=== PATIENT | male | born 1945 | race Caucasian/White ===

== ENCOUNTER 2019-04-10 08:11 | Inpatient (IN) | payer MEDICARE, SELFPAY ==
[2019-04-10] VITALS (32 sets, daily range): BP systolic 80–150; BP diastolic 33–97; PULSE 61–82; RESP 11–27; TEMP 36.5–37.5; O2SAT 90–100; BMI 32.7
--- NOTE | 2019-04-10 08:16 | EKG12_ITS ---
Test Reason : AFIB Blood Pressure : / mmHG Vent. Rate : 083 BPM Atrial Rate : 115 BPM P-R Int : 000 ms QRS Dur : 110 ms QT Int : 380 ms P-R-T Axes : 000 -46 -79 degrees QTc Int : 446 ms Atrial fibrillation with premature ventricular or aberrantly conducted complexes Low voltage QRS Left anterior fascicular block Inferior infarct , age undetermined Abnormal ECG When compared with ECG of 11-APR-2019 04:46, MANUAL COMPARISON REQUIRED, DATA IS UNCONFIRMED Confirmed by EYAD ABEL, FELICITA ([id number]), editor farm journal NICK MAYER ([id number]) on 04/18/2019 7:06:34 AM Referred By: Johnny Pantoja Confirmed By:SARAH CASTANO MD
[2019-04-10] MEDS: TICAGRELOR 90 MG TABLET 180 MG PO (08:20)
[2019-04-10] MEDS: Heparin Injection (Vial) 5,000 UNIT/ML VIAL 4000 UNIT IV (08:20)
[2019-04-10] MEDS: Aspirin 81 MG TAB.CHEW 324 MG PO (08:20)
--- NOTE | 2019-04-10 08:28 | ED.DCSUM_ITS ---
- ER Visit Summary Date of Service: 04/10/19 Chief Complaint: Chest pain History of Present Illness: The patient is a 73 M presents to the emergency department chest pain. Patient has a history of atrial fibrillation and hypertension. He denies any history of coronary vascular disease. He states over the past 2 weeks, he had shortness of breath when he exerts himself. He is also had some intermittent chest tightness. He states it started yesterday he felt like he was taking his breath away. He also made him diaphoretic and nauseated. States the pain relieved overnight but then returned this morning. He describes a tightness in his throat and upper chest. He also feels more short of breath. He denies any fevers or chills. He states he is never had pain like this before. Physical Examination: Vital signs reviewed General: Well-nourished, well-developed Head: Normocephalic, atraumatic Eyes: Pupils equal and reactive, extraocular muscles intact Neck, supple, no lymphadenopathy Heart: Regular rate and rhythm Respiratory: No distress, clear bilaterally Abdomen: Soft, nontender, nondistended, no peritoneal signs Back: Nontender Extremities: Nontender, no edema, no cords Skin: Normal color no rash Neuro: Alert and oriented, no focal or lateralizing deficits the patient's initial EKG Test Results: Insert Emergency Department Course and Treatment: Shows evidence of posterior infarction. I do not have an old EKG to compare to. Based on the patient's symptoms and physical exam, I do suspect that this is an acute ST elevation myocardial infarction. Patient was discussed immediately with Dr. Pantoja and the Science Manager was activated. He was given aspirin, Brilinta, heparin. He was consented for catheterization. He will be taken immediately to the Science Manager.] Treatment Plan: [] Disposition: Admission Impression: 1. ST elevation myocardial infarction This note was generated with [employer] dictation software. It may contain incorrect words, spelling, and punctuation that were not noted in review of the chart prior to signing ED Disposition - Plan for ED Patient: [facility] [Primary Care Provider] -
[2019-04-10 08:35] LABS: Absolute Lymphocyte Count 2.14 X10^3/ul (0.83-4.51); Absolute Neutrophil Count 8.9 X10^3/uL (2.0-7.7); Basophil# 0.02 X10^3/uL; Basophil% 0.2 % (0-1); Eosinophil# 0.03 X10^3/uL; Eosinophils% 0.3 % (0-5); Hematocrit 47.2 % (40-54); Hemoglobin 16.8 g/dl (13.0-16.5); Lymphocyte # 2.14 X10^3/ul (4.0); Mean Corp Hgb Conc 35.6 g/gl (32-36); Mean Corpuscular Hgb 30.8 pg (27.0-32.0); Mean Corpuscular Volume 86.4 fL (80-94); Mean Platelet Vol. 11.7 fl (6.2-12.0); Monocyte% 6.7 % (0-10); Neutrophil # 8.85 X10^3/uL (2.7-7.7); Neutrophil % 74.5 % (47-70); POSITIVE COUNT NO; POSITIVE DIFFERENTIAL NO; POSITIVE MORPHOLOGY NO; Platelet Count 117 K/mm3 (150-450); RBC Distribution Width CV 13.3 % (11.6-14.6); RBC Distribution Width SD 41.6 fl (35.1-43.9); Red Blood Count 5.46 M/mm3 (4.6-6.2); White Blood Count 11.9 K/mm3 (4.4-11.0)
[2019-04-10 08:54] LABS: Anion Gap 11 (5-15); BUN 15 mg/dL (7-18); Calcium,Total 9.5 mg/dL (8.5-10.1); Chloride 109 mmol/L (98-107); Creatinine, Serum 0.94 mg/dL (0.70-1.30); EST Glomerular Filtration Rate 84 mL/min (>60); Est Glom Filt Rate - Afr Amer 102 mL/min (>60); Estimated Creatinine Clearance 82.59 ml/min; Glucose 126 mg/dL (74-106); Potassium 4.9 mmol/L (3.5-5.1); Sodium Level 142 mmol/L (136-145)
--- NOTE | 2019-04-10 09:47 | EKG12_ITS ---
Test Reason : AM EKG Blood Pressure : / mmHG Vent. Rate : 069 BPM Atrial Rate : 069 BPM P-R Int : 158 ms QRS Dur : 112 ms QT Int : 432 ms P-R-T Axes : 069 -44 006 degrees QTc Int : 462 ms Sinus rhythm Left axis deviation Low voltage QRS Inferior infarct , age undetermined Abnormal ECG When compared with ECG of 10-APR-2019 10:16, MANUAL COMPARISON REQUIRED, DATA IS UNCONFIRMED Confirmed by EYAD ABEL, FELICITA ([id number]), international editorial producer NICK MAYER ([id number]) on 04/18/2019 7:08:55 AM Referred By: Johnny Pantoja Confirmed By:SARAH CASTANO MD
--- NOTE | 2019-04-10 09:47 | ECHOCS_ITS ---
Reason For Study: CAD/ASHED Procedure This was a 2D Doppler, Color Flow transthoracic echocardiogram. The study was technically difficult. Due to body habitus and PT scanned supine due to ballon pump. Contrast injection was performed. Left Ventricle Mildly dilated left ventricle. The estimated ejection fraction is 50 %. Normal diastology for age. Infero-Basal: Mildly hypokinetic. Right Ventricle Mildly dilated right ventricle. Normal systolic function. Atria The left atrium is severely enlarged. Normal right atrium. Normal atrial septum. Mitral Valve The mitral valve is structurally normal. No prolapse or stenosis seen. Trivial mitral valve insufficiency. Tricuspid Valve Normal tricuspid valve. Trivial tricuspid valve insufficiency. Right ventricular systolic pressure estimated to be 32 mmHg. Aortic Valve Trisinus/trileaflet aortic valve. Pulmonic Valve The pulmonic valve is not well visualized. Great Vessels Normal aortic root. Normal arch. Normal inferior vena cava. Pericardium/Pleural No pericardial effusion. Medication Diluted definity 4.0ml given slow IV push to enhance endocardial definition. MMode/2D Measurements & Calculations LVIDd: 5.4 cm IVSd: 1.2 cm Ao root diam: 3.4 cm LVIDs: 4.2 cm LVPWd: 1.2 cm RVDd: 3.7 cm FS: 22.1 % LAV(MOD-bp): 115.4 ml LA A4 area: 30.7 cm2 LA dimension(2D): 5.6 cm LAV(MOD-bp) Indexed: 48.0 ml/m2 LAV(MOD-sp2): 110.7 ml LAV(MOD-sp4): 116.3 ml RA A4 area: 18.5 cm2 Time Measurements MV dec time: 0.21 sec Doppler Measurements & Calculations MV E max patrick: 45.0 cm/sec Lat Peak E' Patrick: 10.3 cm/sec Med Peak E' Patrick: 6.6 cm/sec MV A max patrick: 49.9 cm/sec E/E' lat: 4.4 E/E' med: 6.8 MV E/A: 0.90 Ao V2 max: 103.1 cm/sec LV V1 max: 83.5 cm/sec TR max patrick: 260.6 cm/sec Ao max P.3 mmHg LV V1 max P.8 mmHg TR max P.2 mmHg Interpretation Summary Mildly dilated left ventricle. The estimated ejection fraction is 50 %. Normal diastology for age. Infero-Basal: Mildly hypokinetic Mildly dilated right ventricle. The left atrium is severely enlarged. Trivial mitral valve insufficiency. Trivial tricuspid valve insufficiency. Right ventricular systolic pressure estimated to be 32 mmHg. The study was technically difficult. There is no comparison study available. Contrast injection was performed. Ordering Physician: Johnny Pantoja Referring Physician: [facility] Performed By: Shelbie Ambrose RDCS, RVT
[2019-04-10] MEDS: HEPARIN/D5w 25,000 UNITS 25,000 UNITS/250 ML IV.SOLN. 10 UNITS IV (10:00)
--- NOTE | 2019-04-10 10:00 | NURSING ---
in ICU 7 per bed from mill labor supervisor, mill labor supervisor staff in attendance
--- NOTE | 2019-04-10 10:00 | EKG12_ITS ---
Test Reason : Blood Pressure : / mmHG Vent. Rate : 076 BPM Atrial Rate : 076 BPM P-R Int : 148 ms QRS Dur : 112 ms QT Int : 436 ms P-R-T Axes : 070 -27 057 degrees QTc Int : 490 ms Normal sinus rhythm Inferior infarct , age undetermined Abnormal ECG When compared with ECG of 10-APR-2019 10:14, MANUAL COMPARISON REQUIRED, DATA IS UNCONFIRMED Confirmed by EYAD ABEL, FELICITA ([id number]), market editor NICK MAYER ([id number]) on 04/18/2019 7:11:41 AM Referred By: Johnny Pantoja Confirmed By:SARAH CASTANO MD
[2019-04-10] MEDS: 0.9% Normal Saline 1,000 ML 150 ML IV ×2 (10:30→21:05)
[2019-04-10 10:36] LABS: ACT Activated Clotting Time 224 sec (74-137)
[2019-04-10 10:36] LABS: ACT Activated Clotting Time 213 sec (74-137)
--- NOTE | 2019-04-10 10:55 | CL.I_ITS ---
Patient Name: MONISHA VALERIO Study Date: 04/10/2019 Performing: Johnny Pantoja MD Ht: 74 inches 188 cm : 1945 Wt: 256.1 lbs 116 kg Age: 73 Gender: male BSA: 2.41 PROCEDURE(S) PERFORMED LI92-EMM/COR/LV [id number], PRADEEP AND/OR PTCA, ARTERY OR GRAFT, SINGLE VESSEL [id number] INSERTION CLINICAL PROFILE AND CO-MORBIDITIES Patient presents with STEMI for emergent cardiac cath. Indications: ACS <= 24 hrs, New Onset Angina <= 2 months, Suspected CAD, Other/STEMI Heart Failure: NYHA Class: 1, Newly Diagnosed: Yes, Heart Failure Type: Systolic Stress/Imaging Stress/Image Study Performed: No Angina Classification Anginal Classification w/in 2 Weeks: CCS IV CAD Presentations: STEMI. Symptom onset Date/Time: 04/09/2019 Time Not Available Comorbidities/Risk Factors: Hypertension Dyslipidemia Family History of Premature CAD CONCLUSIONS Segmented LV systolic dysfunction- Moderate LVEF: by LV gram 45 % Elevated Left Ventricular End Diastolic Pressure Triple vessel CAD of the LM, LAD, LCX, RCA and PDA. Successful PTCA/PRADEEP distal RCA with a 3.0 x 16 Promus Synergy, post dilated with a 3.0 x 8 NC Balloon ; 90%-->0%, no dissection or plaque shift into ostial PDA> Unable to cannulate PDA with multiple wires so no PCI of PDA performed. Will leave for CABG vs elect milind PCI in the future. RECOMMENDATIONS Referred for immediate PCI Surgery consult for coronary revascularization Highly recommend quitting all tobacco products Follow up with primary security strategist Risk factor modification ASA Indefinitley Plavix for at least 12 months Routine post interventional care Refer for Outpatient Cardiac Rehab Manual sheath removal per protocol Emergent IABP placed given hypotension, bradycardia, LV dysfunction and severe multi vessel CAD of LM and LAD. Follow up with Dr. Pantoja Will refer to CV surgeon for either high risk PCI to LM, LAD and/or LCX vs CABG. DESCRIPTION OF PROCEDURE The patient arrived to the procedure lab. The risks and benefits of the procedure as well as a full d escription of our services here and lack of surgical backup were fully explained to the patient and/o r their significant other prior to the catheterization. The Timeout was completed, verifying the inocente ect patient and procedure. The patient's procedural site was prepped and draped in the usual fashion. Local anesthetic was given subcutaneously to right groin region with Lidocaine 2%. Using a modified Seldinger technique, arterial access was obtained via the right femoral artery, a 6Fr sheath was inse rted.. Left Coronary Artery selective angiography was performed in multiple views using a 4 Fr. JL5 catheter. Right Coronary Artery selective angiography was then performed in multiple views using a 6 Fr. HS II guide. Left Ventriculography was performed in VIVAS projection using a 4 Fr. Pigtail catheter . LV to AO pullback pressures were then recordedArrow 40cc 7.5F UltraFlex IABP - Qty: 1 Each Part #: [id number], A 40cc IABP catheter was inserted into the right femoral artery, The IABP catheter and sheath were secured in placeThe images were reviewed and options discussed. A decision was then made to proceed with an Intervention, IVUS or other adjunct procedure. HS II Guide catheter was inserted and engaged into the RCA. Runthrough Guide wire was advanced to the RCA. 2 x 12 Emerge Balloon catheter was advanced across lesion in the right coronary, distal. PT CA balloon inflated at 6 atms for 10 secs. PTCA balloon inflated at 6 atms for 10 secs. 2 x 12 Emerge Balloon catheter was inserted on runthrough 2. 3.0 x 16 Synergy Drug Eluting stent was advanced acro ss the lesion in the right coronary, distal. Angiogram performed post stent deployment. 3.0 x 8 NC Em erge Balloon catheter was inserted post stent. Angiogram performed post balloon dilatation. The art erial sheath was sutured in place with heparinized normal saline under pressure CORONARY ANGIOGRAPHY DOMINANCE: Right Dominant LEFT HEART ASSESSMENT Left Ventricular Ejection Fraction: by LV Gram 45 % Depressed Left Ventricular systolic function LVEDP: 18 mmHg Elevated Left Ventricular End Diastolic Pressure Inferior Mid Hypokinesis - Moderate LEFT MAIN: 80 distal % Stenosis LEFT ANTERIOR DESCENDING ARTERY: MID LAD: 75 % Stenosis CIRCUMFLEX ARTERY: PROX CIRC: 65-70 % Stenosis RIGHT CORONARY ARTERY: PROX RCA: Mild luminal irregularities less than 30% DISTAL RCA: 90 % Stenosis RT PLV: No significant disease noted RT PDA: Mid - 85 % Stenosis INTERVENTION INFORMATION LESION SITE: RCA (Distal) Lesion Complexity: High/C, thrombus present: Yes, lesion at bifurcation: No, lesion length: 16 mm, cu lprit lesion: Yes Pre Stenosis: 90 % Pre intervention LEENA flow: 2 PROCEDURE: Drug Eluting Stent with pre and post dilatation Post Stenosis: 0 % Post intervention LEENA flow: 3 Lesion Devices: Medtronic 6 Fr HSII 100cm Guide Catheter Terumo .014 Runthrough Extra Floppy 180cm straight Iraj Sci EMERGE MR 2.00x12 BALLOON Terumo .014 Runthrough Extra Floppy 180cm straight Iraj Sci Synergy MR PRADEEP 3.00x16 Iraj Sci NC EMERGE MR 3.00x08 BALLOON COMPLICATIONS No Complications PROCEDURE MEDICATIONS Oxygen: 2 L/min via nasal cannula Atropine 1mg/10ml 0.5 amp @ 04/10/2019 08:50:53 Heparin 6000 unit(s) IV 04/10/2019 08:40:33 Heparin 25,000u / 250ml D5W @ 800 u/hr IV started 04/10/2019 09:31:05 Nitro 200 mcg IC 04/10/2019 08:43:25 Nitro 200 mcg IC 04/10/2019 08:43:25 Nitro 200 mcg IC 04/10/2019 09:12:58 IV Bolus: .9 NaCl 1100 ml total 04/10/2019 09:30:48 SUMMARY OF HEMODYNAMIC DATA Time AIR REST AO 125/89 (107) SA 08:35:41 AO 149/86 (113) 08:40:26 AO 79/48 (61) 08:50:17 LV 109/-4, 18 09:21:20 LVp 107/-7, 17 09:21:23 AOp 100/44 (66) 09:21:28 Signed By Johnny Pantoja MD On 04/10/2019 10:55:18 Johnny Pantoja MD
--- NOTE | 2019-04-10 11:49 | HP.PCM_ITS ---
Problem List (1) Hypertension Status: Chronic (2) Dyslipidemia Status: Chronic (3) Obstructive sleep apnea Status: Chronic Comment: On CPAP (4) Paroxysmal atrial fibrillation Status: Chronic (5) Right bundle branch block Status: Chronic (6) Obesity Status: Chronic (7) Chronic anticoagulation Status: Chronic (8) Nephrolithiasis Status: Chronic Comment: X 1 in the past (9) STEMI (ST elevation myocardial infarction) Status: Acute (10) Atherosclerotic heart disease of [place] coronary artery with other forms of angina pectoris Status: Chronic (11) Stented coronary artery Status: Acute Comment: Segmented LV systolic dysfunction- Moderate; LVEF: by LV gram 45 %; Elevated Left Ventricular End Diastolic Pressure; Triple vessel CAD of the LM, LAD, LCX, RCA and PDA. Successful PTCA/PRADEEP distal RCA with a 3.0 x 16 Promus Synergy, post dilated with a 3.0 x 8 NC Balloon; 90%-->0%, no dissection or plaque shift into ostial PDA> Unable to cannulate PDA with multiple wires so no PCI of PDA performed. Will leave for CABG vs elective PCI in the future. History of Present Illness Date of Admission: 04/10/19 Chief Complaint: Chest pain with shortness of breath, diaphoresis, nausea, radiation to the neck and left arm The patient is a 73 year old M with a past medical history of hypertension, dyslipidemia, paroxysmal atrial fibrillation, chronic anticoagulation with Eliquis, nephrolithiasis, obstructive sleep apnea, family history of premature CAD and obesity who presented to the ED at [facility] on 04/10/2019 complaining of crushing substernal and left chest pain that radiated to the neck and down the left arm and was associated with diaphoresis, nausea and shortness of breath. He had been having stuttering chest pain for the pr eceding 7 to 10 days that came on with exertion but then went away. The chest pain became constant on 04/09/2019. EKG in the emergency room showed ST elevation and a STEMI alert was called. He was taken to the [facility] by Dr. Pantoja and the cath showed a 45% ejection fraction on the left ventriculogram. There was elevated left ventricular end-diastolic pressure and triple disease involving the LM, LAD, LCx, RCA and PDA. He underwent successful PTCA/PRADEEP of the distal right coronary artery. Dr. Pantoja was unable to cannulate the PDA so no PCI was performed. Postprocedure he was transferred to the intensive care unit on a balloon pump at 1:1. Lab and imaging in the emergency department were reviewed. White blood cell count was 11.9 and the hemoglobin 16.8. Platelets are low at 117,000. BMP is unremarkable. Creatinine is 0.94. Random glucose is 126. Troponin was increased at 8.28. No CXR done in the ED. Past Medical History Past Medical History (Chronic Problems): Chronic Problems (Last Reviewed 04/10/19 @ 11:54 by Seema Jay DO) Hypertension (Chronic) Dyslipidemia (Chronic) Obstructive sleep apnea (Chronic) On CPAP Paroxysmal atrial fibrillation (Chronic) Right bundle branch block (Chronic) Obesity (Chronic) Chronic anticoagulation (Chronic) Nephrolithiasis (Chronic) X 1 in the past Atherosclerotic heart disease of [place] coronary artery with other forms of angina pectoris (Chronic) Medical History: Medical History (Last Reviewed 04/10/19 @ 11:54 by Seema Jay DO) STEMI (ST elevation myocardial infarction) (Acute) I21.3 Atherosclerotic heart disease of [place] coronary artery with other forms of angina pectoris (Chronic) I25.118 Allergies No Known Allergies Allergy (Verified 04/10/19 08:17) Home Medications: Ambulatory Orders Medication Instructions Recorded Acetaminophen [Tylenol Extra 500 mg PO Q6H PRN PRN 04/10/19 Strength] Albuterol IH (ProAir) [Proair Hfa 1 - 2 puff INHALATION Q6H PRN PRN 04/10/19 (SP)Vent Pts] Apixaban [Eliquis] 5 mg PO BID 04/10/19 Loratadine [Claritin] 10 mg PO DAILY PRN PRN 04/10/19 Metoprolol Tartrate [Lopressor 25 mg PO BID 04/10/19 (Beta Kaitlin)] Triamcinolone 0.1% Cream [Kenalog] 1 applic TOPICAL BID PRN 04/10/19 Surgical History: Surgical History (Last Reviewed 04/10/19 @ 11:54 by Seema Jay DO) Stented coronary artery (Acute) Onset Date: 04/10/19 Z95.5 Segmented LV systolic dysfunction- Moderate; LVEF: by LV gram 45 %; Elevated Left Ventricular End Diastolic Pressure; Triple vessel CAD of the LM, LAD, LCX, RCA and PDA. Successful PTCA/PRADEEP distal RCA with a 3.0 x 16 Promus Synergy, post dilated with a 3.0 x 8 NC Balloon; 90%-->0%, no dissection or plaque shift into ostial PDA> Unable to cannulate PDA with multiple wires so no PCI of PDA performed. Will leave for CABG vs elective PCI in the future. Surgical History: noncontributory, - - Bilateral repair of torn quadriceps for Antonio muscles by Dr. Nick Soares. Psychiatric History: No pertinent psych hx Lives: Spouse/ Significant Other Smoking Status: Never smoker Tobacco Use: Non-smoker Alcohol: Rare Drugs: None - *Family History Maternal History Items: - - His mother of complications of COPD and she was a smoker. Paternal History Items: - - His father passed with cardiac disease and he was also a smoker. Sibling History Items: - - He has 2 sisters and neither of them have coronary disease. Review of Systems Constitutional: Denies: Chills, Fever, Weight Change HEENT: Denies: Head Aches, Sinus Congestion, Sinus Drainage Cardiovascular: Reports: Chest Pain, Heaviness, Palpitations. Denies: Light Headedness, Syncope Respiratory: Reports: Shortness of breath at rest, Shortness of breath upon exertion. Denies: Cough, Sputum production Gastrointestinal: Reports: Nausea. Denies: Abdominal Pain, Vomiting Genitourinary: Reports: Nocturia - Every 3-4 hours at night. Denies: Dysuria, Hesitancy, Incontinence, Retention, Urgency Musculoskeletal: Reports: Arm Pain - Left arm pain and neck pain associated with chest pain, Neck Pain. Denies: Joint Pain, Joint Tenderness Skin: Denies: Jaundice, Rash, Wounds Neurological: Denies: Focal weakness, Numbness, Tingling, Tremor, Seizures Psychiatric: Denies: Anxiety, Depression, Homicidal Ideations, Suicidal Ideations Hematologic/ Lymphatic: Denies: Easy Bruising, Easy Bleeding, Hx of blood clot VTE Information - Inpt Only VTE Present on Admission: No VTE Mechan Device Prophylaxis: SCD's, Knee High MERT Hose VTE Pharm Prophylaxis ordered?: No Reason prophylaxis not ordered:: Treatment Not Indicated - Patient is on a continuous heparin infusion post cardiac cath Patient Problems: Active and Suspected Problems (Last Reviewed 04/10/19 @ 11:54 by Sharda Sementi, DO) STEMI (ST elevation myocardial infarction) (Acute) Stented coronary artery (Acute 04/10/19) Segmented LV systolic dysfunction- Moderate; LVEF: by LV gram 45 %; Elevated Left Ventricular End Diastolic Pressure; Triple vessel CAD of the LM, LAD, LCX, RCA and PDA. Successful PTCA/PRADEEP distal RCA with a 3.0 x 16 Promus Synergy, post dilated with a 3.0 x 8 NC Balloon; 90%-->0%, no dissection or plaque shift into ostial PDA> Unable to cannulate PDA with multiple wires so no PCI of PDA performed. Will leave for CABG vs elective PCI in the future. - Physical Exam General: Alert, Oriented x3, Cooperative, - - lying flat in bed in the ICU with balloon pump in the R groin HEENT: Atraumatic, PERRLA, EOMI, Normocephalic Oral: No Gingival or Mucosal Lesions/ Ulcerations, Dry Mucosa Neck: Supple, No JVD, Negative Carotid Bruits, Trachea Midline Lungs: Clear to auscultation - anterior and lateral, Normal air movement, - - Not tachypneic, no conversational dyspnea, no accessory muscle use Cardiovascular: Normal S1, Normal S2, No murmurs, Irregular Rate - NSR with PAF ( brief runs) when he is in AF he has a BBB, No rub noted, No Gallop Abdomen: Bowel Sounds Present, Soft, Non Tender, Non-Distended, Obese Extremities: No clubbing, No cyanosis, No edema, Capillary Refill Less than 3 Seconds, Diminished Peripheral Pulses - radial pulses are 3/3 but the pedal pulses are decreased Skin: No rashes, No breakdown Musculoskeletal: No Tenderness to Palpation of Joints or Extremities Neurological: Cranial nerves II-XII grossly intact, Neuro grossly intact Psych/Mental Status: Normal Affect, Appropriate Vital Signs Temp Pulse Resp BP Pulse Ox 98.1 F 80 20 H 150/85 H 99 04/10/19 08:12 04/10/19 08:12 04/10/19 08:17 04/10/19 08:12 04/10/19 08:12 Oxygen Delivery Method Room Air Weight: 255 lb Body Mass Index (BMI) 32.7 Laboratory Tests Past 24 Hrs 04/10/19 04/10/19 04/10/19 08:24 08:24 08:24 WBC 11.9 H RBC 5.46 Hgb 16.8 H Hct 47.2 MCV 86.4 MCH 30.8 MCHC 35.6 RDW 13.3 RDW Differential 41.6 Plt Count 117 L MPV 11.7 Immature Gran % (Auto) 0.300 Neut % (Auto) 74.5 H Lymph % (Auto) 18.0 L Churchill % (Auto) 6.7 Eos % (Auto) 0.3 Baso % (Auto) 0.2 Absolute Neuts (auto) 8.9 H Absolute Lymphs (auto) 2.14 Total Counted Not Reportable PT Pending INR Pending APTT Pending Activated Clotting Time Sodium 142 Potassium 4.9 Chloride 109 H Carbon Dioxide 22.0 Anion Gap 11 BUN 15 Creatinine 0.94 Estim Creat Clear Calc 82.59 Est GFR (MDRD) Af Amer 102 Est GFR (MDRD) Non-Af 84 BUN/Creatinine Ratio 16.0 Glucose 126 H Calcium 9.5 Troponin I 8.280 H* 04/10/19 04/10/19 08:35 09:24 WBC RBC Hgb Hct MCV MCH MCHC RDW RDW Differential Plt Count MPV Immature Gran % (Auto) Neut % (Auto) Lymph % (Auto) Churchill % (Auto) Eos % (Auto) Baso % (Auto) Absolute Neuts (auto) Absolute Lymphs (auto) Total Counted PT INR APTT Activated Clotting Time 213 H 224 H Sodium Potassium Chloride Carbon Dioxide Anion Gap BUN Creatinine Estim Creat Clear Calc Est GFR (MDRD) Af Amer Est GFR (MDRD) Non-Af BUN/Creatinine Ratio Glucose Calcium Troponin I Assessment/Plan All Active Problems (Last Reviewed 04/10/19 @ 11:54 by Seema Jay DO) STEMI (ST elevation myocardial infarction) (Acute) Stented coronary artery (Acute 04/10/19) Impressions 1. STEMI 2. Triple-vessel coronary artery disease with PTCA/PRADEEP of the RCA 3. Ischemic cardiomyopathy with a 45% EF estimated on left ventriculogram 4. Hyperlipidemia 5. Hypertension 6. Nephrolithiasis-x1 remotely 7. Obesity 8. Paroxysmal atrial fibrillation 9. Chronic anticoagulation with apixaban 10. Intermittent right bundle branch block 11. NSVT Currently being maintained on a balloon pump at 1:1 On a continuous heparin infusion 2 antiplatelet drugs for a year-currently on aspirin and Brilinta Metoprolol 12.5 mg p.o. twice daily Lisinopril 2.5 mg p.o. daily Atorvastatin 80 mg p.o. nightly. Patient has been on a lipid-lowering agent in the past and does not recall the name. He stated it was stopped because of joint and muscle pain Will need a CABG going forward. Keep in flat in bed as long as the balloon pump is in place. D/W Dr. Pantoja Code Visit Inpatient E&M: [id number] Init Hosp L3
[2019-04-10 12:15] LABS: International Normalized Ratio 1.3
[2019-04-10 12:20] LABS: Partial Thromboplast Time 145.8 Seconds (24.1-36.2)
--- NOTE | 2019-04-10 12:49 | CASEMGMT ---
Patient has a Healthcare POA and Healthcare LW. He is aware they are not on file at [facility]. Rajani SAVAGE MSW
[2019-04-10] MEDS: Metoprolol Tartrate 25 MG Tablet 12.5 MG PO (13:22)
--- NOTE | 2019-04-10 14:31 | NURSING ---
echo in progress
--- NOTE | 2019-04-10 15:32 | NURSING ---
moved from ICU7 to ICU 1
[2019-04-10] MEDS: Lisinopril 2.5 MG Tablet PO (15:54)
[2019-04-10] MEDS: Acetaminophen 325 MG Tablet 650 MG PO (15:54)
[2019-04-10 16:42] LABS: Anion Gap 8 (5-15); BUN 12 mg/dL (7-18); BUN/Creat Ratio 17.1 RATIO (10-20); Calcium,Total 8.2 mg/dL (8.5-10.1); Chloride 112 mmol/L (98-107); EST Glomerular Filtration Rate 117 mL/min (>60); Est Glom Filt Rate - Afr Amer 142 mL/min (>60); Estimated Creatinine Clearance 77.63 ml/min; Glucose 101 mg/dL (74-106); Magnesium 1.9 mg/dL (1.6-2.6); Potassium 3.3 mmol/L (3.5-5.1); Sodium Level 143 mmol/L (136-145)
[2019-04-10 17:11] LABS: Bedside Glucose 83 mg/dL (70-110)
[2019-04-10] MEDS: 0.9% Normal Saline 1,000 ML 999 ML IV (19:30)
[2019-04-10] MEDS: Heparin Injection (Vial) 5,000 UNIT/ML VIAL IV (19:38)
[2019-04-10] MEDS: Zolpidem Tartrate 5 MG Tablet PO (21:05)
[2019-04-10] MEDS: Atorvastatin Calcium 80 MG Tablet PO (21:05)
[2019-04-10] MEDS: TICAGRELOR 90 MG TABLET PO (21:05)
[2019-04-10 21:45] LABS: Bedside Glucose 98 mg/dL (70-110)
[2019-04-11] VITALS (30 sets, daily range): BP systolic 86–145; BP diastolic 43–94; PULSE 64–82; RESP 13–23; TEMP 37–37.7; O2SAT 91–98
[2019-04-11] MEDS: Acetaminophen 325 MG Tablet 650 MG PO ×4 (00:03→22:02)
[2019-04-11] MEDS: Zolpidem Tartrate 5 MG Tablet PO (00:30)
[2019-04-11] MEDS: Morphine 2 MG/ML Syringe IV ×3 (00:35→08:32)
[2019-04-11] MEDS: 0.9% NaCl Peripheral Flush Adult/Peds IV ×3 (00:36→04:53)
[2019-04-11] MEDS: Heparin Injection (Vial) 5,000 UNIT/ML VIAL IV (02:44)
[2019-04-11] MEDS: 0.9% Normal Saline 1,000 ML 150 ML IV (02:45)
[2019-04-11] MEDS: LORazepam 1 MG Tablet PO (02:48)
[2019-04-11 04:52] LABS: Hematocrit 39.5 % (40-54); Hemoglobin 13.8 g/dl (13.0-16.5); Mean Corp Hgb Conc 34.9 g/gl (32-36); Mean Corpuscular Hgb 30.2 pg (27.0-32.0); Mean Corpuscular Volume 86.4 fL (80-94); Mean Platelet Vol. 11.7 fl (6.2-12.0); Platelet Count 94 K/mm3 (150-450); RBC Distribution Width CV 13.4 % (11.6-14.6); RBC Distribution Width SD 41.6 fl (35.1-43.9); Red Blood Count 4.57 M/mm3 (4.6-6.2); White Blood Count 8.5 K/mm3 (4.4-11.0)
[2019-04-11 04:54] LABS: Scan Indicated on CBC? Y/N NO
[2019-04-11 05:00] LABS: AST(SGOT) 261 U/L (15-37); Alanine Aminotransfer ALT/SGPT 56 U/L (16-61); Albumin, Serum 2.8 g/dL (3.2-5.0); Alkaline Phosphatase 36 U/L (45-117); Anion Gap 7 (5-15); BUN 14 mg/dL (7-18); BUN/Creat Ratio 18.1 RATIO (10-20); Calcium,Total 7.8 mg/dL (8.5-10.1); Chloride 115 mmol/L (98-107); Cholesterol 123 mg/dL (200); Creatinine, Serum 0.78 mg/dL (0.70-1.30); EST Glomerular Filtration Rate 105 mL/min (>60); Est Glom Filt Rate - Afr Amer 127 mL/min (>60); Estimated Creatinine Clearance 77.63 ml/min; Globulin 2.8 g/dL (2.2-4.2); Glucose 100 mg/dL (74-106); High Density Lipoprotein 30 mg/dL; Potassium 3.8 mmol/L (3.5-5.1); Protein, Total 5.6 g/dL (6.4-8.2); Sodium Level 145 mmol/L (136-145); Triglycerides 95 mg/dL; Very Low Density Lipoprotein 19 mg/dL (5-40)
--- NOTE | 2019-04-11 05:55 | RAD_ITS ---
HISTORY: verify balloon position EXAM: XR Chest 1 View: COMPARISON: None FINDINGS: # of images incl. paperwork: 3 3 images. None of the images are centered over the chest. The tip of the perceived intra-aortic balloon is at the aortic arch, just a few millimeters below the top of the aortic arch. Pulmonary edema. Elevation of the right hemidiaphragm. Heart is not enlarged. Thoracic spondylosis Pulmonary vascularity is indistinct. No effusions. RAD/Chest 1 View (Portable) IMPRESSION: Intra-aortic balloon pump terminates at the level of the thoracic aortic arch. at 0500 Reported and signed by: Juan Peters MD Electronically Signed: Juan ePters MD at 4:59 EDT Tel , Service support ,
[2019-04-11] MEDS: CHLORHEXIDINE GLUC 2% CLOTH 1 EACH TOWELETTE TOPICAL (06:25)
--- NOTE | 2019-04-11 06:49 | CON.PCM_ITS ---
Reason for Consult Date of Consultation: 04/11/19 Reason for Consultation: IABP History of Present Illness: The patient is a 73-year-old male, with a history as outlined below, who presented to the emergency department on April 10 with complaints of chest pain. The patient does have a known history of paroxysmal atrial fibrillation, for which he is chronically anticoagulated on Eliquis, along with a history of obstructive sleep apnea. On presentation to the emergency department, the angle [place] was noted to be afebrile and hemodynamically stable. He was maintaining appropriate oxygen saturations on room air. Initial laboratory evaluation revealed an increased hemoglobin to 17 along with a platelet count of 117,000. Chemistry profile was unrevealing. Initial troponin was increased to 8.2. EKG revealed findings consistent with posterior infarction. A STEMI alert was called and the patient was subsequently taken to the cardiac [facility]. Cardiac catheterization performed on April 10 revealed evidence of segmental LV systolic dysfunction with an ejection fraction of 45%, elevated LVEDP along with multivessel coronary artery disease. The patient underwent successful PTCA with drug-eluting stent placement to the distal RCA. An intra-aortic balloon pump was placed. The patient was then transferred to the medical intensive care unit for ongoing management. No overnight issues were identified by the nursing staff. The patient remains hemodynamically stable on room air. The patient is a lifelong non-smoker and denies significant secondhand smoke exposure. He was never diagnosed with asthma in childhood. The patient does have a known history of obstructive sleep apnea and is currently prescribed nocturnal auto-PAP. His obstructive sleep apnea is managed by the [facility]. Past Medical History Past Medical History (Chronic Problems): Chronic Problems (Last Reviewed 04/10/19 @ 11:54 by Seema Jay DO) Hypertension (Chronic) Dyslipidemia (Chronic) Obstructive sleep apnea (Chronic) On CPAP Paroxysmal atrial fibrillation (Chronic) Right bundle branch block (Chronic) Obesity (Chronic) Chronic anticoagulation (Chronic) Nephrolithiasis (Chronic) X 1 in the past Atherosclerotic heart disease of [place] coronary artery with other forms of angina pectoris (Chronic) Medical History: Medical History (Last Reviewed 04/10/19 @ 11:54 by Seema Jay DO) STEMI (ST elevation myocardial infarction) (Acute) I21.3 Atherosclerotic heart disease of [place] coronary artery with other forms of angina pectoris (Chronic) I25.118 Allergies No Known Allergies Allergy (Verified 04/10/19 08:17) Home Medications: Ambulatory Orders Medication Instructions Recorded Acetaminophen [Tylenol Extra 500 mg PO Q6H PRN PRN 04/10/19 Strength] Albuterol IH (ProAir) [Proair Hfa 1 - 2 puff INHALATION Q6H PRN PRN 04/10/19 (SP)Vent Pts] Apixaban [Eliquis] 5 mg PO BID 04/10/19 Loratadine [Claritin] 10 mg PO DAILY PRN PRN 04/10/19 Metoprolol Tartrate [Lopressor 25 mg PO BID 04/10/19 (Beta Kaitlin)] Triamcinolone 0.1% Cream [Kenalog] 1 applic TOPICAL BID PRN 04/10/19 Surgical History: Surgical History (Last Reviewed 04/10/19 @ 11:54 by Seema Jay DO) Stented coronary artery (Acute) Onset Date: 04/10/19 Z95.5 Segmented LV systolic dysfunction- Moderate; LVEF: by LV gram 45 %; Elevated Left Ventricular End Diastolic Pressure; Triple vessel CAD of the LM, LAD, LCX, RCA and PDA. Successful PTCA/PRADEEP distal RCA with a 3.0 x 16 Promus Synergy, post dilated with a 3.0 x 8 NC Balloon; 90%-->0%, no dissection or plaque shift into ostial PDA> Unable to cannulate PDA with multiple wires so no PCI of PDA performed. Will leave for CABG vs elective PCI in the future. Surgical History: noncontributory, - - Bilateral repair of torn quadriceps for Antonio muscles by Dr. Nick Soares. Psychiatric History: No pertinent psych hx Lives: Spouse/ Significant Other Smoking Status: Never smoker Tobacco Use: Non-smoker Alcohol: Rare Drugs: None - *Family History Maternal History Items: - - His mother of complications of COPD and she was a smoker. Paternal History Items: - - His father passed with cardiac disease and he was also a smoker. Sibling History Items: - - He has 2 sisters and neither of them have coronary disease. Review of Systems Constitutional: Denies: Chills, Fever, Weight Change HEENT: Denies: Head Aches, Sinus Congestion, Sinus Drainage Cardiovascular: Reports: Chest Pain Respiratory: Reports: Shortness of Breath. Denies: Cough, Shortness of breath at rest, Sputum production Gastrointestinal: Denies: Abdominal Pain, Nausea, Vomiting Genitourinary: Denies: Dysuria Musculoskeletal: Denies: Joint Pain, Joint Tenderness Skin: Denies: Rash, Wounds Neurological: Denies: Numbness, Tingling, Focal weakness Psychiatric: Reports: Anxiety Hematologic/ Lymphatic: Denies: Easy Bruising, Easy Bleeding Patient Problems: Active and Suspected Problems (Last Reviewed 04/10/19 @ 11:54 by Seema Jay DO) STEMI (ST elevation myocardial infarction) (Acute) Stented coronary artery (Acute 04/10/19) Segmented LV systolic dysfunction- Moderate; LVEF: by LV gram 45 %; Elevated Left Ventricular End Diastolic Pressure; Triple vessel CAD of the LM, LAD, LCX, RCA and PDA. Successful PTCA/PRADEEP distal RCA with a 3.0 x 16 Promus Synergy, post dilated with a 3.0 x 8 NC Balloon; 90%-->0%, no dissection or plaque shift into ostial PDA> Unable to cannulate PDA with multiple wires so no PCI of PDA performed. Will leave for CABG vs elective PCI in the future. Objective: The patient's most recent lab work, culture data and imaging studies have all been personally reviewed. - Physical Exam General: Alert, Oriented x3, Cooperative, No apparent distress HEENT: Atraumatic, PERRLA, Normocephalic Oral: No Gingival or Mucosal Lesions/ Ulcerations Neck: Supple, No Nodes, Trachea Midline Lungs: Normal air movement, No rhonchi, No wheeze, No rales Cardiovascular: Regular rate, Regular Rhythm, Normal S1, Normal S2, No murmurs, - - IABP in place augmenting at 1:1 Abdomen: Bowel Sounds Present, Soft, Non Tender, Obese Extremities: No clubbing, No cyanosis, Edema Skin: No breakdown Musculoskeletal: No Tenderness to Palpation of Joints or Extremities, No Muscle Wasting Lymphatic: No Cervical, Supraclavicular, or Inguinal Adenopathy Neurological: Cranial nerves II-XII grossly intact, Neuro grossly intact Psych/Mental Status: Normal Affect, Appropriate Vital Signs Temp Pulse Resp BP Pulse Ox 98.7 F 68 18 103/57 L 91 04/11/19 06:00 04/11/19 06:00 04/11/19 06:00 04/11/19 06:00 04/11/19 06:00 Oxygen Flow Rate (L/min) 1 Oxygen Delivery Method Room Air Weight: 255 lb Body Mass Index (BMI) 32.7 Intake and Output for Last 24 Hours 04/09/19 04/10/19 04/11/19 23:59 23:59 23:59 Intake Total 3872.0 / 4076.3 1134.0 / 1134.0 Output Total 1048 / 1091 331 / 331 Balance 2824.0 / 2985.3 803.0 / 803.0 Laboratory Tests Past 24 Hrs 04/10/19 04/10/19 04/10/19 08:24 08:24 08:24 WBC 11.9 H RBC 5.46 Hgb 16.8 H Hct 47.2 MCV 86.4 MCH 30.8 MCHC 35.6 RDW 13.3 RDW Differential 41.6 Plt Count 117 L MPV 11.7 Immature Gran % (Auto) 0.300 Neut % (Auto) 74.5 H Lymph % (Auto) 18.0 L [place] % (Auto) 6.7 Eos % (Auto) 0.3 Baso % (Auto) 0.2 Absolute Neuts (auto) 8.9 H Absolute Lymphs (auto) 2.14 Total Counted Not Reportable PT Cancelled INR Cancelled APTT Cancelled Activated Clotting Time Sodium 142 Potassium 4.9 Chloride 109 H Carbon Dioxide 22.0 Anion Gap 11 BUN 15 Creatinine 0.94 Estim Creat Clear Calc 82.59 Est GFR (MDRD) Af Amer 102 Est GFR (MDRD) Non-Af 84 BUN/Creatinine Ratio 16.0 Glucose 126 H Calcium 9.5 Magnesium Total Bilirubin AST ALT Alkaline Phosphatase Troponin I 8.280 H* Total Protein Albumin Globulin Albumin/Globulin Ratio Triglycerides Cholesterol LDL Cholesterol VLDL Cholesterol HDL Cholesterol 04/10/19 04/10/19 04/10/19 08:35 09:24 12:00 WBC RBC Hgb Hct MCV MCH MCHC RDW RDW Differential Plt Count MPV Immature Gran % (Auto) Neut % (Auto) Lymph % (Auto) [place] % (Auto) Eos % (Auto) Baso % (Auto) Absolute Neuts (auto) Absolute Lymphs (auto) Total Counted PT 16.0 H INR 1.3 APTT 145.8 H* Activated Clotting Time 213 H 224 H Sodium Potassium Chloride Carbon Dioxide Anion Gap BUN Creatinine Estim Creat Clear Calc Est GFR (MDRD) Af Amer Est GFR (MDRD) Non-Af BUN/Creatinine Ratio Glucose Calcium Magnesium Total Bilirubin AST ALT Alkaline Phosphatase Troponin I Total Protein Albumin Globulin Albumin/Globulin Ratio Triglycerides Cholesterol LDL Cholesterol VLDL Cholesterol HDL Cholesterol 04/10/19 04/10/19 04/10/19 14:15 16:15 18:10 WBC RBC Hgb Hct MCV MCH MCHC RDW RDW Differential Plt Count MPV Immature Gran % (Auto) Neut % (Auto) Lymph % (Auto) [place] % (Auto) Eos % (Auto) Baso % (Auto) Absolute Neuts (auto) Absolute Lymphs (auto) Total Counted PT INR APTT 40.0 H Activated Clotting Time Sodium 143 Potassium 3.3 L Chloride 112 H Carbon Dioxide 23.0 Anion Gap 8 BUN 12 Creatinine 0.70 Estim Creat Clear Calc 77.63 Est GFR (MDRD) Af Amer 142 Est GFR (MDRD) Non-Af 117 BUN/Creatinine Ratio 17.1 Glucose 101 Calcium 8.2 L Magnesium 1.9 Total Bilirubin AST ALT Alkaline Phosphatase Troponin I 52.800 H* Total Protein Albumin Globulin Albumin/Globulin Ratio Triglycerides Cholesterol LDL Cholesterol VLDL Cholesterol HDL Cholesterol 04/11/19 04/11/19 04/11/19 01:48 04:00 04:00 WBC 8.5 RBC 4.57 L Hgb 13.8 Hct 39.5 L MCV 86.4 MCH 30.2 MCHC 34.9 RDW 13.4 RDW Differential 41.6 Plt Count 94 L MPV 11.7 Immature Gran % (Auto) Neut % (Auto) Lymph % (Auto) [place] % (Auto) Eos % (Auto) Baso % (Auto) Absolute Neuts (auto) Absolute Lymphs (auto) Total Counted PT INR APTT 40.0 H Activated Clotting Time Sodium 145 Potassium 3.8 Chloride 115 H Carbon Dioxide 23.0 Anion Gap 7 BUN 14 Creatinine 0.78 Estim Creat Clear Calc 77.63 Est GFR (MDRD) Af Amer 127 Est GFR (MDRD) Non-Af 105 BUN/Creatinine Ratio 18.1 Glucose 100 Calcium 7.8 L Magnesium Total Bilirubin 1.30 H AST 261 H ALT 56 Alkaline Phosphatase 36 L Troponin I Total Protein 5.6 L Albumin 2.8 L Globulin 2.8 Albumin/Globulin Ratio 1.0 Triglycerides 95 Cholesterol 123 LDL Cholesterol 74 VLDL Cholesterol 19 HDL Cholesterol 30 L POC Glucose 04/10/19 04/10/19 21:17 15:31 POC Glucose 98 83 Assessment/Plan Active and Suspected Problems (Last Reviewed 04/10/19 @ 11:54 by Seema Jay DO) STEMI (ST elevation myocardial infarction) (Acute) Stented coronary artery (Acute 04/10/19) Segmented LV systolic dysfunction- Moderate; LVEF: by LV gram 45 %; Elevated Left Ventricular End Diastolic Pressure; Triple vessel CAD of the LM, LAD, LCX, RCA and PDA. Successful PTCA/PRADEEP distal RCA with a 3.0 x 16 Promus Synergy, post dilated with a 3.0 x 8 NC Balloon; 90%-->0%, no dissection or plaque shift into ostial PDA> Unable to cannulate PDA with multiple wires so no PCI of PDA performed. Will leave for CABG vs elective PCI in the future. RECOMMENDATIONS: 1. Continue nocturnal Pap therapy per home regimen. 2. Continue primary medical and balloon pump management per cardiology recommendations. 3. Encourage incentive parameter use while in bed. IMPRESSIONS: 1. Ischemic cardiomyopathy status post PTCA to RCA Continue current medical management per cardiology recommendations. Balloon pump augmentation and subsequent removal being managed by cardiology as well. 2. Obstructive sleep apnea The patient reports that he is on AutoPap therapy nightly and is being followed [facility]. Recommend initiation of nocturnal Pap therapy per home regimen. 3. Paroxysmal atrial fibrillation/obesity/hypertension/hyperlipidemia Complicates care, management, recovery and prognosis. Okay to discontinue supplemental IV fluids from my perspective. Therapy evaluation currently on hold until removal of balloon pump. This note was generated with [employer] dictation software. It may contain incorrect words, spelling, and punctuation that were not noted in checking the note before signing. Code Visit Inpatient E&M: 38146 Init Hosp L3
--- NOTE | 2019-04-11 07:47 | PN_ITS ---
Patient Problems: Active and Suspected Problems (Last Reviewed 04/10/19 @ 11:54 by Seema Jay DO) STEMI (ST elevation myocardial infarction) (Acute) Stented coronary artery (Acute 04/10/19) Segmented LV systolic dysfunction- Moderate; LVEF: by LV gram 45 %; Elevated Left Ventricular End Diastolic Pressure; Triple vessel CAD of the LM, LAD, LCX, RCA and PDA. Successful PTCA/PRADEEP distal RCA with a 3.0 x 16 Promus Synergy, post dilated with a 3.0 x 8 NC Balloon; 90%-->0%, no dissection or plaque shift into ostial PDA> Unable to cannulate PDA with multiple wires so no PCI of PDA performed. Will leave for CABG vs elective PCI in the future. Subjective: T-max 99.5. Current 98.6. Blood pressures did improve following fluid boluses last evening. Current blood pressure is 126/52. Heart rate is within normal limits. Pulse ox ranges from 91% to 96% on room air. Fluid balance is +3775 since admission. All lab and imaging was personally reviewed. Platelets are low at 94,000, down from 117,000 at admission. BMP is unremarkable. BUN is 14 with a creatinine of 0.78. Total bilirubin is mildly increased at 1.3, AST is 261 and the ALT is 56. Alkaline phosphatase is normal. The second troponin was 52.8. Chest x-ray today shows increased pulmonary vascular congestion. Denies CP, SOB, Nausea, pain RLE. He is c/o a congested nose - takes Claritin as an OP. No cough. Telemetry shows NSR with NSVT and brief runs of a wide complex irregular rhythm - Physical Exam General: Alert, Oriented x3, Cooperative, No apparent distress HEENT: PERRLA, EOMI Oral: Moist Mucosa Neck: Supple, No JVD, Trachea Midline Lungs: Clear to auscultation - anterior and lateral, No rhonchi, No wheeze, No rales Cardiovascular: Regular rate, Regular Rhythm, No murmurs, No rub noted, No Gallop, - - balloon pump still in place......see the subjective for telem Abdomen: Bowel Sounds Present, Soft, Non Tender, Non-Distended Extremities: Diminished Peripheral Pulses - The DP is decreased BL but the PT pulses are 3/3, Edema - trace edema of the ankles. Skin: No rashes, No breakdown Neurological: Cranial nerves II-XII grossly intact, Neuro grossly intact, - - the right foot is warm and has intact sensation Vital Signs Temp Pulse Resp BP Pulse Ox 98.6 F 73 18 110/60 96 04/11/19 07:00 04/11/19 07:00 04/11/19 07:00 04/11/19 07:00 04/11/19 07:00 Oxygen Flow Rate (L/min) 1 Oxygen Delivery Method Room Air Weight: 255 lb Body Mass Index (BMI) 32.7 Intake and Output for Last 24 Hours 04/09/19 04/10/19 04/11/19 23:59 23:59 23:59 Intake Total 3872.0 / 4076.3 1342.1 / 1342.1 Output Total 1048 / 1091 391 / 391 Balance 2824.0 / 2985.3 951.1 / 951.1 Laboratory Tests Past 24 Hrs 04/10/19 04/10/19 04/10/19 08:24 08:24 08:24 WBC 11.9 H RBC 5.46 Hgb 16.8 H Hct 47.2 MCV 86.4 MCH 30.8 MCHC 35.6 RDW 13.3 RDW Differential 41.6 Plt Count 117 L MPV 11.7 Immature Gran % (Auto) 0.300 Neut % (Auto) 74.5 H Lymph % (Auto) 18.0 L [place] % (Auto) 6.7 Eos % (Auto) 0.3 Baso % (Auto) 0.2 Absolute Neuts (auto) 8.9 H Absolute Lymphs (auto) 2.14 Total Counted Not Reportable PT Cancelled INR Cancelled APTT Cancelled Activated Clotting Time Sodium 142 Potassium 4.9 Chloride 109 H Carbon Dioxide 22.0 Anion Gap 11 BUN 15 Creatinine 0.94 Estim Creat Clear Calc 82.59 Est GFR (MDRD) Af Amer 102 Est GFR (MDRD) Non-Af 84 BUN/Creatinine Ratio 16.0 Glucose 126 H Calcium 9.5 Magnesium Total Bilirubin AST ALT Alkaline Phosphatase Troponin I 8.280 H* Total Protein Albumin Globulin Albumin/Globulin Ratio Triglycerides Cholesterol LDL Cholesterol VLDL Cholesterol HDL Cholesterol 04/10/19 04/10/19 04/10/19 08:35 09:24 12:00 WBC RBC Hgb Hct MCV MCH MCHC RDW RDW Differential Plt Count MPV Immature Gran % (Auto) Neut % (Auto) Lymph % (Auto) [place] % (Auto) Eos % (Auto) Baso % (Auto) Absolute Neuts (auto) Absolute Lymphs (auto) Total Counted PT 16.0 H INR 1.3 APTT 145.8 H* Activated Clotting Time 213 H 224 H Sodium Potassium Chloride Carbon Dioxide Anion Gap BUN Creatinine Estim Creat Clear Calc Est GFR (MDRD) Af Amer Est GFR (MDRD) Non-Af BUN/Creatinine Ratio Glucose Calcium Magnesium Total Bilirubin AST ALT Alkaline Phosphatase Troponin I Total Protein Albumin Globulin Albumin/Globulin Ratio Triglycerides Cholesterol LDL Cholesterol VLDL Cholesterol HDL Cholesterol 04/10/19 04/10/19 04/10/19 14:15 16:15 18:10 WBC RBC Hgb Hct MCV MCH MCHC RDW RDW Differential Plt Count MPV Immature Gran % (Auto) Neut % (Auto) Lymph % (Auto) [place] % (Auto) Eos % (Auto) Baso % (Auto) Absolute Neuts (auto) Absolute Lymphs (auto) Total Counted PT INR APTT 40.0 H Activated Clotting Time Sodium 143 Potassium 3.3 L Chloride 112 H Carbon Dioxide 23.0 Anion Gap 8 BUN 12 Creatinine 0.70 Estim Creat Clear Calc 77.63 Est GFR (MDRD) Af Amer 142 Est GFR (MDRD) Non-Af 117 BUN/Creatinine Ratio 17.1 Glucose 101 Calcium 8.2 L Magnesium 1.9 Total Bilirubin AST ALT Alkaline Phosphatase Troponin I 52.800 H* Total Protein Albumin Globulin Albumin/Globulin Ratio Triglycerides Cholesterol LDL Cholesterol VLDL Cholesterol HDL Cholesterol 04/11/19 04/11/19 04/11/19 01:48 04:00 04:00 WBC 8.5 RBC 4.57 L Hgb 13.8 Hct 39.5 L MCV 86.4 MCH 30.2 MCHC 34.9 RDW 13.4 RDW Differential 41.6 Plt Count 94 L MPV 11.7 Immature Gran % (Auto) Neut % (Auto) Lymph % (Auto) [place] % (Auto) Eos % (Auto) Baso % (Auto) Absolute Neuts (auto) Absolute Lymphs (auto) Total Counted PT INR APTT 40.0 H Activated Clotting Time Sodium 145 Potassium 3.8 Chloride 115 H Carbon Dioxide 23.0 Anion Gap 7 BUN 14 Creatinine 0.78 Estim Creat Clear Calc 77.63 Est GFR (MDRD) Af Amer 127 Est GFR (MDRD) Non-Af 105 BUN/Creatinine Ratio 18.1 Glucose 100 Calcium 7.8 L Magnesium Total Bilirubin 1.30 H AST 261 H ALT 56 Alkaline Phosphatase 36 L Troponin I Total Protein 5.6 L Albumin 2.8 L Globulin 2.8 Albumin/Globulin Ratio 1.0 Triglycerides 95 Cholesterol 123 LDL Cholesterol 74 VLDL Cholesterol 19 HDL Cholesterol 30 L POC Glucose 04/10/19 04/10/19 21:17 15:31 POC Glucose 98 83 Medical Necessity - Tobacco Use Smoking Status: Never smoker Tobacco Use: Non-smoker Assessment/Plan All Active Problems (Last Reviewed 04/10/19 @ 11:54 by Seema Jay DO) STEMI (ST elevation myocardial infarction) (Acute) Stented coronary artery (Acute 04/10/19) Impressions 1. STEMI 2. Triple-vessel coronary artery disease with PTCA/PRADEEP of the RCA 3. Ischemic cardiomyopathy with a 45% EF estimated on left ventriculogram 4. Hyperlipidemia 5. Hypertension 6. Nephrolithiasis-x1 remotely 7. Obesity 8. Paroxysmal atrial fibrillation 9. Chronic anticoagulation with apixaban 10. Intermittent right bundle branch block 11. NSVT Currently being maintained on a balloon pump at 1:1 On a continuous heparin infusion 2 antiplatelet drugs for a year-currently on aspirin and Brilinta Metoprolol 12.5 mg p.o. twice daily Lisinopril 2.5 mg p.o. daily Atorvastatin 80 mg p.o. nightly. Patient has been on a lipid-lowering agent in the past and does not recall the name. He stated it was stopped because of joint and muscle pain.....LDL is only 74 so will discuss with cardiology if the dose of the atorvastatin can be decreased Will need a CABG going forward in about [address] Pantoja will be contacting his doctor at [facility] to make arrangements Keep flat in bed as long as the balloon pump is in place. D/W Dr. Pantoja - will remove the balloon pump in the AM Code Visit Inpatient E&M: 69654 Subs Hosp L3
[2019-04-11] MEDS: Aspirin E.C. 81 MG Tablet PO (08:21)
[2019-04-11] MEDS: Magnesium Oxide 400 MG Tablet PO (08:21)
[2019-04-11 08:27] LABS: Magnesium 2.1 mg/dL (1.6-2.6); Phosphorus 2.2 mg/dL (2.5-4.9)
--- NOTE | 2019-04-11 09:02 | PN.CARD_ITS ---
Subjectve: Patient doing much better this morning, no 24-hour events. Telemetry showed normal sinus rhythm with episodes of nonsustained ventricular tachycardia, and rare junctional escape rhythm. EKG this morning shows normal sinus rhythm with inferior wall myocardial infarction. Hemoglobin and creatinine are within normal limits. Right groin is clean/dry/intact without evidence of hematoma, bruits. He has 2+ DP PT pulses bilaterally with balloon pump in standby mode. Peak troponin of 53. Objective: Vital Signs Temp Pulse Resp BP Pulse Ox 98.6 F 73 18 110/60 96 04/11/19 07:00 04/11/19 07:00 04/11/19 07:00 04/11/19 07:00 04/11/19 07:00 Oxygen Flow Rate (L/min) 1 Oxygen Delivery Method Room Air Weight: 213 lb 2.992 oz Body Mass Index (BMI) 32.7 Intake and Output for Last 24 Hours 04/09/19 04/10/19 04/11/19 23:59 23:59 23:59 Intake Total 3872.0 / 4076.3 1342.1 / 1342.1 Output Total 1048 / 1091 446 / 446 Balance 2824.0 / 2985.3 896.1 / 896.1 General: Awake, Alert, Oriented x 3 HEENT: PERRL, EOMI, Sclera Non Icteric Neck: Supple, Good ROM, No Lymph Node Enlargement Lungs: Clear to auscultation Cardiovascular: Regular Rhythm, Normal S1, Normal S2, No Murmurs, No Rubs, No Gallops Vascular: No Carotid Bruits, Normal Femoral Pulses, Normal Radial Pulses, Normal Dorsalis Pedal Pulse, Normal Posterior Tibial Pulses Abdomen: Bowel Sounds Present, Soft, Non Tender, No HSM, No Organomegaly Extremities: No Cyanosis, No Clubbing, No edema Neurological: No Focal Motor or Sensory Deficit 04/10/19 08:24: PT Cancelled, INR Cancelled, APTT Cancelled 04/10/19 12:00: PT 16.0 H, INR 1.3, APTT 145.8 H* 04/10/19 14:15: Troponin I 52.800 H* 04/10/19 16:15: Sodium 143, Potassium 3.3 L, Chloride 112 H, Carbon Dioxide 23.0, Anion Gap 8, BUN 12, Creatinine 0.70, Est GFR (MDRD) Af Amer 142, Est GFR (MDRD) Non-Af 117, BUN/Creatinine Ratio 17.1, Glucose 101, Calcium 8.2 L, Magnesium 1.9 04/10/19 18:10: APTT 40.0 H 04/11/19 01:48: APTT 40.0 H 04/11/19 04:00: WBC 8.5, RBC 4.57 L, Hgb 13.8, Hct 39.5 L, MCV 86.4, MCH 30.2, MCHC 34.9, RDW 13.4, RDW Differential 41.6, Plt Count 94 L, MPV 11.7 04/11/19 04:00: Sodium 145, Potassium 3.8, Chloride 115 H, Carbon Dioxide 23.0, Anion Gap 7, BUN 14, Creatinine 0.78, Est GFR (MDRD) Af Amer 127, Est GFR (MDRD) Non-Af 105, BUN/Creatinine Ratio 18.1, Glucose 100, Calcium 7.8 L, Total Bilirubin 1.30 H, Triglycerides 95, Cholesterol 123, LDL Cholesterol 74, VLDL Cholesterol 19, HDL Cholesterol 30 L 04/11/19 04:00: Phosphorus 2.2 L, Magnesium 2.1 Rhythm: EKG: ECHO: Relatively intact LV function with an EF around 50% with mild inferior hypokinesis. Normal RVSP Stress Test: Cardiac Cath: PCI: CT Surgery: Holter monitor: EPS: PPM: CXR: Chest CT Scan: Medical Necessity - Tobacco Use Smoking Status: Never smoker Tobacco Use: Non-smoker Assessment/Plan 1. Acute inferior/posterior wall myocardial infarction: The patient underwent emergent left her catheterization, and angioplasty and drug-eluting stenting to his distal right coronary artery segue into his posterior lateral branch due to subtotal occlusion. We were unable to cannulate his PDA which has a long di ffusely diseased complex lesion, but may be an adequate touchdown site distally for bypass surgery. In addition he was found to have significant left main disease, LAD disease, and diagonal disease which will require elective bypass surgery in the near future. Patient is intubated balloon pump is been in for less than 24 hours, I would recommend continuing 1 more day given his troponin surgeon and LV dysfunction. He is doing much better from a hemodynamic standpoint with his balloon pump. Recommend continuing baby aspirin for life, and Brilinta for at least 2 to 3 months time prior to elective bypass surgery. We will review the options for bypass surgery either at the [facility] given the patient's [facility] status, or an outside facility subjective [facility]. I would allow at least 1 to 2 months time of healing for his acute myocardial infarction as well as his drug-eluting stent. The drug-eluting component should be absorbed within 90 days time. 2. LV dysfunction: The patient's echocardiogram shows relatively intact LV function with an EF around 50% with mild inferior hypokinesis. Hopefully this will improve with medical therapy, revascularization, and healing. Continue beta-felicitas and JOVANY inhibitor therapy. 3. Hyperlipidemia: The patient's LDL cholesterol is a 4 and HDL is 30. Continue Lipitor therapy. 4. Obstructive sleep apnea: Patient has known obstructive sleep apnea and recommend continuing CPAP therapy. 5. Intrinsic balloon pump: We will continue the intra-balloon pump for 1 more day, and remove it tomorrow morning. We will hold his heparin at around 6 AM tomorrow, obtain an ACT at 8 AM, and plan for removal tomorrow morning. To new heparin drip to keep his PTT between 50?70. 6. D/w Dr Jay. Thank you very much for the opportunity to participate in the cardiac care of your patient. Code Visit Inpatient E&M: 21745 Subs Hosp L2
[2019-04-11 09:13] LABS: Partial Thromboplast Time 49.8 Seconds (24.1-36.2)
--- NOTE | 2019-04-11 10:00 | EKG12_ITS ---
Test Reason : Blood Pressure : / mmHG Vent. Rate : 083 BPM Atrial Rate : 072 BPM P-R Int : 158 ms QRS Dur : 112 ms QT Int : 444 ms P-R-T Axes : 074 -30 052 degrees QTc Int : 521 ms Sinus rhythm with occasional and consecutive Premature ventricular complexes and Fusion complexes Left axis deviation Inferior infarct , age undetermined Prolonged QT Abnormal ECG When compared with ECG of 10-APR-2019 10:13, MANUAL COMPARISON REQUIRED, DATA IS UNCONFIRMED Confirmed by EYAD ABEL, FELICITA ([id number]), editor farm journal NICK MAYER ([id number]) on 04/18/2019 7:12:01 AM Referred By: Johnny Pantoja Confirmed By:SARAH CASTANO MD
[2019-04-11] MEDS: Loratadine 10 MG Tablet PO (10:22)
--- NOTE | 2019-04-11 10:25 | CASEMGMT ---
RN CM Assessment Presentation: PTCA distal RCA, no PCI of PDA- possible CABG vs elective PCI in future. Intro role of CM and purpose of RN CM assessment to patient and his in room. Demographics, PCP and Pharmacy verified. Pt has been independent and denies any care needs @ home. Lengthy conversation with RN CM re: VA benefits, possible transfer if medically stable or staying @ [facility] under [employer] PPO. Pt and are undecided and declined signing [facility] Declination to transfer form. Would like billing to go to [facility]. -Call to transfer Center to notify of admission..Clinicals faxed to . -Pt states he may need CABG in future and is considering having @ [facility] instead of [facility]. Insurance look up for [employer] PPO- [facility] is [employer]. Pt and will speak with re: referral for Cardiothoracic surgery @ [facility]. Nurse Erinn also updated. -[employer] PPO facilities: [facility], [facility], [facility]. PCP: [facility] Specialists: Dr. Pantoja Preferred Pharmacy: [facility] Insurance: VA Medical Benefits and [employer] MCR PPO Prescription Benefit: yes through VA LNOK: , Carolyn Lazo Living Arrangements: Lives independently in own home. No care needs. Transportation: drives or can drive DME: none HHC: none Patient DC goals: Home DC PLAN: Home with family support and f/u with cardiothoracic surgeon. Shelley CABRERA RN ACM
[2019-04-11] MEDS: 0.9% Normal Saline 1,000 ML 50 ML IV (11:30)
[2019-04-11] MEDS: TICAGRELOR 90 MG TABLET PO ×2 (11:36→21:05)
[2019-04-11] MEDS: Metoprolol Tartrate 25 MG Tablet 12.5 MG PO ×2 (11:37→21:05)
--- NOTE | 2019-04-11 13:18 | CHAPLAIN ---
Type of Pastoral Visit _x__ Initial Visit ___ Follow-up Visit ___ On-call Visit ___ General Patient Visit ___ Spiritual Assessment ___ Family Conference ___ Bereavement ___ Rapid Response ___ Code Blue ___ Other (describe below) Pastoral Care Referral From _x__ Patient _x__ Family _x__ Nurse ___ Physician ___ Stitch Welder ___ Coagulating Operator ___ Other (describe below) Sacrament/Intervention _x__ Active listening ___ Anointing ___ Quaker ___ Bereavement ___ Communion _x__ Stephani exploration ___ _x__ Life review _x__ Prayer ___ Reconciliation ___ Sacrament of Sick _x__ Supportive presence ___ Wedding ___ Other (describe below) Pastoral Comments
--- NOTE | 2019-04-11 13:44 | CASEMGMT ---
NATHONY CM Note: call received from Rose Mary @ [place]. . Requested clinicals be faxed to [phone]. Shelley RAMIREZN RN ACM
--- NOTE | 2019-04-11 13:48 | CASEMGMT ---
ANTHONY CM Note: call received from Rose Mary @ [place]. [phone]. Requested clinicals be faxed to [phone]. Shelley CABRERA RN ACM
[2019-04-11] MEDS: HEPARIN/D5w 25,000 UNITS 25,000 UNITS/250 ML IV.SOLN. 10 UNITS IV (14:03)
[2019-04-11] MEDS: Lisinopril 2.5 MG Tablet PO (15:53)
[2019-04-11 16:28] LABS: Partial Thromboplast Time 50.6 Seconds (24.1-36.2)
[2019-04-11] MEDS: Atorvastatin Calcium 80 MG Tablet PO (21:05)
[2019-04-11] MEDS: cycloBENZAPRine HCl 5 MG TABLET PO (22:02)
[2019-04-11 23:45] LABS: Partial Thromboplast Time 48.2 Seconds (24.1-36.2)
[2019-04-12] VITALS (46 sets, daily range): BP systolic 87–142; BP diastolic 47–107; PULSE 63–111; RESP 11–23; TEMP 37.2–37.8; O2SAT 91–99; BMI 32.7
[2019-04-12] MEDS: Zolpidem Tartrate 5 MG Tablet 10 MG PO (00:11)
[2019-04-12] MEDS: Metoprolol Tartrate 25 MG Tablet 12.5 MG PO (00:57)
[2019-04-12] MEDS: LORazepam 1 MG Tablet PO (02:10)
--- NOTE | 2019-04-12 04:36 | RAD_ITS ---
HISTORY: verify balloon position EXAM: XR Chest 1 View COMPARISON: None FINDINGS: LINES/DEVICES: The able will portion of the intra-aortic balloon pump is superimposed over the aortic arch LUNGS: There are chronic interstitial changes. No pneumothorax. No consolidation or effusion. MEDIASTINUM AND CARDIOVASCULAR STRUCTURES: Cardiac silhouette not enlarged. Central airways and mediastinal contour are unremarkable. Athersclerotic plaque within the aortic arch. BONES AND SOFT TISSUES: Thoracic spondylosis. RAD/Chest 1 View (Portable) IMPRESSION: Chronic interestitial changes. No radiographic evidence of acute cardiopulmonary disease. Tip of intra-aortic balloon pump is present superimposed over the aortic arch at 9396 Reported and signed by: Juan Peters MD Electronically Signed: Juan Peters MD at 5:26 EDT Tel , Service support ,
[2019-04-12 06:41] LABS: Absolute Lymphocyte Count 1.52 X10^3/ul (0.83-4.51); Absolute Neutrophil Count 6.6 X10^3/uL (2.0-7.7); Basophil# 0.01 X10^3/uL; Basophil% 0.1 % (0-1); Eosinophil# 0.12 X10^3/uL; Eosinophils% 1.3 % (0-5); Hematocrit 42.8 % (40-54); Hemoglobin 15.2 g/dl (13.0-16.5); Lymphocyte # 1.52 X10^3/ul (4.0); Lymphocyte % 16.9 % (19-41); Mean Corp Hgb Conc 35.5 g/gl (32-36); Mean Corpuscular Hgb 30.1 pg (27.0-32.0); Mean Corpuscular Volume 84.8 fL (80-94); Monocyte# 0.74 X10^3/uL; Monocyte% 8.2 % (0-10); Neutrophil # 6.57 X10^3/uL (2.7-7.7); Neutrophil % 73.2 % (47-70); Platelet Count 95 K/mm3 (150-450); RBC Distribution Width CV 13.1 % (11.6-14.6); RBC Distribution Width SD 40.1 fl (35.1-43.9); Red Blood Count 5.05 M/mm3 (4.6-6.2)
--- NOTE | 2019-04-12 06:41 | PCM.PN.INT ---
Subjective: The patient was seen and examined at the bedside this morning. Events from the last 24 hours have been reviewed. The patient is currently afebrile, hemodynamically stable and maintaining appropriate oxygen saturations on room air. Nursing staff did report that the patient went into atrial fibrillation last night. The patient was also noted to be extremely anxious overnight. He only wore his nocturnal PAP therapy for a short amount of time. Objective: The patient's most recent lab work, culture data and imaging studies have all been personally reviewed. General: Alert, Oriented x3, Cooperative, No apparent distress HEENT: Atraumatic, PERRLA, Normocephalic Oral: Moist Mucosa Neck: Supple, No Nodes, Trachea Midline Lungs: No rhonchi, No wheeze, No rales, Diminished Cardiovascular: Normal S1, Normal S2, No murmurs, Irregular Rate Abdomen: Bowel Sounds Present, Soft, Non Tender, Obese Extremities: No clubbing, No cyanosis, No edema Skin: No breakdown Musculoskeletal: No Tenderness to Palpation of Joints or Extremities Lymphatic: No Cervical, Supraclavicular, or Inguinal Adenopathy Neurological: Cranial nerves II-XII grossly intact, Neuro grossly intact Psych/Mental Status: Alert and oriented to time, place, person, mood and affect Vital Signs Temp Pulse Resp BP Pulse Ox 99.3 F H 89 17 96/80 98 04/12/19 06:00 04/12/19 06:00 04/12/19 06:00 04/12/19 06:00 04/12/19 06:00 Oxygen Flow Rate (L/min) 1 Oxygen Delivery Method Room Air Weight: 263 lb 10.766 oz Body Mass Index (BMI) 32.7 Intake and Output for Last 24 Hours 04/10/19 04/11/19 04/12/19 23:59 23:59 23:59 Intake Total 3872.0 / 4076.3 3619.1 / 4393.1 1199 / 1199 Output Total 1048 / 1091 1966 / 2141 1750 / 1750 Balance 2824.0 / 2985.3 1653.1 / 2252.1 -551 / -551 Labs (Last 48 Hours) 04/10/19 04/10/19 04/10/19 08:24 08:24 08:24 WBC 11.9 H RBC 5.46 Hgb 16.8 H Hct 47.2 MCV 86.4 MCH 30.8 MCHC 35.6 RDW 13.3 RDW Differential 41.6 Plt Count 117 L MPV 11.7 Immature Gran % (Auto) 0.300 Neut % (Auto) 74.5 H Lymph % (Auto) 18.0 L Brooks % (Auto) 6.7 Eos % (Auto) 0.3 Baso % (Auto) 0.2 Absolute Neuts (auto) 8.9 H Absolute Lymphs (auto) 2.14 Total Counted Not Reportable PT Cancelled INR Cancelled APTT Cancelled Activated Clotting Time Sodium 142 Potassium 4.9 Chloride 109 H Carbon Dioxide 22.0 Anion Gap 11 BUN 15 Creatinine 0.94 Estim Creat Clear Calc 82.59 Est GFR (MDRD) Af Amer 102 Est GFR (MDRD) Non-Af 84 BUN/Creatinine Ratio 16.0 Glucose 126 H Calcium 9.5 Phosphorus Magnesium Total Bilirubin AST ALT Alkaline Phosphatase Troponin I 8.280 H* Total Protein Albumin Globulin Albumin/Globulin Ratio Triglycerides Cholesterol LDL Cholesterol VLDL Cholesterol HDL Cholesterol POC Glucose 04/10/19 04/10/19 04/10/19 08:35 09:24 12:00 WBC RBC Hgb Hct MCV MCH MCHC RDW RDW Differential Plt Count MPV Immature Gran % (Auto) Neut % (Auto) Lymph % (Auto) Brooks % (Auto) Eos % (Auto) Baso % (Auto) Absolute Neuts (auto) Absolute Lymphs (auto) Total Counted PT 16.0 H INR 1.3 APTT 145.8 H* Activated Clotting Time 213 H 224 H Sodium Potassium Chloride Carbon Dioxide Anion Gap BUN Creatinine Estim Creat Clear Calc Est GFR (MDRD) Af Amer Est GFR (MDRD) Non-Af BUN/Creatinine Ratio Glucose Calcium Phosphorus Magnesium Total Bilirubin AST ALT Alkaline Phosphatase Troponin I Total Protein Albumin Globulin Albumin/Globulin Ratio Triglycerides Cholesterol LDL Cholesterol VLDL Cholesterol HDL Cholesterol POC Glucose 04/10/19 04/10/19 04/10/19 14:15 15:31 16:15 WBC RBC Hgb Hct MCV MCH MCHC RDW RDW Differential Plt Count MPV Immature Gran % (Auto) Neut % (Auto) Lymph % (Auto) Brooks % (Auto) Eos % (Auto) Baso % (Auto) Absolute Neuts (auto) Absolute Lymphs (auto) Total Counted PT INR APTT Activated Clotting Time Sodium 143 Potassium 3.3 L Chloride 112 H Carbon Dioxide 23.0 Anion Gap 8 BUN 12 Creatinine 0.70 Estim Creat Clear Calc 77.63 Est GFR (MDRD) Af Amer 142 Est GFR (MDRD) Non-Af 117 BUN/Creatinine Ratio 17.1 Glucose 101 Calcium 8.2 L Phosphorus Magnesium 1.9 Total Bilirubin AST ALT Alkaline Phosphatase Troponin I 52.800 H* Total Protein Albumin Globulin Albumin/Globulin Ratio Triglycerides Cholesterol LDL Cholesterol VLDL Cholesterol HDL Cholesterol POC Glucose 83 04/10/19 04/10/19 04/11/19 18:10 21:17 01:48 WBC RBC Hgb Hct MCV MCH MCHC RDW RDW Differential Plt Count MPV Immature Gran % (Auto) Neut % (Auto) Lymph % (Auto) Brooks % (Auto) Eos % (Auto) Baso % (Auto) Absolute Neuts (auto) Absolute Lymphs (auto) Total Counted PT INR APTT 40.0 H 40.0 H Activated Clotting Time Sodium Potassium Chloride Carbon Dioxide Anion Gap BUN Creatinine Estim Creat Clear Calc Est GFR (MDRD) Af Amer Est GFR (MDRD) Non-Af BUN/Creatinine Ratio Glucose Calcium Phosphorus Magnesium Total Bilirubin AST ALT Alkaline Phosphatase Troponin I Total Protein Albumin Globulin Albumin/Globulin Ratio Triglycerides Cholesterol LDL Cholesterol VLDL Cholesterol HDL Cholesterol POC Glucose 98 04/11/19 04/11/19 04/11/19 04:00 04:00 04:00 WBC 8.5 RBC 4.57 L Hgb 13.8 Hct 39.5 L MCV 86.4 MCH 30.2 MCHC 34.9 RDW 13.4 RDW Differential 41.6 Plt Count 94 L MPV 11.7 Immature Gran % (Auto) Neut % (Auto) Lymph % (Auto) Brooks % (Auto) Eos % (Auto) Baso % (Auto) Absolute Neuts (auto) Absolute Lymphs (auto) Total Counted PT INR APTT Activated Clotting Time Sodium 145 Potassium 3.8 Chloride 115 H Carbon Dioxide 23.0 Anion Gap 7 BUN 14 Creatinine 0.78 Estim Creat Clear Calc 77.63 Est GFR (MDRD) Af Amer 127 Est GFR (MDRD) Non-Af 105 BUN/Creatinine Ratio 18.1 Glucose 100 Calcium 7.8 L Phosphorus 2.2 L Magnesium 2.1 Total Bilirubin 1.30 H AST 261 H ALT 56 Alkaline Phosphatase 36 L Troponin I Total Protein 5.6 L Albumin 2.8 L Globulin 2.8 Albumin/Globulin Ratio 1.0 Triglycerides 95 Cholesterol 123 LDL Cholesterol 74 VLDL Cholesterol 19 HDL Cholesterol 30 L POC Glucose 04/11/19 04/11/19 04/11/19 08:55 16:00 23:10 WBC RBC Hgb Hct MCV MCH MCHC RDW RDW Differential Plt Count MPV Immature Gran % (Auto) Neut % (Auto) Lymph % (Auto) Brooks % (Auto) Eos % (Auto) Baso % (Auto) Absolute Neuts (auto) Absolute Lymphs (auto) Total Counted PT INR APTT 49.8 H 50.6 H 48.2 H Activated Clotting Time Sodium Potassium Chloride Carbon Dioxide Anion Gap BUN Creatinine Estim Creat Clear Calc Est GFR (MDRD) Af Amer Est GFR (MDRD) Non-Af BUN/Creatinine Ratio Glucose Calcium Phosphorus Magnesium Total Bilirubin AST ALT Alkaline Phosphatase Troponin I Total Protein Albumin Globulin Albumin/Globulin Ratio Triglycerides Cholesterol LDL Cholesterol VLDL Cholesterol HDL Cholesterol POC Glucose 04/12/19 04/12/19 06:20 06:20 WBC Pending RBC Pending Hgb Pending Hct Pending MCV Pending MCH Pending MCHC Pending RDW Pending RDW Differential Pending Plt Count Pending MPV Immature Gran % (Auto) Neut % (Auto) Pending Lymph % (Auto) Brooks % (Auto) Eos % (Auto) Baso % (Auto) Absolute Neuts (auto) Pending Absolute Lymphs (auto) Total Counted Pending PT INR APTT Activated Clotting Time Sodium Pending Potassium Pending Chloride Pending Carbon Dioxide Pending Anion Gap Pending BUN Pending Creatinine Pending Estim Creat Clear Calc Est GFR (MDRD) Af Amer Pending Est GFR (MDRD) Non-Af Pending BUN/Creatinine Ratio Pending Glucose Pending Calcium Pending Phosphorus Magnesium Total Bilirubin Pending AST Pending ALT Pending Alkaline Phosphatase Pending Troponin I Total Protein Pending Albumin Pending Globulin Albumin/Globulin Ratio Triglycerides Cholesterol LDL Cholesterol VLDL Cholesterol HDL Cholesterol POC Glucose Clinical Impression(s) from Imaging Studies Chest X-Ray 04/11/19 05:55 IMPRESSION: Intra-aortic balloon pump terminates at the level of the thoracic aortic arch. at 0500 Reported and signed by: Juan Peters MD Electronically Signed: Juan Peters MD at 4:59 EDT Tel , Service support , Chest X-Ray 04/12/19 04:36 IMPRESSION: Chronic interestitial changes. No radiographic evidence of acute cardiopulmonary disease. Tip of intra-aortic balloon pump is present superimposed over the aortic arch at 0527 Reported and signed by: Juan Peters MD Electronically Signed: Juan Peters MD at 5:26 EDT Tel , Service support , Medical Necessity - Tobacco Use Smoking Status: Never smoker Tobacco Use: Non-smoker Assessment/Plan All Active Problems (Last Reviewed 04/10/19 @ 11:54 by Seema Jay DO) STEMI (ST elevation myocardial infarction) (Acute) Stented coronary artery (Acute 04/10/19) RECOMMENDATIONS: 1. Continue nocturnal Pap therapy per home regimen. 2. Continue primary medical and balloon pump management per cardiology recommendations. 3. Encourage incentive parameter use while in bed. IMPRESSIONS: 1. Ischemic cardiomyopathy status post PTCA to RCA Continue current medical management per cardiology recommendations. Balloon pump augmentation and subsequent removal being managed by cardiology as well. 2. Obstructive sleep apnea The patient reports that he is on AutoPap therapy nightly and is being followed longitudinally through the [place] [facility]. Recommend initiation of nocturnal Pap therapy per home regimen. 3. Paroxysmal atrial fibrillation/obesity/hypertension/hyperlipidemia Complicates care, management, recovery and prognosis. Okay to discontinue supplemental IV fluids from my perspective. Therapy evaluation currently on hold until removal of balloon pump. This note was generated with Zipano[employer] software. It may contain incorrect words, spelling, and punctuation that were not noted in checking the note before signing.
[2019-04-12 06:42] LABS: POSITIVE COUNT NO; POSITIVE DIFFERENTIAL NO; POSITIVE MORPHOLOGY NO
[2019-04-12 06:49] LABS: ALB/GLOB Ratio 0.9 RATIO (0.9-2.4); AST(SGOT) 107 U/L (15-37); Alanine Aminotransfer ALT/SGPT 43 U/L (16-61); Albumin, Serum 2.9 g/dL (3.2-5.0); Alkaline Phosphatase 44 U/L (45-117); Anion Gap 9 (5-15); BUN 12 mg/dL (7-18); BUN/Creat Ratio 16.4 RATIO (10-20); Calcium,Total 8.4 mg/dL (8.5-10.1); Chloride 112 mmol/L (98-107); Creatinine, Serum 0.73 mg/dL (0.70-1.30); EST Glomerular Filtration Rate 112 mL/min (>60); Est Glom Filt Rate - Afr Amer 135 mL/min (>60); Estimated Creatinine Clearance 77.63 ml/min; Globulin 3.2 g/dL (2.2-4.2); Glucose 99 mg/dL (74-106); Potassium 3.6 mmol/L (3.5-5.1); Protein, Total 6.1 g/dL (6.4-8.2); Sodium Level 144 mmol/L (136-145)
[2019-04-12] MEDS: Metoprolol Tartrate 25 MG Tablet PO ×2 (08:05→21:13)
[2019-04-12] MEDS: Magnesium Oxide 400 MG Tablet PO (08:06)
[2019-04-12 08:15] LABS: ACT Activated Clotting Time 125 sec (74-137)
--- NOTE | 2019-04-12 08:51 | PCM.PROGNOTE ---
Patient Problems: Active and Suspected Problems (Last Reviewed 04/10/19 @ 11:54 by Seema Jay DO) STEMI (ST elevation myocardial infarction) (Acute) Stented coronary artery (Acute 04/10/19) Segmented LV systolic dysfunction- Moderate; LVEF: by LV gram 45 %; Elevated Left Ventricular End Diastolic Pressure; Triple vessel CAD of the LM, LAD, LCX, RCA and PDA. Successful PTCA/PRADEEP distal RCA with a 3.0 x 16 Promus Synergy, post dilated with a 3.0 x 8 NC Balloon; 90%-->0%, no dissection or plaque shift into ostial PDA> Unable to cannulate PDA with multiple wires so no PCI of PDA performed. Will leave for CABG vs elective PCI in the future. Subjective: Has been having some low-grade fevers and the T-max in the past 24 hours is 99.8. Vital signs are stable. Current blood pressure is 115/71. He is 94 to 96% saturated on room air. Fluid balance on 04/11/2019 was +1650. He had 2 L of urine output. He had an additional 2 L of urine output overnight and the fluid balance overnight was -714. All lab was personally reviewed. CBC is within normal limits. Differential is unremarkable. BMP shows potassium of 3.6. BUN is 12 with a creatinine of 0.73. Serum bilirubin is elevated at 1.7, AST is 107 and the ALT is 43. Alkaline phos is 44. Chest x-ray shows the balloon pump to be in good position. To me there appears to be some pulmonary vascular congestion. Flexeril did not help the back pain. He went into AF last night and is still in AF. Denies CP, SOB, nausea, abdominal pain, groin pain. Has not slept well for the past 3 nights. Got Ativan last night and became confused. Better today. Balloon pump to be discontinued today and when he is able to sit up and move around will DC the Steiner. - Physical Exam General: Alert, Oriented x3, Cooperative, - - he is frustarated at having to lay on his back and is anxious about the AF. Oral: Moist Mucosa Neck: Supple Lungs: Clear to auscultation, Diminished - laterally Cardiovascular: Normal S1, Normal S2, No murmurs, Irregular Rate - AF, No rub noted, No Gallop Abdomen: Bowel Sounds Present, Non Tender, Non-Distended Extremities: No edema, No Calf Tenderness, - - the right groin is soft and there is no hematoma. Skin: No rashes, No breakdown Neurological: Cranial nerves II-XII grossly intact, Neuro grossly intact Psych/Mental Status: Anxious Vital Signs Temp Pulse Resp BP Pulse Ox 99.3 F H 95 15 115/71 96 04/12/19 06:00 04/12/19 08:05 04/12/19 08:00 04/12/19 08:05 04/12/19 08:00 Oxygen Flow Rate (L/min) 1 Oxygen Delivery Method Room Air Weight: 263 lb 10.766 oz Body Mass Index (BMI) 32.7 Intake and Output for Last 24 Hours 04/10/19 04/11/19 04/12/19 23:59 23:59 23:59 Intake Total 3872.0 / 4076.3 3619.1 / 4393.1 1261 / 1261 Output Total 1048 / 1091 1965 / 2141 1974 / 1974 Balance 2824.0 / 2985.3 1653.1 / 2252.1 -714 / -714 Laboratory Tests Past 24 Hrs 04/11/19 04/11/19 04/11/19 08:55 16:00 23:10 WBC RBC Hgb Hct MCV MCH MCHC RDW RDW Differential Plt Count MPV Immature Gran % (Auto) Neut % (Auto) Lymph % (Auto) [place] % (Auto) Eos % (Auto) Baso % (Auto) Absolute Neuts (auto) Absolute Lymphs (auto) Total Counted APTT 49.8 H 50.6 H 48.2 H Activated Clotting Time Sodium Potassium Chloride Carbon Dioxide Anion Gap BUN Creatinine Estim Creat Clear Calc Est GFR (MDRD) Af Amer Est GFR (MDRD) Non-Af BUN/Creatinine Ratio Glucose Calcium Total Bilirubin AST ALT Alkaline Phosphatase Total Protein Albumin Globulin Albumin/Globulin Ratio 04/12/19 04/12/19 04/12/19 06:20 06:20 07:58 WBC 9.0 RBC 5.05 Hgb 15.2 Hct 42.8 MCV 84.8 MCH 30.1 MCHC 35.5 RDW 13.1 RDW Differential 40.1 Plt Count 95 L MPV 12.0 Immature Gran % (Auto) 0.300 Neut % (Auto) 73.2 H Lymph % (Auto) 16.9 L [place] % (Auto) 8.2 Eos % (Auto) 1.3 Baso % (Auto) 0.1 Absolute Neuts (auto) 6.6 Absolute Lymphs (auto) 1.52 Total Counted Not Reportable APTT Activated Clotting Time 125 Sodium 144 Potassium 3.6 Chloride 112 H Carbon Dioxide 23.0 Anion Gap 9 BUN 12 Creatinine 0.73 Estim Creat Clear Calc 77.63 Est GFR (MDRD) Af Amer 135 Est GFR (MDRD) Non-Af 112 BUN/Creatinine Ratio 16.4 Glucose 99 Calcium 8.4 L Total Bilirubin 1.70 H AST 107 H ALT 43 Alkaline Phosphatase 44 L Total Protein 6.1 L Albumin 2.9 L Globulin 3.2 Albumin/Globulin Ratio 0.9 Medical Necessity - Tobacco Use Smoking Status: Never smoker Tobacco Use: Non-smoker Assessment/Plan All Active Problems (Last Reviewed 04/10/19 @ 11:54 by Seema Jay DO) STEMI (ST elevation myocardial infarction) (Acute) Stented coronary artery (Acute 04/10/19) Impressions 1. STEMI 2. Triple-vessel coronary artery disease with PTCA/PRADEEP of the RCA 3. Ischemic cardiomyopathy with a 45% EF estimated on left ventriculogram 4. Hyperlipidemia 5. Hypertension 6. Nephrolithiasis-x1 remotely 7. Obesity 8. Paroxysmal atrial fibrillation 9. Chronic anticoagulation with apixaban 10. Intermittent right bundle branch block 11. NSVT 12. Paroxysmal atrial fibrillation 13. abnormal LFT's 14. Hypophosphatemia Balloon and steiner to be removed today supplement the potassium to keep it around 4 Keep the mag around 2 D/W Dr. Pantoja - considering amiodarone to get him back into NSR Recheck a BMP and a mag in the AM Maintain in the ICU today consider starting an SSRI - he is very anxious and the CABG will not happen for the next month check a direct and indirect bilirubin and an LDH Lopressor increased to 25 mg p.o. twice daily Check a direct and indirect bilirubin and an LDH. Supplement phosphorus Code Visit Inpatient E&M: 14568 Subs Hosp L3
[2019-04-12 09:42] LABS: BNP,B-Type NATRIURETIC PEPTIDE 311.4 pg/mL (0-100)
--- NOTE | 2019-04-12 09:48 | PN.CARD_ITS ---
Subjectve: Patient feeling better today, developed atrial fibrillation around 12:30 AM last evening. Patient has a history of paroxysmal atrial fibrillation and in fact was on Eliquis prior to his [place]. No chest pain symptoms. Hemodynamically stable. Amiodarone drip started this morning. Intrinsic balloon pump removed this morning without difficulty and direct manual pressure held for 30 minutes time. Hemoglobin and creatinine are within nominal limits. Objective: Vital Signs Temp Pulse Resp BP Pulse Ox 99.8 F H 83 11 L 87/72 L 96 04/12/19 08:51 04/12/19 08:51 04/12/19 08:51 04/12/19 08:51 04/12/19 08:51 Oxygen Flow Rate (L/min) 1 Oxygen Delivery Method Room Air Weight: 263 lb 10.766 oz Body Mass Index (BMI) 32.7 Intake and Output for Last 24 Hours 04/10/19 04/11/19 04/12/19 23:59 23:59 23:59 Intake Total 3872.0 / 4076.3 3619.1 / 4393.1 1261 / 1261 Output Total 1048 / 1091 1966 / 2141 2075 / 2075 Balance 2824.0 / 2985.3 1653.1 / 2252.1 -814 / -814 General: Awake, Alert, Oriented x 3 HEENT: PERRL, EOMI, Sclera Non Icteric Neck: Supple, Good ROM, No Lymph Node Enlargement Lungs: Clear to auscultation Cardiovascular: Irregular Rhythm, Normal S1, Normal S2, No Murmurs, No Rubs, No Gallops Vascular: No Carotid Bruits, Normal Femoral Pulses, Normal Radial Pulses, Normal Dorsalis Pedal Pulse, Normal Posterior Tibial Pulses Abdomen: Bowel Sounds Present, Soft, Non Tender, No HSM, No Organomegaly Extremities: No Cyanosis, No Clubbing, No edema Neurological: No Focal Motor or Sensory Deficit 04/11/19 16:00: APTT 50.6 H 04/11/19 23:10: APTT 48.2 H 04/12/19 06:20: WBC 9.0, RBC 5.05, Hgb 15.2, Hct 42.8, MCV 84.8, MCH 30.1, MCHC 35.5, RDW 13.1, RDW Differential 40.1, Plt Count 95 L, MPV 12.0, Immature Gran % (Auto) 0.300, Neut % (Auto) 73.2 H, Lymph % (Auto) 16.9 L, [place] % (Auto) 8.2, Eos % (Auto) 1.3, Baso % (Auto) 0.1, Absolute Neuts (auto) 6.6, Total Counted Not Reportable 04/12/19 06:20: Sodium 144, Potassium 3.6, Chloride 112 H, Carbon Dioxide 23.0, Anion Gap 9, BUN 12, Creatinine 0.73, Est GFR (MDRD) Af Amer 135, Est GFR (MDRD) Non-Af 112, BUN/Creatinine Ratio 16.4, Glucose 99, Calcium 8.4 L, Total Bilirubin 1.70 H 04/12/19 06:20: B-Natriuretic Peptide 311.4 H Rhythm: EKG: ECHO: Stress Test: Cardiac Cath: PCI: CT Surgery: Holter monitor: EPS: PPM: CXR: Chest CT Scan: Medical Necessity - Tobacco Use Smoking Status: Never smoker Tobacco Use: Non-smoker Assessment/Plan 1. Acute inferior/posterior wall myocardial infarction: The patient underwent emergent left her catheterization, and angioplasty and drug-eluting stenting to his distal right coronary artery segue into his posterior lateral branch due to subtotal occlusion. We were unable to cannulate his PDA which has a long diffusely diseased complex lesion, but may be an adequate touchdown site distally for bypass surgery. In addition he was found to have significant left main disease, LAD disease, and diagonal disease which will require elective bypass surgery in the near future. Patient remained hemodynamically stable although did develop atrial fibrillation last evening, but despite this I felt the intra-aortic balloon pump had been in an adequate amount of time, approximately 48 hours. Intra-aortic balloon pump removed this morning and direct manual pressure held for 30 minutes. We will hold off on starting anticoagulation, until his groin is healed. Would hold off on Eliquis therapy until he is for at least 5 days to allow for groin access healing. Recommend continuing baby aspirin for life, and Brilinta for at least 6 months time prior to elective bypass surgery. From our preliminary research it appears the patient may be a candidate for bypass surgery at [facility]. If this is the case I will call Dr. Bazzi to make arrangements for the patient to be seen as an outpatient. We will make arrangements for copies of his catheterization and echo films to be sent ahead of time. I would allow at least 1 to 2 months time of healing for his acute myocardial infarction as well as his drug-eluting stent. The drug-eluting component should be absorbed within 90 days time. 2. LV dysfunction: The patient's echocardiogram shows relatively intact LV function with an EF around 50% with mild inferior hypokinesis. Hopefully this will improve with medical therapy, revascularization, and healing. Continue beta-felicitas and JOVANY inhibitor therapy. 3. Hyperlipidemia: The patient's LDL cholesterol is a 4 and HDL is 30. Continue Lipitor therapy. 4. Obstructive sleep apnea: Patient has known obstructive sleep apnea and recommend continuing CPAP therapy. 5. Atrial fibrillation: The patient has a history of paroxysmal atrial fibrillation and developed this last evening. We will hold off on anticoagulation given the fact that we just removed his intrinsic balloon pump. Patient remained on heparin overnight during his atrial fibrillation. Would also recommend starting him on IV amiodarone per protocol and continuing p.o. amiodarone to avoid paroxysmal atrial fibrillation perioperatively. Hopefully he will can convert chemically. 6. D/w Dr Jay. Thank you very much for the opportunity to participate in the cardiac care of your patient. 7. Intra-aortic balloon pump: Balloon pump removed this morning and direct manual pressure held for 30 minutes time. Total time with patient approximately 45 minutes. No complications. Code Visit Inpatient E&M: 92305 [facility] Hosp L3
--- NOTE | 2019-04-12 10:00 | EKG12_ITS ---
Test Reason : Blood Pressure : / mmHG Vent. Rate : 079 BPM Atrial Rate : 088 BPM P-R Int : 000 ms QRS Dur : 130 ms QT Int : 458 ms P-R-T Axes : 000 270 079 degrees QTc Int : 525 ms Wide QRS rhythm ,probably Sinus Rhythm Left axis deviation Right bundle branch block Inferior infarct , age undetermined Anterior infarct , age undetermined Abnormal ECG When compared with ECG of 10-APR-2019 08:12, MANUAL COMPARISON REQUIRED, DATA IS UNCONFIRMED Confirmed by EYAD ABEL, FELICITA ([id number]), fan mail editor NICK MAYER ([id number]) on 04/18/2019 7:13:33 AM Referred By: Johnny Pantoja Confirmed By:SARAH CASTANO MD
[2019-04-12 10:19] LABS: Bilirubin, Direct 0.35 mg/dL (0.00-0.30); LDH 581 U/L (87-241)
[2019-04-12] MEDS: TICAGRELOR 90 MG TABLET PO ×2 (11:30→21:13)
[2019-04-12] MEDS: Aspirin E.C. 81 MG Tablet PO (11:30)
[2019-04-12] MEDS: Loratadine 10 MG Tablet PO (11:30)
[2019-04-12] MEDS: Lisinopril 2.5 MG Tablet PO (11:30)
[2019-04-12] MEDS: CHLORHEXIDINE GLUC 2% CLOTH 1 EACH TOWELETTE TOPICAL (11:31)
[2019-04-12 13:10] LABS: Bacteria 0 SEEN /hpf (None Seen); Mucous, Urine 0 SEEN /hpf (<or=2+); Squamous Epithelial Cells - UA 0 SEEN /hpf (0-5); White Blood Cells 0 SEEN /hpf (0-5)
[2019-04-12 13:26] LABS: Color, Urine Yellow (Yellow); Glucose, Dipstick Normal (Normal); Ketone-Dipstick Negative (Negative); Leukocyte Esterase-Dipstick Negative /ul (Negative); Nitrite-Dipstick Negative (Negative); Occult Blood-Urine 250 /ul (Negative); Protein-Dipstick Negative (Negative); Urine Bilirubin Dipstick Negative (Negative); Urine Clarity Clear (Clear); Urine Urobilinogen Normal (Normal)
[2019-04-12 13:44] LABS: Red Blood Cells-Urine 10-25 SEEN /hpf (0-5)
--- NOTE | 2019-04-12 15:00 | CRPHASE1_ITS ---
Patient Communication Former Patient:: Phase I PHII Cardiac Rehab Discussed with Patient:: Yes Guide to Cardiac Rehab Given to Patient:: Yes Cardiac Rehab Facility Choice List Given to Patient:: Yes - [facility] Choice Program [facility] CR PHII:: Communication Given to CR, Refer to [facility] Refer Phase II Cardiac Rehab:: Yes Sessions:: 36 sessions - 3 days/wk, 12 weeks Risk Factors/Lifestyle Smoking Status: Never smoker Hx Hypertension: Yes Hx Diabetes Mellitus Type 2: No Hx Obesity: Yes Height: 1.88 m Weight:: 115.7 kg BMI: 32.7 ETOH: No Caffeine: Yes Substance Abuse: No Risk Factor for Sedentary Lifestyle: Moderate Risk Family History: High Cholesterol, Hypertension Laboratory Values: Cardiac Rehab Phase I Labs Triglycerides 95 mg/dL (-199) 04/11/19 04:00 Cholesterol 123 mg/dL (200) 04/11/19 04:00 74 mg/dL (0-130) 04/11/19 04:00 30 mg/dL (40-) L 04/11/19 04:00 Phase I Education Given On:: [place], Nutrition, Antiplatelet medication Issues Affecting Care:: None Knowledge of Condition:: Yes Hospital Course Pain Description: Sharp, Crushing, Tightness Cardiac Cath Date:: 04/10/19 Medical/Surgical History NC:: Yes Angina:: Yes Hypertension:: Yes Dyslipidemia:: Yes Discharge/Home/Social Eval Discharge Disposition: Home Marital Status: - Cardiac Rehabilitation Info Cardiac Rehabilitation Program Information: Cardiac Rehabilitation is important for patients like you who are recovering from a heart problem. Cardiac rehabilitation programs are recognized as integral to the continued care of the patient with coronary heart disease. The cardiac rehabilitation program is designed to optimize a patient's physical, psychological, and social functioning. Health career placement services counselor work in cardiac rehabilitation programs and assist you with getting the treatments you need to get stronger and healthier - like exercise, healthy eating habits, and medications. Cardiac rehabilitation has been show to help people with heart problems live longer and have better life enjoyment than people who do not go to cardiac rehabilitation. Please contact the Cardiac Rehabilitation Program at [facility] at in two weeks if you have not heard from them.
--- NOTE | 2019-04-12 15:05 | CRPH1.INSTRU ---
General Education CAD and cardiac anatomy and function:: Patient communicates acknowledgment Explanation of diagnoses and procedures:: Patient communicates acknowledgment Sign/Symptoms of OK:: Patient communicates acknowledgment Antiplatelet therapy: Not instructed Proper use of NTG-SL: Not instructed Emergency procedures and activation of EMS: Patient returns demonstration Compliance of all prescribed medications: Not instructed Smoking Patient Nicotine/Smoking Risk Factors Are:: Non-smoker Dyslipidemia Patient Dyslipidemia Risk Factors Are:: Total Cholesterol Recommendations Include:: Lipid profile not available Overweight/Obesity Patient Overweight/Obesity Risk Factors Are:: Overweight = 26-29 Overweight/Obesity:: Patient communicates acknowledgment Hypertension Recommendations Include:: Maintain BP <130/85, Decrease/maintain normal body weight Hypertension:: Patient communicates acknowledgment Heart Disease Heart Disease Response Code:: Patient communicates acknowledgment Diabetes Patient Diabetes Risk Factors Are:: No documented hx of diabetes Metabolic Syndrome Metabolic Syndrome Response Code:: Patient communicates acknowledgment Sedentary Recommendations Include:: Discussed home walking program, Monitored Outpatient Cardiac Rehab Sedentary Response Code:: Patient communicates acknowledgment Stress Patient Stress Risk Factors Are:: Patient denies stress as a risk factor Stress Response Code:: Patient communicates acknowledgment
[2019-04-12] MEDS: Atorvastatin Calcium 80 MG Tablet PO (21:13)
[2019-04-13] VITALS (26 sets, daily range): BP systolic 96–156; BP diastolic 48–99; PULSE 61–87; RESP 12–32; TEMP 36.4–37.2; O2SAT 93–100
[2019-04-13 04:45] LABS: Anion Gap 9 (5-15); BUN 15 mg/dL (7-18); BUN/Creat Ratio 17.9 RATIO (10-20); Calcium,Total 8.3 mg/dL (8.5-10.1); Chloride 110 mmol/L (98-107); Creatinine, Serum 0.84 mg/dL (0.70-1.30); EST Glomerular Filtration Rate 96 mL/min (>60); Est Glom Filt Rate - Afr Amer 116 mL/min (>60); Estimated Creatinine Clearance 92.42 ml/min; Glucose 108 mg/dL (74-106); Magnesium 2.3 mg/dL (1.6-2.6); Potassium 3.7 mmol/L (3.5-5.1); Sodium Level 143 mmol/L (136-145)
--- NOTE | 2019-04-13 06:38 | PCM.PN.INT ---
Subjective: The patient was seen and examined at the bedside this morning. Events from the last 24 hours have been reviewed. The patient is currently afebrile, hemodynamically stable and maintaining appropriate oxygen saturations on room air. The patient has done well clinically following removal of his intra-aortic balloon pump yesterday. The patient is currently without complaints of shortness of breath or cough. Objective: The patient's most recent lab work, culture data and imaging studies have all been personally reviewed. Blood and urine cultures are pending. Surface echocardiogram dated April 10 revealed a mildly dilated LV with an ejection fraction of 50%. Right ventricular systolic pressure was estimated to be 32 mmHg. General: Alert, Cooperative, No apparent distress HEENT: Atraumatic, PERRLA, Normocephalic Oral: No Gingival or Mucosal Lesions/ Ulcerations Neck: Supple, No Nodes, Trachea Midline Lungs: Normal air movement, No rhonchi, No wheeze, No rales Cardiovascular: Regular rate, Regular Rhythm, Normal S1, Normal S2, No murmurs Abdomen: Bowel Sounds Present, Soft, Non Tender, Obese Extremities: No clubbing, No cyanosis, No edema Skin: No breakdown Musculoskeletal: No Muscle Wasting Lymphatic: No Cervical, Supraclavicular, or Inguinal Adenopathy Neurological: Neuro grossly intact Psych/Mental Status: Normal Affect, Appropriate Vital Signs Temp Pulse Resp BP Pulse Ox 98.5 F 64 18 155/98 H 100 04/13/19 06:00 04/13/19 06:00 04/13/19 06:00 04/13/19 06:00 04/13/19 06:00 Oxygen Flow Rate (L/min) 1 Oxygen Delivery Method Room Air Weight: 258 lb 13.163 oz Body Mass Index (BMI) 32.7 Intake and Output for Last 24 Hours 04/11/19 04/12/19 04/13/19 23:59 23:59 23:59 Intake Total 3619.1 / 4393.1 2438.5 / 2438.5 103 / 103 Output Total 1966 / 2141 2925 / 2925 550 / 550 Balance 1653.1 / 2252.1 -486.5 / -486.5 -447 / -447 Labs (Last 48 Hours) 04/11/19 04/11/19 04/11/19 04:00 08:55 16:00 WBC RBC Hgb Hct MCV MCH MCHC RDW RDW Differential Plt Count MPV Immature Gran % (Auto) Neut % (Auto) Lymph % (Auto) [place] % (Auto) Eos % (Auto) Baso % (Auto) Absolute Neuts (auto) Absolute Lymphs (auto) Total Counted APTT 49.8 H 50.6 H Activated Clotting Time Sodium Potassium Chloride Carbon Dioxide Anion Gap BUN Creatinine Estim Creat Clear Calc Est GFR (MDRD) Af Amer Est GFR (MDRD) Non-Af BUN/Creatinine Ratio Glucose Calcium Phosphorus 2.2 L Magnesium 2.1 Total Bilirubin Direct Bilirubin Indirect Bilirubin AST ALT Alkaline Phosphatase Lactate Dehydrogenase B-Natriuretic Peptide Total Protein Albumin Globulin Albumin/Globulin Ratio Urine Color Urine Clarity Urine pH Ur Specific [place] Urine Protein Urine Glucose (UA) Urine Ketones Urine Occult Blood Urine Nitrite Urine Bilirubin Urine Urobilinogen Ur Leukocyte Esterase Urine RBC Urine WBC Ur Squamous Epith Cells Urine Bacteria Urine Mucus 04/11/19 04/12/19 04/12/19 23:10 06:20 06:20 WBC 9.0 RBC 5.05 Hgb 15.2 Hct 42.8 MCV 84.8 MCH 30.1 MCHC 35.5 RDW 13.1 RDW Differential 40.1 Plt Count 95 L MPV 12.0 Immature Gran % (Auto) 0.300 Neut % (Auto) 73.2 H Lymph % (Auto) 16.9 L [place] % (Auto) 8.2 Eos % (Auto) 1.3 Baso % (Auto) 0.1 Absolute Neuts (auto) 6.6 Absolute Lymphs (auto) 1.52 Total Counted Not Reportable APTT 48.2 H Activated Clotting Time Sodium 144 Potassium 3.6 Chloride 112 H Carbon Dioxide 23.0 Anion Gap 9 BUN 12 Creatinine 0.73 Estim Creat Clear Calc 77.63 Est GFR (MDRD) Af Amer 135 Est GFR (MDRD) Non-Af 112 BUN/Creatinine Ratio 16.4 Glucose 99 Calcium 8.4 L Phosphorus Magnesium Total Bilirubin 1.70 H Direct Bilirubin Indirect Bilirubin AST 107 H ALT 43 Alkaline Phosphatase 44 L Lactate Dehydrogenase B-Natriuretic Peptide Total Protein 6.1 L Albumin 2.9 L Globulin 3.2 Albumin/Globulin Ratio 0.9 Urine Color Urine Clarity Urine pH Ur Specific [place] Urine Protein Urine Glucose (UA) Urine Ketones Urine Occult Blood Urine Nitrite Urine Bilirubin Urine Urobilinogen Ur Leukocyte Esterase Urine RBC Urine WBC Ur Squamous Epith Cells Urine Bacteria Urine Mucus 06/19/19 06/19/19 06/19/19 06:20 06:20 07:58 WBC RBC Hgb Hct MCV MCH MCHC RDW RDW Differential Plt Count MPV Immature Gran % (Auto) Neut % (Auto) Lymph % (Auto) [place] % (Auto) Eos % (Auto) Baso % (Auto) Absolute Neuts (auto) Absolute Lymphs (auto) Total Counted APTT Activated Clotting Time 125 Sodium Potassium Chloride Carbon Dioxide Anion Gap BUN Creatinine Estim Creat Clear Calc Est GFR (MDRD) Af Amer Est GFR (MDRD) Non-Af BUN/Creatinine Ratio Glucose Calcium Phosphorus Magnesium Total Bilirubin 1.60 H Direct Bilirubin 0.35 H Indirect Bilirubin 1.20 H AST ALT Alkaline Phosphatase Lactate Dehydrogenase 581 H B-Natriuretic Peptide 311.4 H Total Protein Albumin Globulin Albumin/Globulin Ratio Urine Color Urine Clarity Urine pH Ur Specific [place] Urine Protein Urine Glucose (UA) Urine Ketones Urine Occult Blood Urine Nitrite Urine Bilirubin Urine Urobilinogen Ur Leukocyte Esterase Urine RBC Urine WBC Ur Squamous Epith Cells Urine Bacteria Urine Mucus 04/12/19 04/13/19 13:00 04:00 WBC RBC Hgb Hct MCV MCH MCHC RDW RDW Differential Plt Count MPV Immature Gran % (Auto) Neut % (Auto) Lymph % (Auto) [place] % (Auto) Eos % (Auto) Baso % (Auto) Absolute Neuts (auto) Absolute Lymphs (auto) Total Counted APTT Activated Clotting Time Sodium 143 Potassium 3.7 Chloride 110 H Carbon Dioxide 24.0 Anion Gap 9 BUN 15 Creatinine 0.84 Estim Creat Clear Calc 92.42 Est GFR (MDRD) Af Amer 116 Est GFR (MDRD) Non-Af 96 BUN/Creatinine Ratio 17.9 Glucose 108 H Calcium 8.3 L Phosphorus Magnesium 2.3 Total Bilirubin Direct Bilirubin Indirect Bilirubin AST ALT Alkaline Phosphatase Lactate Dehydrogenase B-Natriuretic Peptide Total Protein Albumin Globulin Albumin/Globulin Ratio Urine Color Yellow Urine Clarity Clear Urine pH 5.0 Ur Specific [place] 1.020 Urine Protein Negative Urine Glucose (UA) Normal Urine Ketones Negative Urine Occult Blood 250 H Urine Nitrite Negative Urine Bilirubin Negative Urine Urobilinogen Normal Ur Leukocyte Esterase Negative Urine RBC 10-25 SEEN Urine WBC 0 SEEN Ur Squamous Epith Cells 0 SEEN Urine Bacteria 0 SEEN Urine Mucus 0 SEEN Clinical Impression(s) from Imaging Studies Chest X-Ray 04/11/19 05:55 IMPRESSION: Intra-aortic balloon pump terminates at the level of the thoracic aortic arch. at 0500 Reported and signed by: Juan Peters MD Electronically Signed: Juan Peters MD at 4:59 EDT Tel , Service support , Chest X-Ray 04/12/19 04:36 IMPRESSION: Chronic interestitial changes. No radiographic evidence of acute cardiopulmonary disease. Tip of intra-aortic balloon pump is present superimposed over the aortic arch at 0527 Reported and signed by: Juan Peters MD Electronically Signed: Juan Peters MD at 5:26 EDT Tel , Service support , Medical Necessity - Tobacco Use Smoking Status: Never smoker Tobacco Use: Non-smoker Assessment/Plan All Active Problems (Last Reviewed 04/10/19 @ 11:54 by Seema Jay DO) STEMI (ST elevation myocardial infarction) (Acute) Stented coronary artery (Acute 04/10/19) RECOMMENDATIONS: 1. Continue nocturnal Pap therapy per home regimen. 2. Encourage incentive spirometer use while in bed. 3. The patient can be transferred to the medical intensive care unit from my perspective. IMPRESSIONS: 1. Ischemic cardiomyopathy status post PTCA to RCA Continue current medical management per cardiology recommendations. 2. Obstructive sleep apnea The patient reports that he is on AutoPap therapy nightly and is being followed longitudinally through the [place] [facility]. Recommend continuation of nocturnal Pap therapy per home regimen. 3. Paroxysmal atrial fibrillation/obesity/hypertension/hyperlipidemia Complicates care, management, recovery and prognosis. Continue home medications as indicated. This note was generated with [employer] software. It may contain incorrect words, spelling, and punctuation that were not noted in checking the note before signing. DISPOSITION: Given the patient's lack of further ICU/pulmonary needs, will sign off. Please call with any additional questions. Code Visit Inpatient E&M: 86099 Subs Hosp L2
--- NOTE | 2019-04-13 07:32 | PN_ITS ---
Patient Problems: Active and Suspected Problems (Last Reviewed 04/10/19 @ 11:54 by Seema Jay DO) STEMI (ST elevation myocardial infarction) (Acute) Stented coronary artery (Acute 04/10/19) Segmented LV systolic dysfunction- Moderate; LVEF: by LV gram 45 %; Elevated Left Ventricular End Diastolic Pressure; Triple vessel CAD of the LM, LAD, LCX, RCA and PDA. Successful PTCA/PRADEEP distal RCA with a 3.0 x 16 Promus Synergy, post dilated with a 3.0 x 8 NC Balloon; 90%-->0%, no dissection or plaque shift into ostial PDA> Unable to cannulate PDA with multiple wires so no PCI of PDA performed. Will leave for CABG vs elective PCI in the future. Subjective: Intra-aortic balloon pump was discontinued on 04/12/2019. T-max is 100.1 ?F over the past 24 hours. UA was unremarkable yesterday. Patient is not coughing. The groin site had no erythema. Blood pressure this morning is 155/98. Systolics have been overall mildly increased. He is 100% saturated on room air. Fluid balance on 04/12/2019 was -490. Good balance since admission is +3500. All lab was personally reviewed. Potassium is 3.7 today and the BUN is 15 with a creatinine of 0.84. Magnesium is normal at 2.3 today. Both indirect and direct bilirubin were mildly increased yesterday. The LDH was markedly increased to 581 which may be due to hemolysis but also may be due to recent STEMI. Blood and urine cultures from 04/12/2019 are pending. Denies chest pain, shortness of breath, palpitations. Dates he slept well last night. He was sitting up in the chair when I entered the room talking with his . He has had a lot of stress in his life recently which includes his mother passing away in September, biopsy of lung polyps that ended up being benign but he has been exposed to asbestos in the past, now with a STEMI and facing a CABG in 1 month. He admits to being depressed in the past when he was laid up in bed with bilateral quadriceps tears. He also knows that he is not anxious at times and his heart rate and blood pressure go up. He is agreeable to starting a medication to control anxiety and depression in preparation for CABG in 1 month. He is c/o stiffness in the R knee and when he gets upset he has back pain. - Physical Exam General: Alert, Oriented x3, Cooperative HEENT: Atraumatic, PERRLA, EOMI Oral: Moist Mucosa Neck: No JVD Lungs: Clear to auscultation Cardiovascular: Regular rate, Regular Rhythm, Normal S1, Normal S2, No rub noted, No Gallop, - - in NSR currently with PVC's....no VT. Did have some ventricular bigeminy Abdomen: Bowel Sounds Present, Soft, Non Tender, Non-Distended Extremities: No edema Neurological: Cranial nerves II-XII grossly intact, Neuro grossly intact Psych/Mental Status: Normal Affect, Appropriate Vital Signs Temp Pulse Resp BP Pulse Ox 98.5 F 64 18 155/98 H 100 04/13/19 06:00 04/13/19 06:00 04/13/19 06:00 04/13/19 06:00 04/13/19 06:00 Oxygen Flow Rate (L/min) 1 Oxygen Delivery Method Room Air Weight: 258 lb 13.163 oz Body Mass Index (BMI) 32.7 Intake and Output for Last 24 Hours 04/11/19 04/12/19 04/13/19 23:59 23:59 23:59 Intake Total 3619.1 / 4393.1 2438.5 / 2438.5 103 / 103 Output Total 1966 / 2141 2925 / 2925 550 / 550 Balance 1653.1 / 2252.1 -486.5 / -486.5 -447 / -447 Laboratory Tests Past 24 Hrs 04/12/19 04/12/19 04/12/19 06:20 06:20 07:58 Activated Clotting Time 125 Sodium Potassium Chloride Carbon Dioxide Anion Gap BUN Creatinine Estim Creat Clear Calc Est GFR (MDRD) Af Amer Est GFR (MDRD) Non-Af BUN/Creatinine Ratio Glucose Calcium Magnesium Total Bilirubin 1.60 H Direct Bilirubin 0.35 H Indirect Bilirubin 1.20 H Lactate Dehydrogenase 581 H B-Natriuretic Peptide 311.4 H Urine Color Urine Clarity Urine pH Ur Specific [place] Urine Protein Urine Glucose (UA) Urine Ketones Urine Occult Blood Urine Nitrite Urine Bilirubin Urine Urobilinogen Ur Leukocyte Esterase Urine RBC Urine WBC Ur Squamous Epith Cells Urine Bacteria Urine Mucus 04/12/19 04/13/19 13:00 04:00 Activated Clotting Time Sodium 143 Potassium 3.7 Chloride 110 H Carbon Dioxide 24.0 Anion Gap 9 BUN 15 Creatinine 0.84 Estim Creat Clear Calc 92.42 Est GFR (MDRD) Af Amer 116 Est GFR (MDRD) Non-Af 96 BUN/Creatinine Ratio 17.9 Glucose 108 H Calcium 8.3 L Magnesium 2.3 Total Bilirubin Direct Bilirubin Indirect Bilirubin Lactate Dehydrogenase B-Natriuretic Peptide Urine Color Yellow Urine Clarity Clear Urine pH 5.0 Ur Specific [place] 1.020 Urine Protein Negative Urine Glucose (UA) Normal Urine Ketones Negative Urine Occult Blood 250 H Urine Nitrite Negative Urine Bilirubin Negative Urine Urobilinogen Normal Ur Leukocyte Esterase Negative Urine RBC 10-25 SEEN Urine WBC 0 SEEN Ur Squamous Epith Cells 0 SEEN Urine Bacteria 0 SEEN Urine Mucus 0 SEEN Medical Necessity - Tobacco Use Smoking Status: Never smoker Tobacco Use: Non-smoker Assessment/Plan All Active Problems (Last Reviewed 04/10/19 @ 11:54 by Seema Jay DO) STEMI (ST elevation myocardial infarction) (Acute) Stented coronary artery (Acute 04/10/19) Impressions 1. STEMI 2. Triple-vessel coronary artery disease with PTCA/PRADEEP of the RCA 3. Ischemic cardiomyopathy with a 45% EF estimated on left ventriculogram 4. Hyperlipidemia 5. Hypertension 6. Nephrolithiasis-x1 remotely 7. Obesity 8. Paroxysmal atrial fibrillation 9. Chronic anticoagulation with apixaban 10. Intermittent right bundle branch block 11. NSVT 12. Paroxysmal atrial fibrillation 13. abnormal LFT's 14. Hypophosphatemia 15. Premature ventricular contractions 16. Allergic rhinitis-continues to have postnasal drainage despite Claritin 17. ABRIL on CPAP transfer to PCU Zostrix to his knees 3 times daily as needed pain and stiffness Start Atrovent nasal spray 2 sprays to each nostril 3 times daily Continue Claritin Start Cymbalta 20 mg p.o. daily He was advised to get up and walk today so that we can evaluate his heart rate and blood pressure with exertion and to see if he has chest discomfort or dyspnea. CABG in 1-2 months - will possibly be at [facility] per Dr. Pantoja's note spent 40 minutes with the pt and his answering questions, educating and discussing the importance of managing anxiety/depression for quality of life and to get him ready for upcoming CABG Will need to repeat the LFT's adn if the bili stays increased evaluate for possible hemolysis vs liver disease Code Visit Inpatient E&M: 26539 Subs Hosp L3
[2019-04-13] MEDS: Aspirin E.C. 81 MG Tablet PO (07:51)
[2019-04-13] MEDS: Magnesium Oxide 400 MG Tablet PO (07:51)
[2019-04-13] MEDS: CHLORHEXIDINE GLUC 2% CLOTH 1 EACH TOWELETTE TOPICAL (09:05)
[2019-04-13] MEDS: TICAGRELOR 90 MG TABLET PO ×2 (09:05→22:23)
[2019-04-13] MEDS: Lisinopril 2.5 MG Tablet PO (09:06)
[2019-04-13] MEDS: Loratadine 10 MG Tablet PO (09:07)
[2019-04-13] MEDS: Metoprolol Tartrate 25 MG Tablet PO ×2 (09:07→22:23)
--- NOTE | 2019-04-13 09:49 | PCM.PN.CARD ---
Subjectve: Patient doing much better this morning. Status post intra-aortic balloon pump removed yesterday and right groin is clean/dry/intact without evidence of thrills, bruits or hematoma. Blood pressure and heart rate are well controlled. Hemoglobin and creatinine are within nominal limits. Telemetry showed reversion back to normal sinus rhythm with rare PVCs and occasional ventricular trigeminy. No runs of nonsustained ventricular tachycardia recorded. Objective: Vital Signs Temp Pulse Resp BP Pulse Ox 98.5 F 83 26 H 117/50 L 98 04/13/19 06:00 04/13/19 09:07 04/13/19 09:00 04/13/19 09:07 04/13/19 09:00 Oxygen Flow Rate (L/min) 1 Oxygen Delivery Method Room Air Weight: 258 lb 13.163 oz Body Mass Index (BMI) 32.7 Intake and Output for Last 24 Hours 04/11/19 04/12/19 04/13/19 23:59 23:59 23:59 Intake Total 3619.1 / 4393.1 2438.5 / 2438.5 103 / 103 Output Total 1966 / 2141 2925 / 2925 550 / 550 Balance 1653.1 / 2252.1 -486.5 / -486.5 -447 / -447 General: Awake, Alert, Oriented x 3 HEENT: PERRL, EOMI, Sclera Non Icteric Neck: Supple, Good ROM, No Lymph Node Enlargement Lungs: Clear to auscultation Cardiovascular: Regular Rhythm, Normal S1, Normal S2, No Murmurs, No Rubs, No Gallops Vascular: No Carotid Bruits, Normal Femoral Pulses, Normal Radial Pulses, Normal Dorsalis Pedal Pulse, Normal Posterior Tibial Pulses Abdomen: Bowel Sounds Present, Soft, Non Tender, No HSM, No Organomegaly Extremities: No Cyanosis, No Clubbing, No edema Neurological: No Focal Motor or Sensory Deficit 04/12/19 06:20: Total Bilirubin 1.60 H, Direct Bilirubin 0.35 H, Indirect Bilirubin 1.20 H 04/12/19 13:00: Urine Color Yellow, Urine Clarity Clear, Urine pH 5.0, Ur Specific [place] 1.020, Urine Protein Negative, Urine Glucose (UA) Normal, Urine Ketones Negative, Urine Occult Blood 250 H, Urine Nitrite Negative, Urine Bilirubin Negative, Urine Urobilinogen Normal, Ur Leukocyte Esterase Negative, Urine RBC 10-25 SEEN, Urine WBC 0 SEEN 04/13/19 04:00: Sodium 143, Potassium 3.7, Chloride 110 H, Carbon Dioxide 24.0, Anion Gap 9, BUN 15, Creatinine 0.84, Est GFR (MDRD) Af Amer 116, Est GFR (MDRD) Non-Af 96, BUN/Creatinine Ratio 17.9, Glucose 108 H, Calcium 8.3 L, Magnesium 2.3 Rhythm: EKG: ECHO: Stress Test: Cardiac Cath: PCI: CT Surgery: Holter monitor: EPS: PPM: CXR: Chest CT Scan: Medical Necessity - Tobacco Use Smoking Status: Never smoker Tobacco Use: Non-smoker Assessment/Plan 1. Acute inferior/posterior wall myocardial infarction: The patient underwent emergent left heart catheterization, and angioplasty and drug-eluting stenting to his distal right coronary artery segue into his posterior lateral branch due to subtotal occlusion. We were unable to cannulate his PDA which has a long diffusely diseased complex lesion, but may be an adequate touchdown site distally for bypass surgery. In addition he was found to have significant left main disease, LAD disease, and diagonal disease which will require elective bypass surgery in the near future. Patient remained hemodynamically stable although did develop atrial fibrillation but then reverted back to normal sinus rhythm with the assistance of IV amiodarone. He is remained in normal sinus rhythm. Intra-aortic balloon pump removed on 04/12/2019 and direct manual pressure held for 30 minutes. We will hold off on starting anticoagulation, until his groin is healed. Would hold off on Eliquis therapy until he is for at least 5 days to allow for groin access healing. Recommend continuing baby aspirin for life, and Brilinta for at least 3 months time prior to elective bypass surgery. From our preliminary research it appears the patient may be a candidate for bypass surgery at [facility]. If this is the case I will call Dr. Tidwell to make arrangements for the patient to be seen as an outpatient. We will make arrangements for copies of his catheterization and echo films to be sent ahead of time. I would allow at least 1 to 2 months time of healing for his acute myocardial infarction as well as his drug-eluting stent. The drug-eluting component should be absorbed within 90 days time. 2. LV dysfunction: The patient's echocardiogram shows relatively intact LV function with an EF around 50% with mild inferior hypokinesis. Hopefully this will improve with medical therapy, revascularization, and healing. Continue beta-felicitas and JOVANY inhibitor therapy. Repeat echocardiogram in 6 months time. 3. Hyperlipidemia: The patient's LDL cholesterol is a 4 and HDL is 30. Continue Lipitor therapy. 4. Obstructive sleep apnea: Patient has known obstructive sleep apnea and recommend continuing CPAP therapy. 5. Atrial fibrillation: Patient developed atrial fibrillation but has a known history of paroxysmal atrial fibrillation prior to this and was on Eliquis therapy. He has reverted back to normal sinus rhythm with the assistance of IV amiodarone. We will switch him to amiodarone p.o. 200 mg p.o. daily, and continue this through his bypass surgery to avoid recurrence of his atrial fibrillation. 6. D/w Dr Jay. Thank you very much for the opportunity to participate in the cardiac care of your patient. Patient may be transferred to the floor. Code Visit Inpatient E&M: 91599 Subs Hosp L2
[2019-04-13] MEDS: Amiodarone 200 MG Tablet PO (10:55)
[2019-04-13] MEDS: DULoxetine Hcl 20 MG Capsule PO (12:00)
--- NOTE | 2019-04-13 12:16 | CASEMGMT ---
RN CM Note: [facility] PPO website review for [facility] Cardiothroacic surgeons with pt's insurance for possible referral for CT surgery @ [facility]. Dr. Adalberto El and Dr. Darnell. Page to Dr. Pantoja to update, List will be on front of chart. Shelley RAMIREZN RN ACM x [phone]
[2019-04-13] MEDS: Ipratropium Bromide 0.06% NASAL SPRAY 2 SPRAY NASAL ×2 (14:23→22:23)
[2019-04-13] MEDS: Atorvastatin Calcium 80 MG Tablet PO (22:24)
[2019-04-14] VITALS (11 sets, daily range): BP systolic 120–131; BP diastolic 63–76; PULSE 62–81; RESP 14–16; TEMP 36.6–36.9; O2SAT 96–98
[2019-04-14] MEDS: Magnesium Oxide 400 MG Tablet PO (08:08)
[2019-04-14] MEDS: Aspirin E.C. 81 MG Tablet PO (08:08)
--- NOTE | 2019-04-14 09:47 | PCM.PN.CARD ---
Subjectve: Patient doing well this morning, no 24-hour events. Telemetry showed atrial fibrillation with controlled ventricular response this morning despite transitioning my IV to p.o. amiodarone. Patient is now in semi-isolation being evaluated for C. difficile after 3 episodes of watery diarrhea. No chest pain symptoms. Objective: Vital Signs Temp Pulse Resp BP Pulse Ox 98.3 F 69 16 125/63 H 96 04/14/19 07:45 04/14/19 07:45 04/14/19 07:45 04/14/19 07:45 04/14/19 08:04 Oxygen Flow Rate (L/min) 1 Oxygen Delivery Method Room Air Weight: 257 lb 4.471 oz Body Mass Index (BMI) 32.7 Intake and Output for Last 24 Hours 04/12/19 04/13/19 04/14/19 23:59 23:59 23:59 Intake Total 2438.5 / 2438.5 200 / 320 360 / 360 Output Total 2925 / 2925 1050 / 1050 Balance -486.5 / -486.5 -850 / -730 360 / 360 General: Awake, Alert, Oriented x 3 HEENT: PERRL, EOMI, Sclera Non Icteric Neck: Supple, Good ROM, No Lymph Node Enlargement Lungs: Clear to auscultation Cardiovascular: Regular Rhythm, Normal S1, Normal S2, No Murmurs, No Rubs, No Gallops Vascular: No Carotid Bruits, Normal Femoral Pulses, Normal Radial Pulses, Normal Dorsalis Pedal Pulse, Normal Posterior Tibial Pulses Abdomen: Bowel Sounds Present, Soft, Non Tender, No HSM, No Organomegaly Extremities: No Cyanosis, No Clubbing, No edema Neurological: No Focal Motor or Sensory Deficit Rhythm: EKG: ECHO: Stress Test: Cardiac Cath: PCI: CT Surgery: Holter monitor: EPS: PPM: CXR: Chest CT Scan: Medical Necessity - Tobacco Use Smoking Status: Never smoker Tobacco Use: Non-smoker Assessment/Plan 1. Acute inferior/posterior wall myocardial infarction: The patient underwent emergent left heart catheterization, and angioplasty and drug-eluting stenting to his distal right coronary artery segue into his posterior lateral branch due to subtotal occlusion. We were unable to cannulate his PDA which has a long diffusely diseased complex lesion, but may be an adequate touchdown site distally for bypass surgery. In addition he was found to have significant left main disease, LAD disease, and diagonal disease which will require elective bypass surgery in the near future. Patient remained hemodynamically stable although did develop atrial fibrillation but then reverted back to normal sinus rhythm with the assistance of IV amiodarone. He is remained in normal sinus rhythm. Intra-aortic balloon pump removed on 04/12/2019 and direct manual pressure held for 30 minutes. We will hold off on starting anticoagulation, until his groin is healed. Would hold off on Eliquis therapy until he is for at least 5 days to allow for groin access healing. Recommend continuing baby aspirin for life, and Brilinta for at least 3 months time prior to elective bypass surgery. I spoke with the CV surgeon Dr. Tidwell at [facility] yesterday 04/13/2019 and has agreed with our treatment plan pending review of his catheterization films. I careered over the catheterization films to Dr. Tidwell's office by Hernandez yesterday, and he will review them with a cardiology catheterization/CV surgery meeting this upcoming Wednesday. Should the patient be deemed a bypass candidate, he will require aspirin and Brilinta for at least 3 months time unless he has symptomatic exertional anginal symptoms which would require more urgent bypass surgery. The drug-eluting component should be absorbed within 90 days time. 2. LV dysfunction: The patient's echocardiogram shows relatively intact LV function with an EF around 50% with mild inferior hypokinesis. Hopefully this will improve with medical therapy, revascularization, and healing. Continue beta-felicitas and JOVANY inhibitor therapy. Repeat echocardiogram in 6 months time after cardiac rehab. 3. Hyperlipidemia: The patient's LDL cholesterol is a 4 and HDL is 30. Continue Lipitor therapy. 4. Obstructive sleep apnea: Patient has known obstructive sleep apnea and recommend continuing CPAP therapy. 5. Atrial fibrillation: Patient developed atrial fibrillation but has a known history of paroxysmal atrial fibrillation prior to this and was on Eliquis therapy. He had reverted back to normal sinus rhythm with the assistance of IV amiodarone, however his rhythm has reverted back to atrial fibrillation this morning. He is asymptomatic. We will continue amiodarone 200 mg p.o. daily, and hopefully he will revert back to normal sinus rhythm. Would recommend continuing amiodarone through his bypass surgery. In addition we will start him on Lovenox 70 mg q. twice daily for CVA protection. Recommend restarting his Eliquis 5 mg p.o. twice daily this upcoming Wednesday assuming his groin is intact. He has no issues with his groin after intra-balloon pump removal on 04/12/2019. 6. Thank you very much for the opportunity to participate in the cardiac care of your patient. Patient may be discharged home if his C. difficile evaluation is negative. He will follow-up with Dr. Pantoja going forward. Code Visit Inpatient E&M: 90334 Subs Hosp L2
[2019-04-14] MEDS: Enoxaparin 80 MG/0.8 ML Syringe 70 MG SC (10:18)
[2019-04-14] MEDS: TICAGRELOR 90 MG TABLET PO (10:19)
[2019-04-14] MEDS: Loratadine 10 MG Tablet PO (10:20)
[2019-04-14] MEDS: DULoxetine Hcl 20 MG Capsule PO (10:20)
[2019-04-14] MEDS: Metoprolol Tartrate 25 MG Tablet PO (10:20)
[2019-04-14] MEDS: Amiodarone 200 MG Tablet PO (10:20)
[2019-04-14] MEDS: Lisinopril 2.5 MG Tablet PO (10:21)
[2019-04-14] MEDS: Ipratropium Bromide 0.06% NASAL SPRAY 2 SPRAY NASAL (13:17)
--- NOTE | 2019-04-14 13:33 | CASEMGMT ---
ANTHONY ESPINOZA Note: Brillinta savings card to [facility] pharmacy. Cost check for prescriptions. Brillinta was covered under savings card, Lovenox: was declined and self pay cost would be $52.30 for 5 syringes per Pharmacist. Other meds will cost approx $30 plus the OTC medications. -Attempted call to prior auth line for [employer] to check Lovenox. ( ). Was told Lovenox prescription did not need prior auth. -Pt is willing to pay $52.30 for Lovenox script and other scripts. Pharmacist updated to fill all prescriptions. -[facility] request. . -ANTHONY Aleman CM updated. Shelley CABRERA RN ACM
--- NOTE | 2019-04-14 15:01 | PCM.DC ---
- Discharge Diagnoses Current Active Problems: Current Active and Chronic Problems (Last Reviewed 04/10/19 @ 11:54 by Seema Jay DO) Hypertension (Chronic) Dyslipidemia (Chronic) Obstructive sleep apnea (Chronic) On CPAP Paroxysmal atrial fibrillation (Chronic) Right bundle branch block (Chronic) Obesity (Chronic) Chronic anticoagulation (Chronic) Nephrolithiasis (Chronic) X 1 in the past STEMI (ST elevation myocardial infarction) (Acute) Atherosclerotic heart disease of [place] coronary artery with other forms of angina pectoris (Chronic) Stented coronary artery (Acute 04/10/19) Segmented LV systolic dysfunction- Moderate; LVEF: by LV gram 45 %; Elevated Left Ventricular End Diastolic Pressure; Triple vessel CAD of the LM, LAD, LCX, RCA and PDA. Successful PTCA/PRADEEP distal RCA with a 3.0 x 16 Promus Synergy, post dilated with a 3.0 x 8 NC Balloon; 90%-->0%, no dissection or plaque shift into ostial PDA> Unable to cannulate PDA with multiple wires so no PCI of PDA performed. Will leave for CABG vs elective PCI in the future. You will use the following diet at home:: Cardiac Your food should be the consistency of: Regular Your liquids should be the consistency of: Regular/Thin Discharge Activity: - - You may remove the dressing in 1 day. You may shower in 1 day. No sex for 10-14 days. Do not lift more than 10 pounds for the next 10-14 days. No strenuous activity. You may start a walking program and work up to 30 minutes daily 5-6 times a week. No hills. May resume sexual activity in: 10-14 days Call your doctor if your incision/area has: Continuous Slow Oozing, Sudden Increased Bleeding, Increased Pain/ Swelling, Increased Redness, Foul Smelling Discharge, Swelling at the incision site Call your doctor if you observe: Fever of 101 or Higher, Shortness of breath, Dizziness, Fainting spells, Swelling in the ankles, Chest pain Instructions: Fast-Acting Nitroglycerin, Recognizing a Heart Attack or Angina, Taking Fast-Acting Nitroglycerin, Your Body's Response to Anxiety, Depression Affects Your Mind and Body Additional Instructions: 1. You will take the Lovenox shot every 12 hours x 5 doses and then on Wednesday if no bleeding from the groin you will restart the Eliquis twice a day. 2. IF you get chest pain, shortness of breth with exertion and sweating the first thing you do is SIT DOWN. Always keep the nitroglycerin in your pocket. After you sit down put a nitro under the tongue. Wait 5 minutes and if the pain is not gone take a second Nitro and Call the EMT's. Do NOT drive to the ER....always call 911. 3. You are on a blood thinner AND 2 antiplatelet drugs. You are at risk for bleeding. If you are bleeding from the gums, mouth, nose, anus, penis call your doctor or Dr. Pantoja for advice. Also if you are getting large bruises. If you are having black liquid stools or are vomiting blood get yourself to an ER. 4. Stay calm and don't stress....I know, easier said than done. I have started you on Cymbalta which helps with anxiety, depression and with chronic pain. It will take a good 2 weeks or more to get the full benefit of the drug. 5. Good luck with making it down the ladder in July.......I want a picture of you on the ladder. Be patient with this.......we need to be careful and have you in the best shape posisble before surgery so get walking. It was a pleasure meeting you and talking with you. Allergies/Adverse Reactions: Allergies No Known Allergies Allergy (Verified 04/10/19 08:17) Medications to take at Discharge Acetaminophen [Tylenol] 500 mg PO Q6H PRN PRN 04/10/19 Albuterol IH (ProAir) [Proair Hfa] 1 - 2 puff INHALATION Q6H PRN PRN 04/10/19 Loratadine [Claritin] 10 mg PO DAILY PRN PRN 04/10/19 Metoprolol Tartrate [Lopressor (beta felicitas)] 25 mg PO BID 04/10/19 Triamcinolone 0.1% Cream [Kenalog] 1 applic TOPICAL BID PRN 04/10/19 Amiodarone HCl [Cordarone] 200 mg PO DAILY #30 tab 04/14/19 Apixaban [Eliquis] 5 mg PO BID #0 04/14/19 Aspirin E.C. [Ecotrin] 81 mg PO DAILY@0800 #30 tab 04/14/19 Atorvastatin Calcium [Lipitor] 80 mg PO QHS #30 tab 04/14/19 Duloxetine Hcl [Cymbalta] 20 mg PO DAILY #30 cap 04/14/19 Enoxaparin [Lovenox] 70 mg SUBCUT Q12 #5 syringe 04/14/19 Lisinopril [Zestril] 2.5 mg PO DAILY #30 tab 04/14/19 Loratadine [Claritin] 10 mg PO DAILY tab 04/14/19 Magnesium Oxide [Mag-Ox 400] 400 mg PO DAILYCM #30 tab 04/14/19 Metoprolol Tartrate [Lopressor (beta felicitas)] 25 mg PO BID #60 tab 04/14/19 Ticagrelor [Brilinta] 90 mg PO BID #60 tab 04/14/19 The following prescriptions were given: Ticagrelor [Brilinta] 90 mg PO BID #60 tab Transmission Status: Received by [facility] Amiodarone HCl [Cordarone] 200 mg PO DAILY #30 tab Transmission Status: Received by [facility] Duloxetine Hcl [Cymbalta] 20 mg PO DAILY #30 cap Transmission Status: Received by [facility] Aspirin E.C. [Ecotrin] 81 mg PO DAILY@0800 #30 tab Transmission Status: Received by [facility] Atorvastatin Calcium [Lipitor] 80 mg PO QHS #30 tab Transmission Status: Received by [facility] Metoprolol Tartrate [Lopressor (beta felicitas)] 25 mg PO BID #60 tab Transmission Status: Received by [facility] Enoxaparin [Lovenox] 70 mg SUBCUT Q12 #5 syringe Transmission Status: Received by [facility] Magnesium Oxide [Mag-Ox 400] 400 mg PO DAILYCM #30 tab Transmission Status: Received by [facility] Lisinopril [Zestril] 2.5 mg PO DAILY #30 tab Transmission Status: Received by [facility] Orders to be completed after discharge: Phase II, Outpatient Cardiac Rehab Location: None Selected [facility] [Primary [facility] Provider] - Please follow up with your Primary Care Physician in: 1 week Test Results: Test results from this visit will be discussed in further detail at your follow-up appointment, if applicable. Please Follow Up With: Johnny Pantoja MD When: 1-2 weeks Proposed Discharge Date: 04/14/19
--- NOTE | 2019-04-14 15:22 | PCM.DC.SUM ---
Discharge Date and Diagnosis - Problem List Patient Problems: Active and Suspected Problems (Last Reviewed 04/10/19 @ 11:54 by Seema Jay DO) Premature ventricular contraction (Acute) Hypophosphatemia (Acute) Nonsustained ventricular tachycardia (Acute) Ischemic cardiomyopathy (Acute) STEMI (ST elevation myocardial infarction) (Acute) Stented coronary artery (Acute 04/10/19) Segmented LV systolic dysfunction- Moderate; LVEF: by LV gram 45 %; Elevated Left Ventricular End Diastolic Pressure; Triple vessel CAD of the LM, LAD, LCX, RCA and PDA. Successful PTCA/PRADEEP distal RCA with a 3.0 x 16 Promus Synergy, post dilated with a 3.0 x 8 NC Balloon; 90%-->0%, no dissection or plaque shift into ostial PDA> Unable to cannulate PDA with multiple wires so no PCI of PDA performed. Will leave for CABG vs elective PCI in the future. Date of Admission: 04/10/19 Date of Discharge: 04/14/19 - Primary Discharge Diagnosis Active and Suspected Problems (Last Reviewed 04/10/19 @ 11:54 by Seema Jay DO) STEMI (ST elevation myocardial infarction) (Acute) Stented coronary artery (Acute 04/10/19) Segmented LV systolic dysfunction- Moderate; LVEF: by LV gram 45 %; Elevated Left Ventricular End Diastolic Pressure; Triple vessel CAD of the LM, LAD, LCX, RCA and PDA. Successful PTCA/PRADEEP distal RCA with a 3.0 x 16 Promus Synergy, post dilated with a 3.0 x 8 NC Balloon; 90%-->0%, no dissection or plaque shift into ostial PDA> Unable to cannulate PDA with multiple wires so no PCI of PDA performed. Will leave for CABG vs elective PCI in the future. 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 at 0500 Reported and signed by: Juan Peters MD Electronically Signed: Juan Peters MD at 4:59 EDT Tel , Service support , Chest X-Ray 04/12/19 04:36 IMPRESSION: Chronic interestitial changes. No radiographic evidence of acute cardiopulmonary disease. Tip of intra-aortic balloon pump is present superimposed over the aortic arch at 0527 Reported and signed by: Juan Peters MD Electronically Signed: Juan Peters MD at 5:26 EDT Tel , Service support , Dr. Johnny Pantoja-[facility] Dr. Jamey Delgado-travel ticketing reviewer Operations: None Procedures: 2-D Echocardiogram - Interpretation Summary Mildly dilated left ventricle. The estimated ejection fraction is 50 %. Normal diastology for age. Infero-Basal: Mildly hypokinetic Mildly dilated right ventricle. The left atrium is severely enlarged. Trivial mitral valve insufficiency. Trivial tricuspid valve insufficiency. Right ventricular systolic pressure estimated to be 32 mmHg. The study was technically difficult. There is no comparison study available. Contrast injection was performed., Cardiac catheterization - Segmented LV systolic dysfunction- Moderate LVEF: by LV gram 45 % Elevated Left Ventricular End Diastolic Pressure Triple vessel CAD of the LM, LAD, LCX, RCA and PDA. Successful PTCA/PRADEEP distal RCA with a 3.0 x 16 Promus Synergy, post dilated with a 3.0 x 8 NC Balloon; 90%-->0%, no dissection or plaque shift into ostial PDA> Unable to cannulate PDA with multiple wires so no PCI of PDA performed., - - Intra-aortic balloon pump for 48 hours Summary of Care Provided: The patient is a 73 year old M with a past medical history of hypertension, dyslipidemia, paroxysmal atrial fibrillation, chronic anticoagulation with Eliquis, nephrolithiasis, obstructive sleep apnea (on CPAP), family history of premature CAD and obesity who presented to the ED at [facility] on 04/10/2019 complaining of crushing substernal and left chest pain that radiated to the neck and down the left arm and was associated with diaphoresis, nausea and shortness of breath. He had been having stuttering chest pain for the preceding 7 to 10 days that came on with exertion but then went away. The chest pain became constant on 04/09/2019. EKG in the emergency room showed ST elevation and a STEMI alert was called. He was taken to the [facility] by Dr. Pantoja and the cath showed a 45% ejection fraction on the left ventriculogram. There was elevated left ventricular end-diastolic pressure and triple disease involving the LM, LAD, LCx, RCA and PDA. He underwent successful PTCA/PRADEEP of the distal right coronary artery. Dr. Pantoja was unable to cannulate the PDA so no PCI was performed. Postprocedure he was transferred to the intensive care unit on a balloon pump at 1:1. Overnight he had PVC's and NSVT. He also had PAF. He was started on an amiodarone infusion and then transitioned to PO. He remained on the balloon pump for 48H. It was discontinued on 04/12/2019. He was transferred to the progressive care unit on 04/13/2019. Following transfer to PCU he had PVC's and ventricular bigeminy but no further AF. He ambulated in the halls without WISE or CP. Dr. Pantoja was in contact with [facility] support services director and was told that he would likely have CABG at [facility]. Dr. Pantoja was then in contact with Dr. Tidwell at [facility] and the films were sent. He will be discussed with the cardiology catheterization/CV surgery meeting this coming week. If he is deemed a CABG candidate he will require aspirin and Brilinta for at least 3 months time prior to surgery unless he has symptomatic his exertional anginal symptoms that require more urgent bypass surgery. He was quite anxious in the hospital and has had a lot of stress in his life the past 6 months. He was agreeable to starting Cymbalta to help control anxiety, depression and chronic pain until such time that he is able to have surgery. He was started on a low dose of 20 mg daily. He was discharged from the hospital on 04/14/2019 and the vital signs at the time of discharge are blood pressure 123/65, heart rate 77, temperature 97.9 and he was 97% saturated on room air. PHYSICAL EXAM: GENERAL: alert, oriented X 3, Cooperative, NAD ORAL: moist mucosa, no mucosal lesions NECK: No JVD, supple, trachea midline LUNGS: CTA, symmetric chest expansion HEART: RRR, Normal S1 and S2, no rub, no gallop TELEMETRY: NSR with PVC's and ventricular bigeminy......no AF for the past 24 hours. ABDOMEN: soft, NT, ND, BS present, no guarding with palpation EXTREMITIES: no edema, no cyanosis, no calf tenderness SKIN: No rashes, no breakdown NEUROLOGIC: no focal neurologic deficits PSYCH: appropriate, normal affect, pleasant This note was generated with [employer] dictation software. It may contain incorrect words, spelling, and punctuation that were not noted in checking the note before signing. Patient Problems: Active and Suspected Problems (Last Reviewed 04/10/19 @ 11:54 by Seema Jay DO) Premature ventricular contraction (Acute) Hypophosphatemia (Acute) Nonsustained ventricular tachycardia (Acute) Ischemic cardiomyopathy (Acute) STEMI (ST elevation myocardial infarction) (Acute) Stented coronary artery (Acute 04/10/19) Segmented LV systolic dysfunction- Moderate; LVEF: by LV gram 45 %; Elevated Left Ventricular End Diastolic Pressure; Triple vessel CAD of the LM, LAD, LCX, RCA and PDA. Successful PTCA/PRADEEP distal RCA with a 3.0 x 16 Promus Synergy, post dilated with a 3.0 x 8 NC Balloon; 90%-->0%, no dissection or plaque shift into ostial PDA> Unable to cannulate PDA with multiple wires so no PCI of PDA performed. Will leave for CABG vs elective PCI in the future. - Physical Exam Vital Signs Temp Pulse Resp BP Pulse Ox 97.9 F 72 14 123/65 H 97 04/14/19 13:37 04/14/19 14:00 04/14/19 13:37 04/14/19 13:37 04/14/19 13:37 Oxygen Flow Rate (L/min) 1 Oxygen Delivery Method Room Air Weight: 257 lb 4.471 oz Body Mass Index (BMI) 32.7 Intake and Output for Last 24 Hours 04/12/19 04/13/19 04/14/19 23:59 23:59 23:59 Intake Total 2438.5 / 2438.5 200 / 320 940 / 940 Output Total 2925 / 2925 1050 / 1050 Balance -486.5 / -486.5 -850 / -730 940 / 940 Microbiology Past 72 Hours 04/12/19 14:15 Blood Culture - Preliminary Blood Culture (Wb) - Right Hand No growth in 48 hours. 04/12/19 13:15 Blood Culture - Preliminary Blood Culture (Wb) - Left Forearm No growth in 48 hours. 04/12/19 13:00 Urine Culture - Final Urine Catheter - Aguilar Culture exhibits no growth. 04/13/19 15:15 Enteric Bacteriology - Final Stool 04/13/19 15:15 Stool Occult Blood (AYDEE) - Final Stool Discharge Activity: - - You may remove the dressing in 1 day. You may shower in 1 day. No sex for 10-14 days. Do not lift more than 10 pounds for the next 10-14 days. No strenuous activity. You may start a walking program and work up to 30 minutes daily 5-6 times a week. No hills. May resume sexual activity in: 10-14 days Call your doctor if your incision/area has: Continuous Slow Oozing, Sudden Increased Bleeding, Increased Pain/ Swelling, Increased Redness, Foul Smelling Discharge, Swelling at the incision site Call your doctor if you observe: Fever of 101 or Higher, Shortness of breath, Dizziness, Fainting spells, Swelling in the ankles, Chest pain Home Medications: Medications to take at Discharge Acetaminophen [Tylenol] 500 mg PO Q6H PRN PRN 04/10/19 Albuterol IH (ProAir) [Proair Hfa] 1 - 2 puff INHALATION Q6H PRN PRN 04/10/19 Loratadine [Claritin] 10 mg PO DAILY PRN PRN 04/10/19 Metoprolol Tartrate [Lopressor (beta kaitlin)] 25 mg PO BID 04/10/19 Triamcinolone 0.1% Cream [Kenalog] 1 applic TOPICAL BID PRN 04/10/19 Amiodarone HCl [Cordarone] 200 mg PO DAILY #30 tab 04/14/19 Apixaban [Eliquis] 5 mg PO BID #0 04/14/19 Aspirin E.C. [Ecotrin] 81 mg PO DAILY@0800 #30 tab 04/14/19 Atorvastatin Calcium [Lipitor] 80 mg PO QHS #30 tab 04/14/19 Duloxetine Hcl [Cymbalta] 20 mg PO DAILY #30 cap 04/14/19 Enoxaparin [Lovenox] 70 mg SUBCUT Q12 #5 syringe 04/14/19 Lisinopril [Zestril] 2.5 mg PO DAILY #30 tab 04/14/19 Loratadine [Claritin] 10 mg PO DAILY tab 04/14/19 Magnesium Oxide [Mag-Ox 400] 400 mg PO DAILYCM #30 tab 04/14/19 Metoprolol Tartrate [Lopressor (beta kaitlin)] 25 mg PO BID #60 tab 04/14/19 Ticagrelor [Brilinta] 90 mg PO BID #60 tab 04/14/19 Following Prescrptions Were Given to Patient: Ticagrelor [Brilinta] 90 mg PO BID #60 tab Transmission Status: Received by [facility] Amiodarone HCl [Cordarone] 200 mg PO DAILY #30 tab Transmission Status: Received by [facility] Duloxetine Hcl [Cymbalta] 20 mg PO DAILY #30 cap Transmission Status: Received by [facility] Aspirin E.C. [Ecotrin] 81 mg PO DAILY@0800 #30 tab Transmission Status: Received by [facility] Atorvastatin Calcium [Lipitor] 80 mg PO QHS #30 tab Transmission Status: Received by [facility] Metoprolol Tartrate [Lopressor (beta kaitlin)] 25 mg PO BID #60 tab Transmission Status: Received by [facility] Enoxaparin [Lovenox] 70 mg SUBCUT Q12 #5 syringe Transmission Status: Received by [facility] Magnesium Oxide [Mag-Ox 400] 400 mg PO DAILYCM #30 tab Transmission Status: Received by [facility] Lisinopril [Zestril] 2.5 mg PO DAILY #30 tab Transmission Status: Received by [facility] Other Amb Orders: Phase II, Outpatient Cardiac Rehab Location: None Selected [facility] - Please follow up with your Primary Care Physician in: 1 week Please Follow Up With: Johnny Pantoja MD When: 1-2 weeks Patient Instructions: Fast-Acting Nitroglycerin, Your Body's Response to Anxiety, Recognizing a Heart Attack or Angina, Depression Affects Your Mind and Body, Taking Fast-Acting Nitroglycerin Disposition: Home Minutes spent on discharge:: 45 Patient Condition:: Good Medical Necessity - Tobacco Use Smoking Status: Never smoker Tobacco Use: Non-smoker Meaningful Use Info Meaningful Use Diagnoses (Choose all that apply): AMI - AMI Aspirin given w/in 24hrs of arrival?: Yes ASA at discharge?: Yes Statins at discharge?: Yes Micah/ARB at discharge?: Yes Beta Kaitlin at discharge?: Yes Done w/ Acute NV measure.: Yes Documented LVEF (%): 45
--- NOTE | 2019-04-14 15:45 | CHAPLAIN ---
Type of Pastoral Visit ___ Initial Visit _x__ Follow-up Visit ___ On-call Visit ___ General Patient Visit ___ Spiritual Assessment ___ Family Conference ___ Bereavement ___ Rapid Response ___ Code Blue ___ Other (describe below) Pastoral Care Referral From _x__ Patient _x__ Family ___ Nurse ___ Physician ___ Screw Cutter ___ Take Away Attendant ___ Other (describe below) Sacrament/Intervention _x__ Active listening ___ Anointing ___ Scientology ___ Bereavement ___ Communion ___ Stephani exploration ___ _x__ Life review _x__ Prayer ___ Reconciliation ___ Sacrament of Sick ___ Supportive presence ___ Wedding ___ Other (describe below) Pastoral Comments
== END 2019-04-14 17:33 | disposition home or self-care (01) | DRG 271 ==
LOC: ED 08:22 → ICU 09:13 → PCU 04-14 10:33 → ICU 04-14 10:47 → PCU 04-14 10:48
PROVIDERS: Admitting Provider Internal Medicine; Emergency Provider Emergency Medicine; Referring Provider Internal Medicine Cardiovascular Disease; Visit Provider Internal Medicine Cardiovascular Disease
DX: I21.19 ST elevation (STEMI) myocardial infarction involving other coronary artery of inferior wall (principal); I47.2 Ventricular tachycardia; I21.29 ST elevation (STEMI) myocardial infarction involving other sites; Z82.49 Family history of ischemic heart disease and other diseases of the circulatory system; G47.33 Obstructive sleep apnea (adult) (pediatric); E78.5 Hyperlipidemia, unspecified; Z79.01 Long term (current) use of anticoagulants; I45.10 Unspecified right bundle-branch block; I25.5 Ischemic cardiomyopathy; I48.0 Paroxysmal atrial fibrillation; E66.9 Obesity, unspecified; Z68.32 Body mass index [BMI] 32.0-32.9, adult; Z87.442 Personal history of urinary calculi; I25.119 Atherosclerotic heart disease of native coronary artery with unspecified angina pectoris; I10 Essential (primary) hypertension; E83.39 Other disorders of phosphorus metabolism; J30.9 Allergic rhinitis, unspecified
CPT/HCPCS: 33967; 71045; 80048; 80053; 80061; 81001; 82247; 82248; 82274; 82962; 83615; 83735; 83880; 84100; 84484; 85025; 85027; 85347; 85610; 85730; 87040; 87086; 87506; 92941; 93005; 93306; 93458; 99284; J7030; J7040; J7050; Q9957; Q9967; A4216; C1725; C1769; C1874; C1887; C8929; C9606

== ENCOUNTER → 2019-08-08 11:29 | Outpatient (CLI) | payer MEDICARE, SELFPAY ==
[2019-04-12 15:03] VITALS: BMI 32.7
[2019-08-01 10:05] VITALS: BMI 30.9
--- NOTE | 2019-08-08 12:12 | PCM.CR.ITP ---
<Juan Jose Chavarria - Last Filed: 08/08/19 12:12> General Information - General Information Admitting Diagnosis: CABG @[facility] 06/16/2019 - Education/Goals Individual Counseling: Initial Assessment: Abnormal Cholesterol Levels, High Blood Pressure, Overweight/Obesity Cardiac Rehabilitation Goals: 1. Maintain the individual as the primary focus of care. 2. To improve the patient's quality of life. 3. Identification of cardiac risk factors and provide cardiac risk factor management. 4. Enhance the psychosocial status of the patient. 5. Reconditioning enough to allow the patient to resume customary activities. 6. Control symptoms of cardiac disease Scale for measuring improvement of personal goals: Enter appropriate number in Comments. 2 = Unchanged. 3 = Slightly Better. 4 = Moderate Improvement. 5 = Met my Goal Exercise - Initial Assessment - Visit Date of Eval: 08/08/19 Session #:: 0 - EVALUATION & ORIENTATION - Stages of Change Stages of Change:: Action - Physician Prescribed Exercise Modalities: Treadmill, Airdyne, NuStep Frequency (days/week): 3x/week for 12 weeks [36 sessions] Duration (Minutes):: 30-45 Intensity: 60-80% age predicted maximum heart rate reserve METs - Progression: 0.5-1.0 MET, RPE 11-14 WEEK: 3.5 Target Heart Rate:: 96-126 - Hypertension Do any of the following apply?: Yes, Medication Resting Blood Pressure:: 122/70 - Intervention Home Exercise/Activity Goal:: Moderate Exercise 30 min/day x 5 days/wk - Education Goals:: Warm-up, RPE BERNARDA Scale, S/S, Safe Exercise, Self-Monitoring - Exercise Program Goals Exercise Program Goals: Aerobic Activity >30 min Nutrition - Initial Assessment - Program Goals Nutrition Program Goals: LDL <70. Total Cholesterol <200. HDL >45. Triglycerides <150. HgbA1C <7%. BMI <25 - Visit Date of Assessment:: 08/08/19 - Stages of Change Stages of Change:: Action - Lipids Total Cholesterol (mg/dL) Goal = less than 200 mg/dL: 123 - 04/11/2019 HDL Cholesterol (mg/dL) Goal = less than 45 mg/dL: 30 LDL Cholesterol (mg/dL) Goal = less than 70 mg/dL: 74 Triglycerides (mg/dL) Goal = less than 150 mg/dL: 95 - Diabetes Diabetes:: No - Weight Management Height: 6 ft 2 in Weight:: 241 lb Body Fat %:: 30.9 - Intervention Referral to dietitian:: Yes - CARDIAC DIET & WHY WEIGHT PROGRAM Referral to Diabetic Clinic:: No Will attend diet classes:: Yes - Education Gave educational materials for:: Healthy eating Tobacco - Initial Assessment - Program Goals Tobacco Program Goals: Complete smoking cessation. Attend education classes. Improve Knowledge Test score - Stage of Change Stages of Change:: Action - Learning Barriers Learning Barriers: Ready to Learn - Family Support Do you have family support?: Yes - Tobacco Use Tobacco Use: Non-smoker Do you use smokeless tobacco?: No - Intervention Smoking Cessation Referral:: No Individual Education/Counseling:: No Education Schedule Given:: Yes - Education Attended class for:: Treating Heart Disease, How The Heart Works, What it means to have Heart Disease, How Coronary Artery Disease is Diagnosed, Heart Procedures, What Heart Medications Do, Risk Factors & Modifications, Living an Active Life, Nutrition, Emotions & Heart Disease, Stress Management & Relaxation, Sleep Disorders & Heart Disease Psychosocial - Initial Assess - Target Goals Target Goals: Assess presence or absence of depression. Using a valid screening tool, maximizes coping skills. Positive support system - Stages of Change Stages of Change:: Action - Psychosocial Test Tool Used:: HANDS Depression Questionnaire - Intervention PS - Interventions: Yes Attend Stress Management Classes, No Referral to Mental Health, No Referral to [facility] Case Management, No Referral to Physician, No Uses Stress Management Skills - Education Gave educational materials for:: Coping techniques, Signs & symptoms of depression, Stress management, Relaxation techniques - Patient/Program Goal Preventative Medication(s):: Aspirin, JOVANY inhibitor, Clopidogrel, Beta felicitas, Statin/lipid - Assistive Devices Assistive Devices:: None Fall Risk Assessed:: Yes <Lorna Gallagher - Last Filed: 08/08/19 13:37> General Information - Education/Goals Barriers to Learning: None Individual Counseling: Initial Assessment: High Blood Pressure, Hypertension, Sedentary Lifestyle, Stress - FAMILY AND RECENT HEALTH ISSUES, Family History of Heart Disease (under 65 years) Cardiac Rehabilitation Goals: 1. Maintain the individual as the primary focus of care. 2. To improve the patient's quality of life. 3. Identification of cardiac risk factors and provide cardiac risk factor management. 4. Enhance the psychosocial status of the patient. 5. Reconditioning enough to allow the patient to resume customary activities. 6. Control symptoms of cardiac disease Scale for measuring improvement of personal goals: Enter appropriate number in Comments. 2 = Unchanged. 3 = Slightly Better. 4 = Moderate Improvement. 5 = Met my Goal Personal Goals: Initial Assessment: Improve energy level, Participate in home exercise program, Improve muscle strength and endurance, Improve diet and eating habits (eat healthier), Control risk factors (learn risk factor modification) - B/P, CHOL, WT CONTROL, IMPROVE INACTIVITY Exercise - Initial Assessment - Stages of Change Stages of Change:: Action - Hypertension Resting Blood Pressure:: 128/68 Patient Health Questionnaire Initial Assessment 1. Little interest or pleasure in doing things: Not at all 2. Feeling down, depressed, or hopeless: Not at all 3. Trouble falling or staying asleep, or sleeping too much: Not at all 4. Feeling tired or having little energy: Several days 5. Poor appetite or overeating: Not at all 6. Feeling bad about yourself -- or that you are a failure or have let yourself or your family down: Not at all 7. Trouble concentrating on things, such as reading the newspaper or watching television: Not at all 8. Moving or speaking so slowly that other people could have noticed. Or the opposite - being so fidgety or restless that you have been moving around a lot more than usual: Not at all 9. Thoughts that you would be better off , or of hurting yourself in some way: Not at all How difficult have these problems made it for you to do your work, take care of things at home, or get along with other people?: Not difficult at all Total Score: 1 DARIAN-Q SV Test - Statements CAD is a disease of the arteries in the heart: False Examples of risk factors for heart disease: True Angina is chest pain or discomfort: True The benefits of resistance training include: True Eating more meat and dairy products: False Anti-platelet medications such as aspirin are important: True The only effective way to manage stress: False An exercise warm-up slowly increases heart rate: True Prepared, processed foods usually have high sodium: True Depression is common after a heart attack: True The statin medications lower cholesterol: True To control blood pressure, lower the amount of sodium: True If someone gets chest discomfort during walking: False Transfats are partially hydrogenated vegetable oils: True Sleep apnea that is not treated increases the risk: I Don't Know To control cholesterol, one should become a vegetarian: False Someone knows if he/she is exercising at the right level: I Don't Know Diabetes cannot be prevented with exercise & health eating: False Stress is a large risk for heart attack: True A diet that can help lower blood pressure is rich in: True - Total Score Total Correct Responses: 18 Self-Efficacy Initial Assessment We would like to know how confident you are in doing certain activities. Please select your confidence level for:: Select your confidence level for the following using the scale 1-10 where 1 is not at all confident and 10 is totally confident. Your score is the average of all 6 responses. Fatigue: How confident are you that you can keep the fatigue caused by your disease from interfering with the things you want to do? Select Number: 6 Physical Discomfort or Pain: How confident are you that you can keep the physical discomfort or pain of your disease from interfering with the things you want to do? Select Number: 8 Emotional Distress: How confident are you that you can keep the emotional distress caused by your disease from interfering with the things you want to do? Select Number: 8 Other Symptoms or Health Problems: How confident are you that you can keep other symptoms or health problems from interfering with the things you want to do? Select Number: 8 Different Tasks and Activities: How confident are you that you can do the different tasks and activities needed to manage your health condition so as to reduce your need to see a doctor? Medication: How confident are you that you can do things other than just taking medication to reduce how much your illness affects your everyday life? Select Number: 10 Nutrition Survey - Nutrition Survey Instructions Scoring Instructions: Scoring is as follows: Yes = 1 points. No = 0 point. Patient score that is >/=12 is considered to be at potential nutritional risk and could benefit from a referral to a registered dietitian. - Nutrition Survey Initial Have you lost >10 lbs over the past 2 months without trying?: No Are you following a special diet at home for diabetes, low fat, or low salt?: Yes Are you interested in meeting with a dietitian for help understanding your diet?: Yes Do you eat less than 3 meals a day?: No Do you eat fatty meats (saucedo, sausage, ribs, etc), fried foods, desserts, large amounts of salad dressings, margarine, butter, or cheese most days?: No Do you have food allergies? [Enter types in comment field]: No Do you eat in restaurants more than 3 times a week?: No Do you season food with salt, seasoning salt, or garlic salt?: No Do you used canned, boxed, frozen meals, or soups, seasoning packets?: No Total Score:: 2
--- NOTE | 2019-08-08 12:21 | CR.HP_ITS ---
CR - History & Physical - General Arrival date:: 08/08/19 Arrival time:: 11:45 Date of Referral:: 07/07/19 Date of CR Evaluation:: 08/08/19 Referring Physician: DR WORTHY Primary Diagnosis: PCI WITH STENT - History of Present Cardiac Event Onset Date: Enter Onset Date of cardiac illnesses in Comment field below Current stable Angina Pectoris:: No Acute Myocardial Infarction within 12 months:: Yes Coronary Artery Bypass Graft:: Yes - JUN 16 2019 Heart valve replacement or repair:: No PTCA or coronary stenting:: Yes Heart or Heart-Lung Transplant:: No Heart Failure EF <35%:: No - 40% Type of Symptoms:: INDIGESTION LIKE, RADIATED TO LT ARM, ACROSS CHEST , N& V, SLIGHT SOB. Interventions with present event:: STENT 04/10/2019, CAGB 2018 Were there any complications?: NONE - Medications Home Medications: Ambulatory Orders Medication Instructions Recorded Loratadine [Claritin] 10 mg PO DAILY PRN PRN 04/10/19 Triamcinolone 0.1% Cream [Kenalog] 1 applic TOPICAL BID PRN 04/10/19 Duloxetine Hcl [Cymbalta] 20 mg PO DAILY #30 cap 04/14/19 ticagrelor 90 mg tablet 90 mg PO BID #60 tab 05/01/19 acetaminophen ER 650 mg 650 mg PO Q6H PRN tab 07/31/19 tablet,extended release aspirin 81 mg tablet,delayed 81 mg PO DAILY 07/31/19 release amiodarone 200 mg tablet 200 mg PO DAILY #90 tab 08/01/19 atorvastatin 80 mg tablet 80 mg PO QHS #90 tab 08/01/19 metoprolol tartrate 25 mg tablet 12.5 mg PO BID #90 tab 08/01/19 - Allergies Allergies/Adverse Reactions: Allergies No Known Allergies Allergy (Verified 07/31/19 17:54) - Sleep Disorder Evaluation Hx of Sleep Apnea: Yes STOP Results: PT CURRETLY WEARS CPAP Advanced Directives - Advanced Directives Power of Grab Jack Worker: Yes Living Will: Yes - PT STATES HE HAS THESE. 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 Piyush Tidwell, [facility] Multi-vessel coronary artery stenosis (Chronic) I25.10 Bradycardia (Acute) R00.1 Near syncope (Acute) R55 Paroxysmal atrial fibrillation (Chronic) I48.0 Ischemic cardiomyopathy (Chronic) I25.[address] elevation myocardial infarction (STEMI) (Chronic) Onset Date: 04/10/19 I25.2 Atherosclerotic heart disease of [place] coronary artery with other forms of angina pectoris (Resolved) I25.118 Hyperlipidemia (Chronic) E78.5 Hypertension (Chronic) I10 Obstructive sleep apnea (Chronic) G47.33 On CPAP Right bundle branch block (Chronic) I45.10 Chronic anticoagulation (Resolved) Z79.01 STEMI (ST elevation myocardial infarction) (Resolved) I21.3 - Past Surgical History Surgical History: Past Surgical History (Last Reviewed 08/01/19 @ 10:05 by Sherron Chaparro) Status post ligation of left atrial appendage (Chronic) Onset Date: 06/16/19 Z98.890 H[place]INGTON to LAD, free NATALIE to ramus branch, reverse SVG to diagonal, to OM and to PDA; with bilateral pulmonary vein isolation with Atricure radiofrequency clamp and exclusion of left atrial appendage 06/16/[address] 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 Piyush Tidwell, [facility] Stented coronary artery (Chronic) Onset Date: 04/10/19 Z95.5 Segmented LV systolic dysfunction- Moderate; LVEF: by LV gram 45 %; Elevated Left Ventricular End Diastolic Pressure; Triple vessel CAD of the LM, LAD, LCX, RCA and PDA. Successful PTCA/PRADEEP distal RCA with a 3.0 x 16 Promus Synergy, post dilated with a 3.0 x 8 NC Balloon; 90%-->0%, no dissection or plaque shift into ostial PDA> Unable to cannulate PDA with multiple wires so no PCI of PDA performed. Will leave for CABG vs elective PCI in the future. Hx of knee surgery Z98.890 Bilateral repair Surgical History: noncontributory, - - Bilateral repair of torn quadriceps for Antonio muscles by Dr. Nick Soares. - Family History Summary Family History: Family History (Last Reviewed 08/01/19 @ 10:05 by Sherron Chaparro) Father , of vascular complications CAD (coronary artery disease) Myocardial infarction, Onset Age: 60 Grandmother , in her 50's Myocardial infarction Sudden cardiac CAD (coronary artery disease) Social History - Smoking History Smoking Status: Never smoker - Alcohol Use Alcohol Usage: No - Substance Abuse Hx Substance Use: No - Occupation Occupation (List type of work in comments):: Retired - Hobbies, Recreation, Social Activities Hobbies: Watch TV Recreational Activities: I am able to engage in most, but not all activities Social Environment - Status Marital Status: - Current Living Arrangements Living Environment:: Spouse - Children How many children do you have?: 4 Do any of your children live nearby?: Yes - Safety Do you feel safe in your surroundings?: Yes - Assistance Do you need any assistance at home?: NONE Review of Systems - Review of Systems Hints: Right click = Denies (Slash). Left click = Reports (Pioneer) Review of Present Symptoms: Reports: Shortness of Breath with Exertion - SLIGHT SOB WITH EXCERTION, Wound Healing - EXCISION SITE WELL APPROXIMATED WITHOUT REDNESS, Fatigue, Heart Arrhythmia/Irregularities - HX OF A FIBRILLATION, Appetite - Normal, Appetite - Special Diet - HEART HEATHY, Sleep - Normal. Denies: Shortness of Breath at Rest, PVD, Operative Discomfort, Angina, Dizziness/Lightheadedness - Pain Is Patient Pain Free?: Yes Risk Factor Assessment - Chief Complaint Chief Complaint: CURRENT PCI PT WHO PRESENTS TODAY FOR CR FOR INITIAL EVALUATION - Vital Signs Temperature: 98.6 F Respiratory Rate: 16 Pulse Ox: 96 Blood Pressure: 128/68 Nailbeds:: PINK - Pulse Pulse Rate: 63 Pulse Rhythm: Regular - Hypertension How long have you been treated?: APPROX 2 YEARS On medication(s)?: YES, METOPROLOL - Stress Stress: Recent, Long-standing, Home/Family - 'ESTATE' ISSUES/FAMILY. WELL HIS OWN HEALTH - Blood Cholesterol/Lipids Total Cholesterol (mg/dL) Goal = less than 200 mg/dL: 150 HDL Cholesterol (mg/dL) Goal = less than 40 mg/dL: 41 LDL Cholesterol (mg/dL) Goal = less than 70 mg/dL: 152 Triglycerides (mg/dL) Goal = less than 150 mg/dL: 114 - Diabetes Nutrition Referral for Diabetes: No - Obesity Height: 6 ft 2 in Weight:: 241 lb Weight in Pounds: 241.0 lbs Body Mass Index (BMI): 30.9 - Physical Inactivity Physical Inactivity: Recreational activity - Risk Stratification Risk Guidelines: Lowest Risk: Risk Factor for Smoking, Risk Factor for Diabetes, Moderate Risk: Risk Factor for Dyslipidemia, Risk Factor for Hypertension, Risk Factor for Sedentary Lifestyle, Risk Factor for Depression - TAKES CYMBALTA, Highest Risk: Risk Factor for Obesity - For Smoking Smoking Risk Guidelines: Smoking Low Risk: None or quit greater than 6 months ago. Smoking Moderate Risk: Smoker or quit 6 months or less ago. Smoking High Risk: Smoker - For Dyslipidemia Dyslipidemia Risk Guidelines: Low Risk: Moderate Risk: High Risk: 15-25% fat 25.1-29% fat >/= 30% fat. <7% sat fat 7-9% sat fat >9% sat fat. <150 mg chol 150-299 mg chol >/= 300 mg chol. LDL <100 LDL 100-129 LDL >/= 130. Chol/HDL ratio <5.0 Chol/HDL ratio 5.0-6.0 Chol/HDL ratio >6.0. Triglycerides <100 Triglycerides 100- 149 Triglycerides >/= 150 - For Diabetes Mellitus Diabetes Risk Guidelines: Diabetes Low Risk: HgA1c <6.5% and/or FBG <120. Diabetes Moderate Risk: HgA1c 6.6-7.9% and/or FBG 120-180. Diabetes High Risk: HgA1c >/= 8% and/or FBG >180 - For Obesity/Overweight Obesity/Overweight Risk Guidelines: Obesity Low Risk: BMI <25.0. Obesity Moderate Risk: BMI 25-29.9. Obesity High Risk: BMI >/= 30.0 - For Hypertension Hypertension Risk Guidelines: Hypertension Low Risk: Systolic <120 and Diastolic <80. Hypertension Moderate Risk: Systolic 120-139 and Diastolic 80-89. Hypertension High Risk: Systolic >/= 140 and Diast olic >/= 90 - For Sedentary Lifestyle Sedentary Lifestyle Risk Guidelines: Sedentary Lifestyle Low Risk: >/= 1,500 kcal/week. Sedentary Lifestyle Moderate Risk: 700-1,499 kcal/week. Sedentary Lifestyle High Risk: < 700 kcal/week - For Depression Depression Risk Guidelines: Depression Low Risk: Not clinically depressed. Depression Moderate Risk: Mildly depressed. Depression High Risk: Clinically depressed - Family History Family History: Family History (Last Reviewed 08/01/19 @ 10:05 by Sherron Chaparro) Father CAD (coronary artery disease) Myocardial infarction, Onset Age: 60 Grandmother Myocardial infarction Sudden cardiac CAD (coronary artery disease) Motivation - Motivation to Participate On a scale of 1 to 10, how prepared are you to commit to attending program?: 10 What do you see as barriers to successfully being able to complete the program?: NONE What do you see as the benefits of succesfully completing the program? In other words, what do you hope to get out of participating in the program?: MORE STAMINA AND STRENGHT, NOT BE SO TIRED Are there issues you are dealing with that will interfere with completing the program?: NONE Do you have a spouse or signficant other, family or friends who will help support you to complete the program?: SPOUSE
--- NOTE | 2019-08-08 12:22 | PCM.CR.ITP ---
General Information - General Information Admitting Diagnosis: PCI WITH STENT - Education/Goals Barriers to Learning: None Cardiac Rehabilitation Goals: 1. Maintain the individual as the primary focus of care. 2. To improve the patient's quality of life. 3. Identification of cardiac risk factors and provide cardiac risk factor management. 4. Enhance the psychosocial status of the patient. 5. Reconditioning enough to allow the patient to resume customary activities. 6. Control symptoms of cardiac disease Scale for measuring improvement of personal goals: Enter appropriate number in Comments. 2 = Unchanged. 3 = Slightly Better. 4 = Moderate Improvement. 5 = Met my Goal Tobacco - Initial Assessment - Program Goals Tobacco Program Goals: Complete smoking cessation. Attend education classes. Improve Knowledge Test score - Learning Barriers Learning Barriers: Ready to Learn Psychosocial - Initial Assess - Target Goals Target Goals: Assess presence or absence of depression. Using a valid screening tool, maximizes coping skills. Positive support system - Psychosocial Test Tool Used:: HANDS Depression Questionnaire - Assistive Devices Fall Risk Assessed:: Yes
[2019-08-08 13:09] VITALS: BP 128/68; PULSE 63; RESP 16; TEMP 37; O2SAT 96; BMI 30.9
[2019-08-08 13:37] VITALS: BP 128/68
== END ==
PROVIDERS: Referring Provider Internal Medicine Cardiovascular Disease; Visit Provider Internal Medicine Cardiovascular Disease
DX: I25.118 Atherosclerotic heart disease of native coronary artery with other forms of angina pectoris (principal); I48.0 Paroxysmal atrial fibrillation; I25.5 Ischemic cardiomyopathy; I25.2 Old myocardial infarction; E78.5 Hyperlipidemia, unspecified; I10 Essential (primary) hypertension; G47.33 Obstructive sleep apnea (adult) (pediatric); I45.10 Unspecified right bundle-branch block; Z95.5 Presence of coronary angioplasty implant and graft; Z79.01 Long term (current) use of anticoagulants; Z79.82 Long term (current) use of aspirin; Z79.899 Other long term (current) drug therapy

== ENCOUNTER 2019-08-23 15:15 | Outpatient (RCR) | payer MEDICARE, SELFPAY ==
[2019-04-12 15:03] VITALS: BMI 32.7
[2019-08-08 13:09] VITALS: BMI 30.9
== END 2019-08-24 23:59 ==
LOC: CR 15:15
PROVIDERS: Referring Provider Internal Medicine Cardiovascular Disease; Visit Provider Internal Medicine Cardiovascular Disease
DX: I25.10 Atherosclerotic heart disease of native coronary artery without angina pectoris (principal); I25.5 Ischemic cardiomyopathy; E00.1 Congenital iodine-deficiency syndrome, myxedematous type; I48.0 Paroxysmal atrial fibrillation; I25.2 Old myocardial infarction; Z95.1 Presence of aortocoronary bypass graft; Z95.5 Presence of coronary angioplasty implant and graft; Z98.890 Other specified postprocedural states
CPT/HCPCS: 93798

== ENCOUNTER 2019-09-20 15:15 | Outpatient (RCR) | payer MEDICARE, SELFPAY ==
[2019-04-12 15:03] VITALS: BMI 32.7
[2019-08-08 13:09] VITALS: BMI 30.9
--- NOTE | 2019-09-08 08:33 | CR.ITP_ITS ---
Exercise - 30-day Assessment - Visit Date of Eval: 09/08/19 Session #:: 10 - started CR on 08/14/2019 - Stages of Change Stages of Change:: Action - Physician Prescribed Exercise Modalities: Treadmill, Rower, Airdyne, NuStep Frequency (days/week): 3 Duration (Minutes):: 30-45 Intensity: 60-80% age predicted maximum heart rate reserve METs - Progression: 0.5-1.0 MET, RPE 11-14 WEEK: 5.5 increase from 3.5 METs Target Heart Rate:: 96-126 w/max HR 104 - Hypertension Resting Blood Pressure:: 132/64 Peak Exercise Blood Pressure:: 140/84 Medication Changes:: No - Intervention Home Exercise/Activity Goal:: Moderate Exercise 30 min/day x 5 days/wk - Education Goals:: Warm-up, RPE BERNARDA Scale, S/S, Safe Exercise, Self-Monitoring - Exercise Program Goals Exercise Program Goals: Aerobic Activity >30 min Nutrition - 30-Day Assessment - Program Goals Nutrition Program Goals: LDL <70. Total Cholesterol <200. HDL >45. Triglycerides <150. HgbA1C <7%. BMI <25 - Visit Date of Eval: 09/08/19 - Stages of Change Stages of Change:: Action - Lipids Has the patient seen the dietitian?: Yes - Diabetes Diabetes:: No Insulin: No Non-Insulin Dependent?: No - Weight Management Weight:: 238 lb - down from 241 - Intervention Referral to dietitian:: No Referral to Diabetic Clinic:: No Will attend diet classes:: Yes - Education Attended class for:: Healthy eating Tobacco - Initial Assessment - Program Goals Tobacco Program Goals: Complete smoking cessation. Attend education classes. Improve Knowledge Test score - Learning Barriers Learning Barriers: Ready to Learn Tobacco - 30-Day Assessment - Program Goals Tobacco Program Goals: Complete smoking cessation. Attend education classes. Improve Knowledge Test score - Stage of Change Stages of Change:: Action - Learning Barriers Learning Barriers: Participates in education, Change in behavior - Family Support Do you have family support?: Yes - Tobacco Use Tobacco Use: Non-smoker Do you use smokeless tobacco?: No - Intervention Smoking Cessation Referral:: No Individual Education/Counseling:: No Education Schedule Given:: Yes - Education Attended class for:: Treating Heart Disease, How The Heart Works, Stress Ma nagement & Relaxation, Sleep Disorders & Heart Disease Psychosocial - Initial Assess - Target Goals Target Goals: Assess presence or absence of depression. Using a valid screening tool, maximizes coping skills. Positive support system - Psychosocial Test Tool Used:: HANDS Depression Questionnaire - Assistive Devices Fall Risk Assessed:: Yes Psychosocial - 30-Day Assess - Target Goals Target Goals: Assess presence or absence of depression. Using a valid screening tool, maximizes coping skills. Positive support system - Stages of Change Stages of Change:: Action - Psychosocial Test Tool Used:: HANDS Depression Questionnaire - Intervention PS - Interventions: Yes Attend Stress Management Classes, No Referral to Mental Health, No Referral to [facility] Case Management, No Referral to Physician, No Uses Stress Management Skills - Education Attended classes for:: Coping techniques, Signs & symptoms of depression, Stress management, Relaxation techniques - Patient/Program Goal Preventative Medication(s):: Aspirin - patient reports taking medications as prescribed., JOVANY inhibitor, Clopidogrel, Beta felicitas, Statin/lipid - Assistive Devices Assistive Devices:: None Fall Risk Assessed:: Yes Patient Health Questionnaire 30-Day Re-eval Assessment 1. Little interest or pleasure in doing things: Not at all 2. Feeling down, depressed, or hopeless: Not at all 3. Trouble falling or staying asleep, or sleeping too much: Not at all 4. Feeling tired or having little energy: Not at all 5. Poor appetite or overeating: Not at all 6. Feeling bad about yourself -- or that you are a failure or have let yourself or your family down: Not at all 7. Trouble concentrating on things, such as reading the newspaper or watching television: Not at all 8. Moving or speaking so slowly that other people could have noticed. Or the opposite - being so fidgety or restless that you have been moving around a lot more than usual: Not at all 9. Thoughts that you would be better off , or of hurting yourself in some way: Not at all Total Score: 0 Self-Efficacy 30-Day Re-eval Assessment We would like to know how confident you are in doing certain activities. Please select your confidence level for:: Select your confidence level for the following using the scale 1-10 where 1 is not at all confident and 10 is totally confident. Your score is the average of all 6 responses. Fatigue: How confident are you that you can keep the fatigue caused by your disease from interfering with the things you want to do? Select Number: 7 Physical Discomfort or Pain: How confident are you that you can keep the physical discomfort or pain of your disease from interfering with the things you want to do? Select Number: 8 Emotional Distress: How confident are you that you can keep the emotional distress caused by your disease from interfering with the things you want to do? Select Number: 9 Other Symptoms or Health Problems: How confident are you that you can keep other symptoms or health problems from interfering with the things you want to do? Select Number: 9 Different Tasks and Activities: How confident are you that you can do the different tasks and activities needed to manage your health condition so as to reduce your need to see a doctor? Select Number: 9 Medication: How confident are you that you can do things other than just taking medication to reduce how much your illness affects your everyday life? Select Number: 10 Total Score:: 8
[2019-09-08 08:37] VITALS: BP 132/64; BP 140/84
== END 2019-09-23 23:59 ==
LOC: CR 15:15
PROVIDERS: Referring Provider Internal Medicine Cardiovascular Disease; Visit Provider Internal Medicine Cardiovascular Disease
DX: I25.10 Atherosclerotic heart disease of native coronary artery without angina pectoris (principal); I25.5 Ischemic cardiomyopathy; R00.1 Bradycardia, unspecified; I48.0 Paroxysmal atrial fibrillation; I25.2 Old myocardial infarction; Z95.1 Presence of aortocoronary bypass graft; Z95.5 Presence of coronary angioplasty implant and graft; Z98.890 Other specified postprocedural states
CPT/HCPCS: 93798

== ENCOUNTER 2019-10-20 15:15 | Outpatient (RCR) | payer MEDICARE, SELFPAY ==
[2019-04-12 15:03] VITALS: BMI 32.7
[2019-08-08 13:09] VITALS: BMI 30.9
[2019-09-24 01:04] VITALS: BP 132/64; BP 140/84
--- NOTE | 2019-10-09 08:28 | CR.ITP_ITS ---
Exercise - 60-Day Assessment - Visit Date of Eval: 10/09/19 Session #:: 22 - STARTED 08/14/2019 NOT MISSED ANY SESSIONS. - Stages of Change Stages of Change:: Action - Physician Prescribed Exercise Modalities: Treadmill, Rower, Airdyne, NuStep Frequency (days/week): 3 Duration (Minutes):: 30-45 Intensity: 60-80% age predicted maximum heart rate reserve METs - Progression: 0.5-1.0 MET, RPE 11-14 WEEK: 6 INCREASED FROM 5.0 Target Heart Rate:: 96-126 MAX HR 98 - Hypertension Resting Blood Pressure:: 128/64 Peak Exercise Blood Pressure:: 132/74 Medication Changes:: No - Intervention Home Exercise/Activity Goal:: Moderate Exercise 30 min/day x 5 days/wk - Education Goals:: Warm-up, RPE BERNARDA Scale, S/S, Safe Exercise, Self-Monitoring - Exercise Program Goals Exercise Program Goals: Aerobic Activity >30 min Nutrition - 60-Day Assessment - Program Goals Nutrition Program Goals: LDL <70. Total Cholesterol <200. HDL >45. Triglycerides <150. HgbA1C <7%. BMI <25 - Visit Date of Eval: 10/09/19 - Stages of Change Stages of Change:: Action - Lipids Has the patient seen the dietitian?: No - Diabetes Diabetes:: No Insulin: No Non-Insulin Dependent?: No - Weight Management Weight:: 239 lb - STABLE - Intervention Referral to dietitian:: No Referral to Diabetic Clinic:: No Will attend diet classes:: Yes - Education Attended class for:: Healthy eating Tobacco - Initial Assessment - Program Goals Tobacco Program Goals: Complete smoking cessation. Attend education classes. Improve Knowledge Test score - Learning Barriers Learning Barriers: Ready to Learn Tobacco - 60-Day Assessment - Program Goals Tobacco Program Goals: Complete smoking cessation. Attend education classes. Improve Knowledge Test score - Stage of Change Stages of Change:: Action - Learning Barriers Learning Barriers: Participates in education - Family Support Do you have family support?: Yes - Tobacco Use Tobacco Use: Non-smoker Do you use smokeless tobacco?: No - Intervention Smoking Cessation Referral:: No Individual Education/Counseling:: No Education Schedule Given:: Yes - Education Attended class for:: Treating Heart Disease, How The Heart Works, What it means to have Heart Disease, How Coronary Artery Disease is Diagnosed, Heart Procedures, What Heart Medications Do, Risk Factors & Modifications, Sleep Disorders & Heart Disease Psychosocial - Initial Assess - Target Goals Target Goals: Assess presence or absence of depression. Using a valid screening tool, maximizes coping skills. Positive support system - Psychosocial Test Tool Used:: HANDS Depression Questionnaire - Assistive Devices Fall Risk Assessed:: Yes Psychosocial - 60-Day Assess - Target Goals Target Goals: Assess presence or absence of depression. Using a valid screening tool, maximizes coping skills. Positive support system - Stages of Change Stages of Change:: Action - Psychosocial Test Tool Used:: HANDS Depression Questionnaire - Intervention PS - Interventions: Yes Attend Stress Management Classes, Yes Uses Stress Management Skills, No Referral to Mental Health, No Referral to [facility] Case Management, No Referral to Physician - Education Attended classes for:: Coping techniques, Signs & symptoms of depression, Stress management, Relaxation techniques - Patient/Program Goal Preventative Medication(s):: Aspirin - PATIENT REPORTS TAKING MEDICATIONS PRESCRIBED., JOVANY inhibitor, Clopidogrel, Beta felicitas, Statin/lipid - Assistive Devices Assistive Devices:: None Fall Risk Assessed:: Yes Patient Health Questionnaire 60-Day Re-eval Assessment 1. Little interest or pleasure in doing things: Not at all 2. Feeling down, depressed, or hopeless: Not at all 3. Trouble falling or staying asleep, or sleeping too much: Not at all 4. Feeling tired or having little energy: Not at all 5. Poor appetite or overeating: Not at all 6. Feeling bad about yourself -- or that you are a failure or have let yourself or your family down: Not at all 7. Trouble concentrating on things, such as reading the newspaper or watching television: Not at all 8. Moving or speaking so slowly that other people could have noticed. Or the opposite - being so fidgety or restless that you have been moving around a lot more than usual: Not at all 9. Thoughts that you would be better off , or of hurting yourself in some way: Not at all Total Score: 0 Self-Efficacy 60-Day Re-eval Assessment We would like to know how confident you are in doing certain activities. Please select your confidence level for:: Select your confidence level for the following using the scale 1-10 where 1 is not at all confident and 10 is totally confident. Your score is the average of all 6 responses. Fatigue: How confident are you that you can keep the fatigue caused by your disease from interfering with the things you want to do? Select Number: 10 Physical Discomfort or Pain: How confident are you that you can keep the physical discomfort or pain of your disease from interfering with the things you want to do? Select Number: 10 Emotional Distress: How confident are you that you can keep the emotional distress caused by your disease from interfering with the things you want to do? Select Number: 10 Other Symptoms or Health Problems: How confident are you that you can keep other symptoms or health problems from interfering with the things you want to do? Select Number: 10 Different Tasks and Activities: How confident are you that you can do the different tasks and activities needed to manage your health condition so as to reduce your need to see a doctor? Select Number: 10 Medication: How confident are you that you can do things other than just taking medication to reduce how much your illness affects your everyday life? Select Number: 10 Total Score:: 10
[2019-10-09 08:31] VITALS: BP 128/64; BP 132/74
== END 2019-10-24 23:59 ==
LOC: CR 15:15
PROVIDERS: Referring Provider Internal Medicine Cardiovascular Disease; Visit Provider Internal Medicine Cardiovascular Disease
DX: I25.10 Atherosclerotic heart disease of native coronary artery without angina pectoris (principal); I25.5 Ischemic cardiomyopathy; R00.1 Bradycardia, unspecified; I48.0 Paroxysmal atrial fibrillation; I25.2 Old myocardial infarction; Z95.1 Presence of aortocoronary bypass graft; Z95.5 Presence of coronary angioplasty implant and graft; Z98.890 Other specified postprocedural states
CPT/HCPCS: 93798

== ENCOUNTER → 2019-11-13 08:45 | Outpatient (CLI) | payer MEDICARE, SELFPAY ==
[2019-04-12 15:03] VITALS: BMI 32.7
[2019-08-08 13:09] VITALS: BMI 30.9
--- NOTE | 2019-11-13 08:46 | ECHOCS_ITS ---
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 The study was technically difficult. Contrast injection was performed. Exam performed in department. Left Ventricle Moderate concentric left ventricular hypertrophy. Mildly dilated left ventricle. The estimated ejection fraction is 40-45 %. Stage 2 diastolic dysfunction. Basal inferoseptal: Mildly hypokinetic. Posterior-Basal: Mildly hypokinetic. Right Ventricle Normal size and thickness. Normal systolic function. Atria The left atrium is moderately enlarged. Normal right atrium. Normal atrial septum. Mitral Valve Mild diffuse mitral valve thickening. Mild (1+) posteriorly directed mitral valve insufficiency. Tricuspid Valve Normal tricuspid valve. Trivial tricuspid valve insufficiency. Right ventricular systolic pressure estimated to be 27 mmHg. Aortic Valve Normal aortic valve. Trisinus/trileaflet aortic valve. Trivial aortic valve insufficiency. Pulmonic Valve The pulmonic valve is not well visualized. Great Vessels Normal aortic root. Normal arch. Normal inferior vena cava. Inferior vena cava collapse with sniff. Pericardium/Pleural No pericardial effusion. Medication 22 gauge I.V. with prn adaptor inserted into left arm. Diluted definity 3ml given slow IV push to enhance endocardial definition. MMode/2D Measurements & Calculations LVIDd: 5.0 cm IVSd: 1.5 cm Ao root diam: 3.7 cm LVIDs: 4.4 cm LVPWd: 1.3 cm LA dimension: 4.9 cm RVDd: 3.9 cm FS: 12.5 % LAV(MOD-bp): 92.1 ml LVAd ap4: 46.7 cm2 SV(MOD-sp4): 101.4 ml LAV(MOD-bp) Indexed: 39.5 ml/m2 EDV(MOD-sp4): 199.1 ml LAV(MOD-sp2): 106.3 ml EDV(sp4-el): 204.7 ml LAV(MOD-sp4): 79.7 ml LVAs ap4: 29.6 cm2 ESV(MOD-sp4): 97.7 ml ESV(sp4-el): 99.5 ml EF(MOD-sp4): 50.9 % EF(sp4-el): 51.4 % SV(sp4-el): 105.2 ml LA A4 area: 24.0 cm2 RA A4 area: 15.5 cm2 Time Measurements MV dec time: 0.43 sec Doppler Measurements & Calculations MV E max patrick: 78.3 cm/sec Lat Peak E' Patrick: 9.4 cm/sec Med Peak E' Patrick: 5.9 cm/sec MV A max patrick: 34.6 cm/sec E/E' lat: 8.3 E/E' med: 13.3 MV E/A: 2.3 MV V2 max: 75.0 cm/sec MV P1/2t max patrick: 74.4 cm/sec Ao V2 max: 118.4 cm/sec MV max P.2 mmHg MV P1/2t: 181.3 msec Ao max P.6 mmHg MV V2 mean: 42.1 cm/sec Ao V2 mean: 82.7 cm/sec MV mean P.83 mmHg MV dec slope: 120.2 cm/sec2 Ao mean P.1 mmHg MV V2 VTI: 30.5 cm MVA(P1/2t): 1.2 cm2 Ao V2 VTI: 25.0 cm LV V1 max: 80.4 cm/sec MR max patrick: 587.7 cm/sec PA V2 max: 94.4 cm/sec LV V1 max P.6 mmHg MR max P.2 mmHg LV V1 mean P.3 mmHg MR mean patrick: 465.7 cm/sec LV V1 mean: 52.6 cm/sec MR mean P.3 mmHg LV V1 VTI: 18.5 cm MR VTI: 220.0 cm TR max patrick: 234.0 cm/sec TR max P.9 mmHg Interpretation Summary , oderate concentric left ventricular hypertrophy. Mildly dilated left ventricle. The estimated ejection fraction is 40-45 %. Stage 2 diastolic dysfunction. Basal inferoseptal: Mildly hypokinetic Posterior-Basal: Mildly hypokinetic The left atrium is moderately enlarged. Mild (1+) posteriorly directed mitral valve insufficiency. Trivial tricuspid valve insufficiency. Right ventricular systolic pressure estimated to be 27 mmHg. Trivial aortic valve insufficiency. Compared to echo report dated 04/10/19, LV function is about the same, but RVSP has improved from 32 to 27mm Hg. The study was technically difficult. Contrast injection was performed. Ordering Physician: Johnny Pantoja Referring Physician: Cristhian Coyle Performed By: Keyon Alcantara RCS
[2019-11-13 11:13] LABS: AST(SGOT) 39 U/L (15-37); Alanine Aminotransfer ALT/SGPT 46 U/L (16-61); Albumin, Serum 3.6 g/dL (3.2-5.0); Alkaline Phosphatase 61 U/L (45-117); Bilirubin, Direct 0.21 mg/dL (0.00-0.30); Cholesterol 95 mg/dL (200); Globulin 3.8 g/dL (2.2-4.2); High Density Lipoprotein 40 mg/dL; Protein, Total 7.4 g/dL (6.4-8.2); Triglycerides 77 mg/dL; Very Low Density Lipoprotein 15 mg/dL (5-40)
== END ==
PROVIDERS: Referring Provider Internal Medicine Cardiovascular Disease; Visit Provider Internal Medicine Cardiovascular Disease
DX: I25.10 Atherosclerotic heart disease of native coronary artery without angina pectoris (principal); Z95.1 Presence of aortocoronary bypass graft; I25.5 Ischemic cardiomyopathy; E78.5 Hyperlipidemia, unspecified
CPT/HCPCS: 36415; 80061; 80076; 93306; Q9957; A4216; C8929

== ENCOUNTER → 2020-04-15 10:40 | Outpatient (CLI) | payer MEDICARE, SELFPAY ==
[2019-04-12 15:03] VITALS: BMI 32.7
[2019-08-08 13:09] VITALS: BMI 30.9
[2020-04-15 11:55] LABS: AST(SGOT) 32 U/L (15-37); Alanine Aminotransfer ALT/SGPT 41 U/L (16-61); Albumin, Serum 3.7 g/dL (3.2-5.0); Alkaline Phosphatase 68 U/L (45-117); Cholesterol 109 mg/dL (200); Globulin 3.6 g/dL (2.2-4.2); High Density Lipoprotein 41 mg/dL; Protein, Total 7.3 g/dL (6.4-8.2); Triglycerides 74 mg/dL; Very Low Density Lipoprotein 15 mg/dL (5-40)
== END ==
PROVIDERS: PCP Family Medicine; Referring Provider Internal Medicine Cardiovascular Disease; Visit Provider Internal Medicine Cardiovascular Disease
DX: E78.00 Pure hypercholesterolemia, unspecified (principal); E78.5 Hyperlipidemia, unspecified
CPT/HCPCS: 36415; 80061; 80076

== ENCOUNTER → 2020-04-17 10:49 | Outpatient (CLI) | payer MEDICARE, OTHER, SELFPAY ==
[2019-04-12 15:03] VITALS: BMI 32.7
[2019-08-08 13:09] VITALS: BMI 30.9
--- NOTE | 2020-04-17 10:59 | ECHOCS_ITS ---
Reason For Study: MURMUR Procedure This was a 2D Doppler, Color Flow transthoracic echocardiogram. The study was technically difficult. Due to body habitus. Contrast injection was performed. Exam performed in department. Left Ventricle Mild concentric left ventricular hypertrophy. Moderately dilated left ventricle. The estimated ejection fraction is 45 %. Posterior-Basal: Mildly hypokinetic. Infero-Basal: Mildly hypokinetic. Right Ventricle Moderately dilated right ventricle. Mild global right ventricular systolic dysfunction. Atria The left atrium is severely enlarged. Normal right atrium. Normal atrial septum. Mitral Valve Mild diffuse mitral valve thickening. Mild-Moderate (1-2+) eccentric mitral valve insufficiency. Tricuspid Valve Normal tricuspid valve. Mild (1+) tricuspid valve insufficiency. Right ventricular systolic pressure estimated to be 64 mmHg. Severe pulmonary hypertension. Aortic Valve Trisinus/trileaflet aortic valve. Mild diffuse aortic valve thickening. Trivial aortic valve insufficiency. Pulmonic Valve The pulmonic valve is not well visualized. Great Vessels Normal aortic root. Normal arch. The inferior vena cava is dilated. No collapse of the inferior vena cava. Pericardium/Pleural No pericardial effusion. Medication 22 gauge I.V. with prn adaptor inserted into left arm. Diluted definity 3.0ml given slow IV push to enhance endocardial definition. MMode/2D Measurements & Calculations LVIDd: 6.5 cm IVSd: 1.3 cm Ao root diam: 3.9 cm LVIDs: 4.9 cm LVPWd: 1.3 cm RVDd: 4.3 cm FS: 23.6 % LAV(MOD-bp): 125.8 ml LA A4 area: 32.0 cm2 LA dimension(2D): 5.5 cm LAV(MOD-bp) Indexed: 54.0 ml/m2 LAV(MOD-sp2): 125.1 ml LAV(MOD-sp4): 125.7 ml RA A4 area: 17.3 cm2 Time Measurements MV dec time: 0.21 sec Doppler Measurements & Calculations MV E max patrick: 76.0 cm/sec Lat Peak E' Patrick: 9.6 cm/sec Med Peak E' Patrick: 4.8 cm/sec MV A max patrick: 52.2 cm/sec E/E' lat: 7.9 E/E' med: 15.9 MV E/A: 1.5 Ao V2 max: 112.9 cm/sec LV V1 max: 89.3 cm/sec PA V2 max: 79.8 cm/sec Ao max P.1 mmHg LV V1 max P.2 mmHg Ao V2 mean: 85.7 cm/sec LV V1 mean P.2 mmHg Ao mean P.2 mmHg LV V1 mean: 71.1 cm/sec Ao V2 VTI: 26.4 cm LV V1 VTI: 20.4 cm TR max patrick: 379.7 cm/sec TR max P.4 mmHg Interpretation Summary Mild concentric left ventricular hypertrophy. Moderately dilated left ventricle. The estimated ejection fraction is 45 %. Posterior-Basal: Mildly hypokinetic Infero-Basal: Mildly hypokinetic Moderately dilated right ventricle. Mild global right ventricular systolic dysfunction. The left atrium is severely enlarged. Mild-Moderate (1-2+) eccentric mitral valve insufficiency. Mild (1+) tricuspid valve insufficiency. Right ventricular systolic pressure estimated to be 64 mmHg. Severe pulmonary hypertension. Trivial aortic valve insufficiency. The inferior vena cava is dilated Echo report dated 11/13/2019, LV function has remained about the same slightly improved from 45 to 50%, slightly improved, but RVSP is increased from 27 to 64 mmHg. The study was technically difficult. Contrast injection was performed. Ordering Physician: Grant Frances Referring Physician: Grant Frances Performed By: Shelbie Ambrose, COURTNEY, RVT
== END ==
PROVIDERS: PCP Family Medicine; Referring Provider Family Medicine; Visit Provider Family Medicine
DX: R01.1 Cardiac murmur, unspecified (principal)
CPT/HCPCS: 93306; Q9957; A4216; C8929

== ENCOUNTER → 2020-06-13 09:46 | Outpatient (CLI) | payer MEDICARE, SELFPAY ==
[2019-04-12 15:03] VITALS: BMI 32.7
[2020-05-03 11:18] VITALS: BMI 31.6
--- NOTE | 2020-06-13 14:04 | PFTCOMP ---
COMPLETE PULMONARY FUNCTION TEST INTERPRETATION Brief HPI: Patient is a 74 year old male, currently under the care of Dr. aPntoja, who presents to [facility] for complete pulmonary function tests secondary to diagnosis of paroxysmal A. fib. Respiratory therapist reports good effort and reproducible results. Interpretation: Forced expiration spirometry shows no large airways obstructive ventilatory defect with an FEV1 of 71% predicted. There is no significant bronchodilator response by strict ATS criteria. Spirograms are of good quality and plateau slowly, indicating slowly emptying areas of the lungs. The respiratory flow volume loop shows decreased expiratory flow rates at high lung volumes consistent with small airways obstruction. Lung volumes by body plethysmography show a normal total lung capacity at 7.81 L, 105% predicted. All other lung volumes are within normal limits. Diffusion capacity by carbon monoxide is decreased at 50% predicted. The airway resistance is elevated. No previous pulmonary function tests were available for review. Impression: Isolated reduction in diffusing capacity consistent with a pulmonary vascular disorder.
== END ==
PROVIDERS: PCP Family Medicine; Referring Provider Internal Medicine Cardiovascular Disease; Visit Provider Internal Medicine Cardiovascular Disease
DX: I48.0 Paroxysmal atrial fibrillation (principal)
CPT/HCPCS: 94060; 94726; 94729

== ENCOUNTER → 2020-06-18 12:07 | Outpatient (CLI) | payer MEDICARE, SELFPAY ==
[2019-04-12 15:03] VITALS: BMI 32.7
[2020-06-18 09:25] VITALS: BMI 32.3
[2020-06-18 13:29] LABS: AST(SGOT) 24 U/L (15-37); Alanine Aminotransfer ALT/SGPT 31 U/L (16-61); Albumin, Serum 3.6 g/dL (3.2-5.0); Alkaline Phosphatase 65 U/L (45-117); Bilirubin, Direct 0.41 mg/dL (0.00-0.30); Globulin 3.4 g/dL (2.2-4.2)
[2020-06-19 17:00] LABS: ANTINUCLEAR ANTIBODIES DIRECT Negative (Negative)
[2020-06-20 03:06] LABS: Cytoplasmic Ab (C-ANCA) <1:20 titer (Neg:<1:20)
[2020-06-20 10:17] LABS: CCP IgG Antibodies 6 units (0-19); Perinuclear Ab (P-ANCA) <1:20 titer (Neg:<1:20)
== END ==
PROVIDERS: PCP Family Medicine; Referring Provider Internal Medicine Critical Care Medicine; Visit Provider Internal Medicine Critical Care Medicine
DX: I27.20 Pulmonary hypertension, unspecified (principal)
CPT/HCPCS: 36415; 80076; 86038; 86200; 86225; 86235; 86256

== ENCOUNTER → 2020-07-23 10:49 | Outpatient (CLI) | payer MEDICARE, SELFPAY ==
[2019-04-12 15:03] VITALS: BMI 32.7
[2020-06-18 09:25] VITALS: BMI 32.3
[2020-07-23 11:15] VITALS: PULSE 55; PULSE 67; PULSE 73; PULSE 76; PULSE 81; PULSE 83; PULSE 88; O2SAT 91; O2SAT 92; O2SAT 93; O2SAT 94
--- NOTE | 2020-07-23 14:03 | PCM.PSN.6M ---
PSN 6 Minute Walk Test - 6 Minute Walk Test 6 Minute Walk Test: 6 Minute Walk Test PSN:6-Minute Walk Test Start: 07/23/20 11:22 Freq: Status: Active Protocol: [id number].6MINW Document 07/23/20 11:15 (Rec: 07/23/20 11:25 [id number]) 6 Minute Walk Test Date Performed 07/23/20 Time Performed 11:15 Height 6 ft 2 in Weight: 111.13 kg Weight in Pounds 245.[address]: Jamey Delgado FIO2 (% Oxygen) 21 Assistive device used: None Pre-test Oxygen Delivery Method Room Air Pulse Ox (%) 93 Pulse Rate (60-100 beats/min) 55 L Dyspnea Shawn Scale (0-10) 0 Exertion Shawn Scale (6-20) 6 1st minute Oxygen Delivery Method Room Air Pulse Ox (%) 94 Pulse Rate (60-100 beats/min) 83 2nd minute Oxygen Delivery Method Room Air Pulse Ox (%) 91 Pulse Rate (60-100 beats/min) 81 3rd minute Oxygen Delivery Method Room Air Pulse Ox (%) 91 Pulse Rate (60-100 beats/min) 73 4th minute Oxygen Delivery Method Room Air Pulse Ox (%) 91 Pulse Rate (60-100 beats/min) 83 5th minute Oxygen Delivery Method Room Air Pulse Ox (%) 91 Pulse Rate (60-100 beats/min) 88 6th minute Oxygen Delivery Method Room Air Pulse Ox (%) 92 Pulse Rate (60-100 beats/min) 76 Post-test Oxygen Delivery Method Room Air Pulse Ox (%) 91 Pulse Rate (60-100 beats/min) 67 Dyspnea Shawn Scale (0-10) 1 Exertion Shawn Scale (6-20) 7 Full Laps Walked 19 Partial Lap, Number of Tiles Walked 0 Total Distance Walked (ft) 1121 - Interpretation Interpretation: The patient was able to ambulate 1121 feet over the course of 6 minutes on room air with no assistive devices or breaks. The patient did experience significant desaturation as low as 91%. These findings are consistent with a respiratory limitation exercise tolerance. - Recommendations Recommendations: No supplemental oxygen is indicated at this time, but patient will need to be followed closely given level of desaturation.
== END ==
PROVIDERS: PCP Family Medicine; Referring Provider Internal Medicine Critical Care Medicine; Visit Provider Internal Medicine Critical Care Medicine
DX: I27.20 Pulmonary hypertension, unspecified (principal)
CPT/HCPCS: 94618

== ENCOUNTER → 2020-09-04 | Outpatient (CLI) | payer MEDICARE, SELFPAY ==
[2019-04-12 15:03] VITALS: BMI 32.7
[2020-07-31 07:59] VITALS: BMI 32.5
== END | disposition home or self-care (01) ==
LOC: LABSPEC 17:40
PROVIDERS: PCP Family Medicine; Referring Provider Family Medicine; Visit Provider Family Medicine
DX: U07.1 COVID-19 (principal)
CPT/HCPCS: 87635; U0003

== ENCOUNTER → 2020-11-13 09:50 | Outpatient (CLI) | payer MEDICARE, SELFPAY ==
[2019-04-12 15:03] VITALS: BMI 32.7
[2020-11-13 09:02] VITALS: BMI 33.7
--- NOTE | 2020-11-13 10:10 | RAD_ITS ---
STUDY: X-RAY CHEST REASON FOR EXAM: Male, 75 years old. amiodarone therapy -- NO CURRENT CHEST COMPLAINTS TECHNIQUE: Frontal and lateral views COMPARISON: 04/12/2019 FINDINGS: Sternotomy wires are noted. The lungs are clear and expanded. There is no demonstrated pleural abnormality. Normal size heart. Normal mediastinum and jeanne. Normal visualized pulmonary arteries. Normal visualized aortic arch and descending thoracic aorta. Degenerative changes of the thoracic spine. Normal visualized ribs, clavicles, and shoulders. There is no demonstrated abnormality of the visualized soft tissue structures of the upper abdomen. RAD/Chest PA and Lateral IMPRESSION: Normal x-ray examination of the chest. Electronically Signed: Vito Li DO at 22:37 EST Tel [phone], Service support ,
[2020-11-13 12:21] LABS: AST(SGOT) 33 U/L (15-37); Alanine Aminotransfer ALT/SGPT 46 U/L (16-61); Albumin, Serum 3.6 g/dL (3.2-5.0); Alkaline Phosphatase 67 U/L (45-117); Bilirubin, Direct 0.34 mg/dL (0.00-0.30); Cholesterol 107 mg/dL (200); Globulin 3.7 g/dL (2.2-4.2); High Density Lipoprotein 42 mg/dL; Protein, Total 7.3 g/dL (6.4-8.2); T4 Free Direct 1.18 ng/dL (0.76-1.46); Thyroid Stim Hormone (TSH) 2.88 uIU/mL (0.358-3.74); Triglycerides 61 mg/dL; Very Low Density Lipoprotein 12 mg/dL (5-40)
== END ==
PROVIDERS: PCP Family Medicine; Referring Provider Internal Medicine Cardiovascular Disease; Visit Provider Internal Medicine Cardiovascular Disease
DX: I25.10 Atherosclerotic heart disease of native coronary artery without angina pectoris (principal); E78.5 Hyperlipidemia, unspecified; I10 Essential (primary) hypertension; I25.5 Ischemic cardiomyopathy; I47.2 Ventricular tachycardia; I48.0 Paroxysmal atrial fibrillation; Z95.1 Presence of aortocoronary bypass graft; Z95.5 Presence of coronary angioplasty implant and graft; Z98.890 Other specified postprocedural states; R00.1 Bradycardia, unspecified
CPT/HCPCS: 36415; 71046; 80061; 80076; 84439; 84443

== ENCOUNTER → 2020-11-22 13:50 | Outpatient (CLI) | payer MEDICARE, SELFPAY ==
[2019-04-12 15:03] VITALS: BMI 32.7
[2020-11-13 09:02] VITALS: BMI 33.7
--- NOTE | 2020-11-22 13:52 | ECHOCS_ITS ---
Reason For Study: Murmur Procedure This was a 2D Doppler, Color Flow transthoracic echocardiogram. The study was technically difficult. Contrast injection was performed. Exam performed in department. Left Ventricle Moderately dilated left ventricle. Mild segmental systolic dysfunction (see wall motion). The estimated ejection fraction is 50 %. Diastolic function is indeterminate. Posterior-Basal: Hypokinetic. Infero-Basal: Hypokinetic. Mid-inferoseptal : Hypokinetic. Mid-anteroseptal : Hypokinetic. Septal Hope : Hypokinetic. Right Ventricle Normal RV size. Normal systolic function. Atria The left atrium is moderately enlarged. Normal right atrium. No doppler evidence for ASD. Mitral Valve There is no mitral annular calcification. Normal mitral valve. Mild (1+) mitral valve insufficiency. Tricuspid Valve Normal tricuspid valve. Trivial tricuspid valve insufficiency. Unable to estimate RV systolic pressure/pulmonary artery pressure due to technically difficult study. Aortic Valve Trisinus/trileaflet aortic valve. Normal aortic valve. Trivial aortic valve insufficiency. Pulmonic Valve The pulmonic valve is not well visualized. Trivial pulmonic valve insufficiency. Great Vessels The aortic root is not well visualized. Pericardium/Pleural No pericardial effusion. Medication 22 gauge I.V. with prn adaptor inserted into right arm. Diluted definity 4ml given slow IV push to enhance endocardial definition. MMode/2D Measurements & Calculations LVIDd: 6.3 cm IVSd: 1.1 cm LA dimension: 4.6 cm LVIDs: 5.0 cm LVPWd: 1.1 cm FS: 20.7 % LAV(MOD-bp): 109.9 ml LA A4 area: 26.7 cm2 RA A4 area: 15.0 cm2 LAV(MOD-bp) Indexed: 46.1 ml/m2 LAV(MOD-sp2): 121.7 ml LAV(MOD-sp4): 92.4 ml Time Measurements MV dec time: 0.49 sec Doppler Measurements & Calculations MV E max patrick: 45.9 cm/sec Lat Peak E' Patrick: 11.2 cm/sec Med Peak E' Patrick: 4.8 cm/sec MV A max patrick: 54.0 cm/sec E/E' lat: 4.1 E/E' med: 9.5 MV E/A: 0.85 MV V2 max: 71.0 cm/sec MV P1/2t max patrick: 62.7 cm/sec Ao V2 max: 103.4 cm/sec MV max P.0 mmHg MV P1/2t: 108.5 msec Ao max P.3 mmHg MV V2 mean: 41.6 cm/sec MV dec slope: 169.2 cm/sec2 MV mean P.80 mmHg MV V2 VTI: 24.9 cm MVA(P1/2t): 2.0 cm2 LV V1 max: 81.1 cm/sec PA V2 max: 88.0 cm/sec LV V1 max P.6 mmHg Interpretation Summary The study was technically difficult. Contrast injection was performed. Moderately dilated left ventricle. Mild segmental systolic dysfunction (see wall motion). The estimated ejection fraction is 50 %. The left atrium is moderately enlarged. Mild (1+) mitral valve insufficiency. Trivial tricuspid valve insufficiency. Trivial aortic valve insufficiency. Trivial pulmonic valve insufficiency. Unable to estimate RV systolic pressure/pulmonary artery pressure due to technically difficult study. Diastolic function is indeterminate. Ordering Physician: Grant Moran Referring Physician: Grant Frances Performed By: Keyon Alcantara RCS
== END ==
PROVIDERS: PCP Family Medicine; Referring Provider Internal Medicine Cardiovascular Disease; Visit Provider Internal Medicine Cardiovascular Disease
DX: I25.10 Atherosclerotic heart disease of native coronary artery without angina pectoris (principal); Z95.5 Presence of coronary angioplasty implant and graft; Z95.1 Presence of aortocoronary bypass graft; Z98.890 Other specified postprocedural states; I25.5 Ischemic cardiomyopathy; I48.0 Paroxysmal atrial fibrillation; I47.2 Ventricular tachycardia; E78.5 Hyperlipidemia, unspecified; I10 Essential (primary) hypertension
CPT/HCPCS: 93306; Q9957; A4216; C8929

== ENCOUNTER 2020-12-06 18:43 | Emergency (ER) | payer MEDICARE, SELFPAY ==
[2019-04-12 15:03] VITALS: BMI 32.7
[2020-11-13 09:02] VITALS: BMI 33.7
[2020-12-06 18:46] VITALS: BP 158/93; PULSE 78; RESP 19; TEMP 36.2; O2SAT 94; BMI 33.3
--- NOTE | 2020-12-06 18:53 | EKG12_ITS ---
Test Reason : CP Blood Pressure : / mmHG Vent. Rate : 070 BPM Atrial Rate : 070 BPM P-R Int : 188 ms QRS Dur : 130 ms QT Int : 462 ms P-R-T Axes : 050 -19 034 degrees QTc Int : 498 ms Normal sinus rhythm Non-specific intra-ventricular conduction block Inferior infarct , age undetermined Abnormal ECG Confirmed by EYAD ABEL, FELICITA ([id number]), writer editor MADISON BRADSHAW ([id number]) on 12/09/2020 11:47:02 A M Referred By: MARJ Confirmed By:SARAH CASTANO MD
[2020-12-06 19:08] LABS: Absolute Lymphocyte Count 1.35 X10^3/uL (0.83-4.51); Absolute Neutrophil Count 7.7 X10^3/uL (2.0-7.7); Basophil# 0.05 X10^3/uL; Basophil% 0.5 % (0-1); Eosinophil# 0.23 X10^3/uL; Eosinophils% 2.3 % (0-5); Hematocrit 47.8 % (40-54); Hemoglobin 16.5 g/dL (13.0-16.5); Lymphocyte # 1.35 X10^3/ul (4.0); Lymphocyte % 13.5 % (19-41); Mean Corp Hgb Conc 34.5 g/dL (32-36); Mean Corpuscular Hgb 31.3 pg (27.0-32.0); Mean Corpuscular Volume 90.7 fL (80-94); Mean Platelet Vol. 11.8 fl (6.2-12.0); Monocyte# 0.65 X10^3/uL; Monocyte% 6.5 % (0-10); NRBC Flagged by Analyzer 0 % (0-5); Neutrophil # 7.68 X10^3/uL (2.7-7.7); Neutrophil % 76.8 % (47-70); Platelet Count 149 K/mm3 (150-450); RBC Distribution Width CV 13.2 % (11.6-14.6); RBC Distribution Width SD 44.3 fl (35.1-43.9); Red Blood Count 5.27 M/mm3 (4.6-6.2)
--- NOTE | 2020-12-06 19:15 | RAD_ITS ---
STUDY: X-RAY CHEST REASON FOR EXAM: Male, 75 years old. Chest pain, hypertensive, extensive cardiac history TECHNIQUE: Single frontal view of the chest. COMPARISON: 11/13/2020 FINDINGS: There is persistent elevation of the right hemidiaphragm. There is no new focal consolidation. There are stable prominent interstitial markings. Sternal cerclage wires are present from a prior sternotomy. There is an atrial appendage clip in place. The cardiac silhouette is within normal limits. Normal mediastinum and jeanne. Normal visualized pulmonary arteries. Normal visualized aortic arch and descending thoracic aorta. Normal visualized thoracic spine. Normal visualized ribs, clavicles, and shoulders. There is no demonstrated abnormality of the visualized soft tissue structures of the upper abdomen. RAD/Chest 1 View (Portable) IMPRESSION: No acute cardiopulmonary process. Electronically Signed: Nohemi Stein MD at 19:29 EST Tel , Service support ,
[2020-12-06 19:26] VITALS: BP 156/79; PULSE 58; RESP 18; O2SAT 96
[2020-12-06 19:31] LABS: AST(SGOT) 83 U/L (15-37); Alanine Aminotransfer ALT/SGPT 68 U/L (16-61); Alkaline Phosphatase 99 U/L (45-117); Bilirubin, Direct 0.23 mg/dL (0.00-0.30); Globulin 3.8 g/dL (2.2-4.2); Lipase 84 U/L (73-393); Protein, Total 7.8 g/dL (6.4-8.2)
[2020-12-06 20:01] LABS: Anion Gap 4 (5-15); BUN 16 mg/dL (7-18); BUN/Creat Ratio 15.4 RATIO (10-20); Calcium,Total 9.1 mg/dL (8.5-10.1); Chloride 106 mmol/L (98-107); Creatinine, Serum 1.04 mg/dL (0.70-1.30); EST Glomerular Filtration Rate 74 mL/min (>60); Est Glom Filt Rate - Afr Amer 90 mL/min (>60); Estimated Creatinine Clearance 72.45 ml/min; Glucose 116 mg/dL (74-106); Potassium 4.5 mmol/L (3.5-5.1); Sodium Level 139 mmol/L (136-145)
--- NOTE | 2020-12-06 20:36 | ED.DCSUM_ITS ---
- ER Visit Summary Date of Service: 12/06/20 Chief Complaint: Chest pain History of Present Illness: The patient is a [address] Dean Garcia. He reports that approximately 2 hours ago he ate much quicker than he typically does. He ate a double cheeseburger fries, and a coke. He reports th at he had a substernal chest pain that began approximately 30 minutes later. States that the pain was like indigestion. He states that he made himself vomit and that the pain then resolved. Patient states that it felt like there was something caught in his esophagus. He has never had this before. Patient and his are concerned because during this his blood pressure was high. He does have a history of coronary disease, but reports that this is totally different than it was when he had that. He denies any abdominal pain. He denies any other complaints. He has never had endoscopy. Physical Examination: Vitals: Stable. Afebrile. General: Well-nourished and well-developed. Head: Normocephalic atraumatic. Neck: Supple, no lymphadenopathy. No JVD. Nontender. Cardiovascular: Regular rate and rhythm. No murmurs. Respiratory: No respiratory distress. Clear to auscultation bilaterally. Abdominal: Soft, nontender, nondistended, normal bowel sounds. No guarding, rebound, or peritoneal signs. Back: Nontender. Extremities: Nontender, no edema. Skin: Normal color, no rash. Neurologic: Alert and oriented ?3. Cranial nerves II through XII are intact. Normal strength and sensation. Psych: Normal affect. Test Results: EKG is sinus at 70 with nonspecific intraventricular conduction delay. This is unchanged from July 2019. Troponin is negative. LFTs show an ALT of 83 and AST of 68. His total bili is 1.5. His lipase is normal. His prior total bili has had been from 1.3?1.8 in 2019. Chem-7 shows a glucose 116. CBC shows platelets 149, second neutrophils 77, lymphocytes 14. Chest x-ray shows no acute disease. His right hemidiaphragm is elevated. Emergency Department Course and Treatment: Patient has remained comfortable while here and is able to swallow without any difficulty. Again he states it feels as though something got caught when he was swallowing because he ate too quickly. Treatment Plan: Patient will be discharged instructions to follow-up with Dr. Lo in 1 to 2 weeks for another exam. He is instructed to chew his food well and be careful eating beef or hotdogs. Return to the emergency department for any worsening symptoms. Disposition: To home in improved and stable condition. Impression: 1. Esophageal impaction, resolved. This note was generated with [employer] dictation software. It may contain incorrect words, spelling, and punctuation that were not noted in review of the chart prior to signing ED Disposition - Plan for ED Patient: Disposition: Home or Assisted Living Instructions: ED Esophageal Foreign Body, Resolved Referrals: Teresa Lo MD [STAFF PHYSICIAN] - 1-2 Weeks
[2020-12-06 20:48] VITALS: BP 156/76; PULSE 58; RESP 18; O2SAT 97
== END 2020-12-06 20:49 | disposition home or self-care (01) ==
LOC: ED 19:14
PROVIDERS: Emergency Provider Emergency Medicine; PCP Family Medicine
DX: R09.89 Other specified symptoms and signs involving the circulatory and respiratory systems (principal); I10 Essential (primary) hypertension; I25.10 Atherosclerotic heart disease of native coronary artery without angina pectoris; E78.00 Pure hypercholesterolemia, unspecified; I27.20 Pulmonary hypertension, unspecified; G47.33 Obstructive sleep apnea (adult) (pediatric); Z95.1 Presence of aortocoronary bypass graft; Z79.82 Long term (current) use of aspirin; Z79.899 Other long term (current) drug therapy
CPT/HCPCS: 36415; 71045; 80048; 80076; 83690; 84484; 85025; 93005; 99283

== ENCOUNTER → 2021-05-05 13:28 | Outpatient (CLI) | payer MEDICARE, SELFPAY ==
[2019-04-12 15:03] VITALS: BMI 32.7
[2021-02-03 12:51] VITALS: BMI 33.4
[2021-05-05 14:47] LABS: AST(SGOT) 44 U/L (15-37); Alanine Aminotransfer ALT/SGPT 47 U/L (16-61); Albumin, Serum 3.5 g/dL (3.2-5.0); Alkaline Phosphatase 73 U/L (45-117); Bilirubin, Direct 0.31 mg/dL (0.00-0.30); Cholesterol 106 mg/dL (200); Globulin 3.6 g/dL (2.2-4.2); High Density Lipoprotein 42 mg/dL; Protein, Total 7.1 g/dL (6.4-8.2); T4 Total, Thyroxin 12.2 ug/dL (4.5-12.1); Thyroid Stim Hormone (TSH) 2.48 uIU/mL (0.358-3.74); Triglycerides 62 mg/dL; Very Low Density Lipoprotein 12 mg/dL (5-40)
[2021-05-05 14:49] LABS: Anion Gap 6 (5-15); BUN 15 mg/dL (7-18); BUN/Creat Ratio 15.3 RATIO (10-20); Calcium,Total 8.7 mg/dL (8.5-10.1); Chloride 108 mmol/L (98-107); Cholesterol 108 mg/dL (200); Creatinine, Serum 0.98 mg/dL (0.70-1.30); EST Glomerular Filtration Rate 80 mL/min (>60); Est Glom Filt Rate - Afr Amer 96 mL/min (>60); Glucose 89 mg/dL (74-106); High Density Lipoprotein 43 mg/dL; PSA,Total - Annual Screen 0.52 ng/mL (0.00-4.00); Sodium Level 141 mmol/L (136-145); Triglycerides 63 mg/dL; Very Low Density Lipoprotein 13 mg/dL (5-40)
== END ==
PROVIDERS: Internal Medicine Cardiovascular Disease; PCP Family Medicine; Referring Provider Family Medicine; Visit Provider Family Medicine
DX: Z00.00 Encounter for general adult medical examination without abnormal findings (principal); I25.10 Atherosclerotic heart disease of native coronary artery without angina pectoris; E78.5 Hyperlipidemia, unspecified; Z95.1 Presence of aortocoronary bypass graft; I48.0 Paroxysmal atrial fibrillation; Z79.899 Other long term (current) drug therapy; Z12.5 Encounter for screening for malignant neoplasm of prostate
CPT/HCPCS: 36415; 80048; 80061; 80076; 84153; 84436; 84443; G0103

== ENCOUNTER → 2021-06-17 12:55 | Outpatient (CLI) | payer MEDICARE, SELFPAY ==
[2019-04-12 15:03] VITALS: BMI 32.7
[2021-06-17 14:28] LABS: T4 Total, Thyroxin 10.9 ug/dL (4.5-12.1); Thyroid Stim Hormone (TSH) 2.46 uIU/mL (0.358-3.74)
== END ==
PROVIDERS: PCP Family Medicine; Referring Provider Internal Medicine Cardiovascular Disease; Visit Provider Internal Medicine Cardiovascular Disease
DX: I48.0 Paroxysmal atrial fibrillation (principal); Z79.899 Other long term (current) drug therapy
CPT/HCPCS: 36415; 84436; 84443

== ENCOUNTER → 2021-10-03 13:06 | Outpatient (CLI) | payer MEDICARE, SELFPAY ==
[2019-04-12 15:03] VITALS: BMI 32.7
[2021-10-03 14:07] LABS: AST(SGOT) 51 U/L (15-37); Alanine Aminotransfer ALT/SGPT 62 U/L (16-61); Albumin, Serum 3.6 g/dL (3.2-5.0); Alkaline Phosphatase 65 U/L (45-117); Anion Gap 5 (5-15); BUN 16 mg/dL (7-18); BUN/Creat Ratio 14.8 RATIO (10-20); Bilirubin, Direct 0.29 mg/dL (0.00-0.30); Calcium,Total 8.8 mg/dL (8.5-10.1); Chloride 109 mmol/L (98-107); Cholesterol 105 mg/dL (200); Creatinine, Serum 1.08 mg/dL (0.70-1.30); EST Glomerular Filtration Rate 71 mL/min (>60); Est Glom Filt Rate - Afr Amer 86 mL/min (>60); Globulin 3.7 g/dL (2.2-4.2); Glucose 96 mg/dL (74-106); High Density Lipoprotein 37 mg/dL; Potassium 3.9 mmol/L (3.5-5.1); Protein, Total 7.3 g/dL (6.4-8.2); Sodium Level 142 mmol/L (136-145); Thyroid Stim Hormone (TSH) 2.48 uIU/mL (0.358-3.74); Triglycerides 90 mg/dL; Very Low Density Lipoprotein 18 mg/dL (5-40)
== END ==
PROVIDERS: PCP Family Medicine; Visit Provider Family Medicine
DX: I48.91 Unspecified atrial fibrillation (principal); Z95.1 Presence of aortocoronary bypass graft; I25.10 Atherosclerotic heart disease of native coronary artery without angina pectoris; I25.5 Ischemic cardiomyopathy; E78.5 Hyperlipidemia, unspecified; I48.0 Paroxysmal atrial fibrillation
CPT/HCPCS: 36415; 80048; 80061; 80076; 84443

== ENCOUNTER → 2021-10-09 13:22 | Outpatient (CLI) | payer MEDICARE, SELFPAY ==
[2019-04-12 15:03] VITALS: BMI 32.7
== END ==
PROVIDERS: PCP Family Medicine; Referring Provider Internal Medicine Cardiovascular Disease; Visit Provider Internal Medicine Cardiovascular Disease
DX: I48.91 Unspecified atrial fibrillation (principal)
CPT/HCPCS: 93225; 93226

== ENCOUNTER 2022-09-29 12:39 | Outpatient (CLI) | payer MEDICARE, SELFPAY ==
[2019-04-12 15:03] VITALS: BMI 32.7
[2022-09-29 13:55] LABS: AST(SGOT) 39 U/L (15-37); Alanine Aminotransfer ALT/SGPT 45 U/L (16-61); Albumin, Serum 3.3 g/dL (3.2-5.0); Alkaline Phosphatase 62 U/L (45-117); Bilirubin, Direct 0.31 mg/dL (0.00-0.30); Cholesterol 96 mg/dL (200); Globulin 3.6 g/dL (2.2-4.2); High Density Lipoprotein 35 mg/dL; Protein, Total 6.9 g/dL (6.4-8.2); Triglycerides 74 mg/dL; Very Low Density Lipoprotein 15 mg/dL (5-40)
[2022-09-29 15:09] LABS: Absolute Lymphocyte Count 2.03 X10^3/uL (0.83-4.51); Absolute Neutrophil Count 3.7 X10^3/uL (2.0-7.7); Basophil# 0.03 X10^3/uL; Basophil% 0.4 % (0-1); Eosinophil# 0.35 X10^3/uL; Eosinophils% 5.2 % (0-5); Hematocrit 45.4 % (40-54); Hemoglobin 15.2 g/dL (13.0-16.5); Lymphocyte # 2.03 X10^3/ul (0.83-4.51); Lymphocyte % 30.2 % (19-41); Mean Corp Hgb Conc 33.5 g/dL (32-36); Mean Corpuscular Hgb 30.3 pg (27.0-32.0); Mean Corpuscular Volume 90.6 fL (80-94); Mean Platelet Vol. 12.8 fl (6.2-12.0); Monocyte# 0.56 X10^3/uL; Monocyte% 8.3 % (0-10); NRBC Flagged by Analyzer 0 % (0-5); Neutrophil # 3.73 X10^3/uL (2.7-7.7); Neutrophil % 55.6 % (47-70); Platelet Count 113 K/mm3 (150-450); RBC Distribution Width CV 12.7 % (11.6-14.6); RBC Distribution Width SD 41.7 fl (35.1-43.9); Red Blood Count 5.01 M/mm3 (4.6-6.2); White Blood Count 6.7 K/mm3 (4.4-11.0)
[2022-09-29 15:39] LABS: Vitamin D,25 Hydroxy 25.4 ng/mL
[2022-09-29 15:49] LABS: Anion Gap 4 (5-15); BUN 15 mg/dL (7-18); BUN/Creat Ratio 17.6 RATIO (10-20); Calcium,Total 8.9 mg/dL (8.5-10.1); Chloride 108 mmol/L (98-107); Creatinine, Serum 0.85 mg/dL (0.70-1.30); EST Glomerular Filtration Rate 93 mL/min (>60); Est Glom Filt Rate - Afr Amer 113 mL/min (>60); Glucose 96 mg/dL (74-106); Potassium 4.6 mmol/L (3.5-5.1); Sodium Level 141 mmol/L (136-145); Thyroid Stim Hormone (TSH) 2.64 uIU/mL (0.358-3.74)
== END 2022-09-29 23:59 | disposition home or self-care (01) ==
PROVIDERS: Nurse Practitioner Gerontology; PCP Family Medicine; Referring Provider Nurse Practitioner Family; Visit Provider Nurse Practitioner Family
DX: E55.9 Vitamin D deficiency, unspecified (principal); R53.83 Other fatigue; E78.00 Pure hypercholesterolemia, unspecified
CPT/HCPCS: 36415; 80048; 80061; 80076; 82306; 84443; 85025

== ENCOUNTER → 2022-12-24 | Outpatient (CLI) | payer MEDICARE, SELFPAY ==
[2019-04-12 15:03] VITALS: BMI 32.7
[2022-12-24 10:53] LABS: AST(SGOT) 29 U/L (15-37); Alanine Aminotransfer ALT/SGPT 30 U/L (16-61); Albumin, Serum 3.5 g/dL (3.2-5.0); Alkaline Phosphatase 50 U/L (45-117); Bilirubin, Direct 0.25 mg/dL (0.00-0.30); Cholesterol 148 mg/dL (200); Globulin 3.7 g/dL (2.2-4.2); High Density Lipoprotein 38 mg/dL; Protein, Total 7.2 g/dL (6.4-8.2); Triglycerides 82 mg/dL; Very Low Density Lipoprotein 16 mg/dL (5-40)
== END | disposition home or self-care (01) ==
LOC: LAB 09:53
PROVIDERS: PCP Family Medicine; Referring Provider Nurse Practitioner Gerontology; Visit Provider Nurse Practitioner Gerontology
DX: I25.10 Atherosclerotic heart disease of native coronary artery without angina pectoris (principal); E78.5 Hyperlipidemia, unspecified; Z79.899 Other long term (current) drug therapy
CPT/HCPCS: 36415; 80061; 80076

== ENCOUNTER → 2023-06-15 | Outpatient (CLI) | payer MEDICARE, SELFPAY ==
[2019-04-12 15:03] VITALS: BMI 32.7
[2023-06-15 11:44] LABS: AST(SGOT) 39 U/L (15-37); Alanine Aminotransfer ALT/SGPT 31 U/L (16-61); Albumin, Serum 3.4 g/dL (3.2-5.0); Alkaline Phosphatase 48 U/L (45-117); Bilirubin, Direct 0.19 mg/dL (0.00-0.30); Cholesterol 149 mg/dL (200); Globulin 3.9 g/dL (2.2-4.2); High Density Lipoprotein 37 mg/dL; Protein, Total 7.3 g/dL (6.4-8.2); Triglycerides 116 mg/dL; Very Low Density Lipoprotein 23 mg/dL (5-40)
== END | disposition home or self-care (01) ==
LOC: LAB 10:14
PROVIDERS: PCP Family Medicine; Referring Provider Nurse Practitioner Gerontology; Visit Provider Nurse Practitioner Gerontology
DX: E78.5 Hyperlipidemia, unspecified (principal)
CPT/HCPCS: 36415; 80061; 80076

== ENCOUNTER → 2023-06-17 | Outpatient (CLI) | payer MEDICARE, SELFPAY ==
[2019-04-12 15:03] VITALS: BMI 32.7
[2023-06-17 14:37] LABS: Absolute Lymphocyte Count 2.47 X10^3/uL (0.83-4.51); Absolute Neutrophil Count 5.2 X10^3/uL (2.0-7.7); Basophil# 0.05 X10^3/uL; Basophil% 0.6 % (0-1); Eosinophil# 0.27 X10^3/uL; Eosinophils% 3.1 % (0-5); Hematocrit 48.2 % (40-54); Hemoglobin 16.2 g/dL (13.0-16.5); Lymphocyte # 2.47 X10^3/ul (0.83-4.51); Lymphocyte % 28.4 % (19-41); Mean Corp Hgb Conc 33.6 g/dL (32-36); Mean Corpuscular Hgb 30.8 pg (27.0-32.0); Mean Corpuscular Volume 91.6 fL (80-94); Monocyte# 0.71 X10^3/uL; Monocyte% 8.2 % (0-10); NRBC Flagged by Analyzer 0 % (0-5); Neutrophil # 5.16 X10^3/uL (2.7-7.7); Neutrophil % 59.2 % (47-70); Platelet Count 106 K/mm3 (150-450); RBC Distribution Width CV 12.9 % (11.6-14.6); Red Blood Count 5.26 M/mm3 (4.6-6.2); White Blood Count 8.7 K/mm3 (4.4-11.0)
[2023-06-17 15:06] LABS: Vitamin D,25 Hydroxy 40.8 ng/mL
[2023-06-17 15:13] LABS: Anion Gap 5 (5-15); BUN 16 mg/dL (7-18); BUN/Creat Ratio 16.3 RATIO (10-20); Calcium,Total 9.1 mg/dL (8.5-10.1); Chloride 109 mmol/L (98-107); Creatinine, Serum 0.98 mg/dL (0.70-1.30); EST Glomerular Filtration Rate 79 mL/min (>60); Est Glom Filt Rate - Afr Amer 96 mL/min (>60); Glucose 92 mg/dL (74-106); Potassium 3.9 mmol/L (3.5-5.1); Sodium Level 141 mmol/L (136-145); Thyroid Stim Hormone (TSH) 3.88 uIU/mL (0.358-3.74)
== END | disposition home or self-care (01) ==
LOC: LAB 13:58
PROVIDERS: PCP Family Medicine; Referring Provider Nurse Practitioner Gerontology; Visit Provider Nurse Practitioner Gerontology
DX: R06.09 Other forms of dyspnea (principal); R53.83 Other fatigue; E55.9 Vitamin D deficiency, unspecified
CPT/HCPCS: 36415; 80048; 82306; 83880; 84443; 85025

== ENCOUNTER → 2023-11-10 | Outpatient (CLI) | payer MEDICARE, SELFPAY ==
[2019-04-12 15:03] VITALS: BMI 32.7
[2023-11-10 16:38] LABS: AST(SGOT) 29 U/L (15-37); Alanine Aminotransfer ALT/SGPT 31 U/L (16-61); Cholesterol 125 mg/dL (200); High Density Lipoprotein 40 mg/dL; Triglycerides 103 mg/dL; Very Low Density Lipoprotein 21 mg/dL (5-40)
== END | disposition home or self-care (01) ==
PROVIDERS: PCP Family Medicine; Referring Provider Internal Medicine Cardiovascular Disease; Visit Provider Internal Medicine Cardiovascular Disease
DX: I25.10 Atherosclerotic heart disease of native coronary artery without angina pectoris (principal); E66.9 Obesity, unspecified; Z79.899 Other long term (current) drug therapy
CPT/HCPCS: 36415; 80061; 84450; 84460

== ENCOUNTER → 2024-05-18 | Outpatient (CLI) | payer MEDICARE, SELFPAY ==
[2019-04-12 15:03] VITALS: BMI 32.7
[2024-05-18 14:11] LABS: AST(SGOT) 34 U/L (15-37); Alanine Aminotransfer ALT/SGPT 31 U/L (16-61); Albumin, Serum 3.5 g/dL (3.2-5.0); Alkaline Phosphatase 49 U/L (45-117); Bilirubin, Direct 0.31 mg/dL (0.00-0.30); Cholesterol 153 mg/dL (200); Globulin 3.8 g/dL (2.2-4.2); High Density Lipoprotein 38 mg/dL; Protein, Total 7.3 g/dL (6.4-8.2); Triglycerides 110 mg/dL; Very Low Density Lipoprotein 22 mg/dL (5-40)
== END | disposition home or self-care (01) ==
LOC: LAB 13:09
PROVIDERS: PCP Family Medicine; Referring Provider Nurse Practitioner Gerontology; Visit Provider Nurse Practitioner Gerontology
DX: E78.00 Pure hypercholesterolemia, unspecified (principal); I48.0 Paroxysmal atrial fibrillation
CPT/HCPCS: 36415; 80061; 80076

== ENCOUNTER → 2024-06-13 | Outpatient (CLI) | payer MEDICARE, SELFPAY ==
[2019-04-12 15:03] VITALS: BMI 32.7
[2024-06-13 14:15] LABS: Anion Gap 5 (5-15); BUN 15 mg/dL (7-18); BUN/Creat Ratio 16.6 RATIO (10-20); CPK Total, Creatine Kinase 207 U/L (39-308); Calcium,Total 9.7 mg/dL (8.5-10.1); Chloride 110 mmol/L (98-107); EST Glomerular Filtration Rate 87 mL/min (>60); Est Glom Filt Rate - Afr Amer 105 mL/min (>60); Glucose 98 mg/dL (74-106); Potassium 3.8 mmol/L (3.5-5.1); Sodium Level 140 mmol/L (136-145)
== END | disposition home or self-care (01) ==
LOC: LAB 13:27
PROVIDERS: PCP Family Medicine; Referring Provider Internal Medicine Cardiovascular Disease; Visit Provider Internal Medicine Cardiovascular Disease
DX: I25.10 Atherosclerotic heart disease of native coronary artery without angina pectoris (principal); Z79.899 Other long term (current) drug therapy; R42 Dizziness and giddiness; R53.83 Other fatigue; R06.09 Other forms of dyspnea
CPT/HCPCS: 36415; 80048; 82550

== ENCOUNTER → 2024-08-18 | Outpatient (CLI) | payer MEDICARE, SELFPAY ==
[2019-04-12 15:03] VITALS: BMI 32.7
[2024-08-18 13:11] LABS: Cholesterol 111 mg/dL (200); High Density Lipoprotein 41 mg/dL; Triglycerides 83 mg/dL; Very Low Density Lipoprotein 17 mg/dL (5-40)
== END | disposition home or self-care (01) ==
LOC: LAB 11:51
PROVIDERS: PCP Family Medicine; Referring Provider Nurse Practitioner Gerontology; Visit Provider Nurse Practitioner Gerontology
DX: E78.5 Hyperlipidemia, unspecified (principal)
CPT/HCPCS: 36415; 80061

== ENCOUNTER 2024-10-06 12:57 | Observation (INO) | payer MEDICARE, SELFPAY ==
[2019-04-12 15:03] VITALS: BMI 32.7
[2024-10-06] VITALS (9 sets, daily range): BP systolic 149–200; BP diastolic 88–99; PULSE 62–90; RESP 12–22; TEMP 36.3–36.7; O2SAT 95–99; BMI 37.3
--- NOTE | 2024-10-06 13:12 | EKG12_ITS ---
Test Reason : Blood Pressure : */* mmHG Vent. Rate : 84 BPM Atrial Rate : 84 BPM P-R Int : 162 ms QRS Dur : 154 ms QT Int : 440 ms P-R-T Axes : 23 57 22 degrees QTcB Int : 519 ms Sinus rhythm with sinus arrhythmia with occasional Premature ventricular complexes Right bundle branch block Inferior infarct , age undetermined Abnormal ECG Confirmed by EYAD ABEL, FELICITA ([id number]), brands editor MADISON BRADSHAW ([id number]) on 10/11/2024 1:32:47 P M Referred By: Lucio Travis Confirmed By: FELICITA CASTANO MD
--- NOTE | 2024-10-06 13:14 | EDS_ITS ---
HPI History of Present Illness Chief Complaint: Shortness of Breath Informant: patient Narrative Narrative: 79-year-old male 2-3 weeks gradual onset edema in both of his legs along with a weight gain as a result, decreased urination, dyspnea with light exertion. He is not getting chest discomfort but he states with light exertion he is having pain in both of his shoulders that goes away quickly with resting. He is having palpitations off-and-on that feel like his paroxysmal A-fib, he is feeling that more often than usual. Not associated with syncope or near syncope. No abdominal or focal neurologic symptoms. He came in today because he checked his blood pressure for the first time in a while and it was over 200 systolic. No recent medication changes. The only thing that was different was that 3 weeks ago he had a COVID/influenza vaccination. [facility] Medical History Coronary artery disease WISE (dyspnea on exertion) Fatigue Dizziness nursing home current use of amiodarone Essential hypertension Pulmonary hypertension Atherosclerosis of coronary artery of [place] heart without angina pectoris Bradycardia Near syncope History of ST elevation myocardial infarction (STEMI) (04/10/19) Hyperlipidemia Allergic rhinitis Premature ventricular contraction Nonsustained ventricular tachycardia Ischemic cardiomyopathy Nephrolithiasis Chronic anticoagulation Obesity Right bundle branch block Paroxysmal atrial fibrillation Obstructive sleep apnea STEMI (ST elevation myocardial infarction) Atherosclerotic heart disease of [place] coronary artery with other forms of angina pectoris Home Medications ?Medication ?Instructions ?Recorded ?Last Taken ?Type loratadine 10 mg capsule 10 mg PO DAILY PRN PRN Allergies 04/10/19 04/09/19 08:00 History acetaminophen 650 mg 650 mg PO Q6H PRN Pain Or Fever 07/31/19 Unknown History tablet,extended release aspirin 81 mg tablet,delayed 81 mg PO DAILY 07/31/19 Unknown History release (Adult Aspirin Regimen) apixaban 5 mg tablet (Eliquis) 5 mg PO BID #60 tabs 05/03/20 Unknown Rx albuterol sulfate 90 mcg/actuation 2 puff inhalation Q6H PRN 02/04/22 Unknown Rx aerosol inhaler (Proventil HFA) shortness of breath or wheezing #3 ea metoprolol tartrate 25 mg tablet 12.5 mg (1/2 x 25 mg) PO BID #90 04/24/24 Unknown Rx tabs losartan 25 mg tablet 25 mg PO DAILY #90 tabs 06/13/24 Unknown Rx vit 1 tab PO BID 06/13/24 Unknown History [id number] 500 mg-50 mg-25 mg-40 mg tablet (Bioflex) isosorbide mononitrate 30 mg 30 mg PO DAILY #90 TABLETS 07/06/24 Unknown Rx tablet,extended release 24 hr ezetimibe 10 mg tablet 10 mg PO DAILY #90 TABLETS 09/12/24 Unknown Rx rosuvastatin 5 mg tablet 5 mg PO DAILY #90 TABLETS 09/12/24 Unknown Rx Allergy/AdvReac Type Severity Reaction Status Date / Time No Known Allergies Allergy Verified 10/06/24 12:58 Family History Father , of vascular complications CAD (coronary artery disease) Myocardial infarction, Onset Age: 60 Grandmother , in her 50's Myocardial infarction Sudden cardiac CAD (coronary artery disease) Surgical History History of coronary artery bypass surgery (~06/16/19) Status post ligation of left atrial appendage (06/16/19) S/P coronary artery bypass graft x 5 (06/16/19) Hx of knee surgery Stented coronary artery (04/10/19) Social History Smoking Status: Never smoker alcohol intake: never substance use type: does not use caffeine: Yes Type: carbonated beverages and tea ROS ROS ED Constitutional Constitutional ED: Denies chills or fever(s) Eyes Eyes: Denies change in vision or diplopia ENT ENT ED: Reports nasal congestion and rhinorrhea; Denies headache(s) or sore throat Cardiovascular Cardiovascular: Reports as per HPI, leg edema and palpitations; Denies chest pain, lightheadedness, orthopnea or paroxysmal nocturnal dyspnea Respiratory/Chest Respiratory/Chest: Reports dyspnea on exertion; Denies cough, orthopnea or paroxysmal nocturnal dyspnea Gastrointestinal Gastrointestinal: Denies abdominal pain, diarrhea, nausea or vomiting Genitourinary Genitourinary ED: Reports decreased urination; Denies dysuria or hematuria Musculoskeletal Musculoskeletal: Denies back pain or neck pain Integumentary Denies abscess or rash Neurologic Neurologic: Denies headache(s), paresthesias or weakness EXAM Physical Exam Const Vital Signs: 10/06/24 12:58 10/06/24 13:35 10/06/24 13:35 Temperature 98.1 F Temperature Source Oral Pulse Rate 90 Respiratory Rate 22 H Respiratory Effort Short of Breath Respiratory Depth Shallow Respiratory Pattern Tachypnea Blood Pressure 200/97 H Blood Pressure Mean 131 Pulse Ox 99 Oxygen Delivery Method Room Air Room Air Room Air 10/06/24 13:46 10/06/24 14:02 Temperature Temperature Source Pulse Rate 62 Respiratory Rate 13 Respiratory Effort Respiratory Depth Respiratory Pattern Blood Pressure 169/88 H 158/96 H Blood Pressure Mean 115 116 Pulse Ox 97 Oxygen Delivery Method Room Air Positive well nourished and well developed General Appearance ED: well developed and NAD HEENT Reports moist mucous membranes normocephalic and atraumatic Eyes PERRL and EOMs intact bilaterally Neck full ROM, supple and no JVD Resp normal respiratory effort and clear to auscultation bilaterally Cardio regular rate and regular rhythm Heart Sounds: murmur systolic II/ crescendo-decrescendo left sternal border Peripheral Pulses: pulses 2+ throughout GI non-tender and non-distended Auscultation: normoactive bowel sounds Palpation: soft Back/Spine no CVA tenderness General Back: other FROM Extremity normal to inspection General Extremety ED: Yes edema; Negative for pulses abnormal or tenderness General Extremity: edema bilateral lower extremity Details: moderate ([place] bilaterally symmetric no signs of cellulitis); Negative for pulses abnormal Neuro oriented x3, CN's II-XII intact bilaterally and no sensory deficits noted Sensorium / Orientation: awake and alert Motor Exam: strength 5/5 throughout Psych mental status grossly normal Skin no rashes or lesions noted and no wounds MDM MDM MDM Narrative Medical decision making narrative: 2 view chest x-ray shows mild congestive heart failure, before treating his blood pressure came down to 158/96 so we held off on hydralazine, and the rest of his labs are noted. BMP is ordered but the machine is down so we will not get results today/now. He does not have an elevated creatinine, but he is prerenal, presumably due to decreased flow from congestive heart failure. His troponin is within normal limits, his EKG shows no acute injury pattern, he does have a new right bundle branch block but this is compared with his old EKG which was 6 years ago; however, he does have a prior diagnosis in the EMR of a [facility], so this probably is not an acute change in the last week or 3. Given the symptoms of possible unstable angina with light exertion and respiratory deficiency I think admission is warranted. Discussed with hospitalist for admission for further workup. Patient is a patient of Dr. Gatica with cardiology. History & Record Review Additional record(s) reviewed:: Prior outpatient record (Prior echo from 2020 with 1+ mitral insufficiency, EF 50%, and trivial insufficiency of the 3 other valves) Lab Data Attestation: I reviewed the patient's lab results. Labs: Laboratory Results - last 24 hr 10/06/24 13:22 WBC 6.7 RBC 4.73 Hgb 14.8 Hct 41.8 MCV 88.4 MCH 31.3 MCHC 35.4 RDW Std Deviation 39.8 RDW Coeff of [place] 12.2 Plt Count 89 L MPV 12.2 H Immature Gran % (Auto) 0.300 Neut % (Auto) 63.2 Lymph % (Auto) 23.5 [place] % (Auto) 9.7 Eos % (Auto) 2.7 Baso % (Auto) 0.6 Absolute Neuts (auto) 4.2 Absolute Lymphs (auto) 1.57 Nucleated RBC % 0 Differential Comment SCANNED Platelet Estimate MOD DEC RBC Morphology NORM C+C Sodium 141 Potassium 4.1 Chloride 112 H Carbon Dioxide 24.0 Anion Gap 4 L BUN 26 H Creatinine 0.99 Est GFR (MDRD) Af Amer 94 Est GFR (MDRD) Non-Af 78 BUN/Creatinine Ratio 26.3 H Glucose 108 H Calcium 9.2 Troponin I High Sens 29 Radiography Diagnostic Testing: Clinical Impression(s) from Imaging Studies Chest X-Ray 10/06/24 13:35 IMPRESSION: Vascular congestion mild CHF with bibasilar atelectasis worse on the right side. Blunting of the right costophrenic angle. Electronically Signed: Shon Zafar MD at 13:53 EST , Two-view chest x-ray on my interpretation showing mild CHF and a small right pleural effusion radiology in agreement. Rhythm Strip Rhythm Strip: Sinus Rhythm Rate: 90 Ectopy: None EKG Initial EKG: Attestation: I personally reviewed and interpreted this EKG as follows: Interpretation: Sinus Rhythm, No Acute Injury Pattern and RBBB Prior EKG tracings: available for review Prior: Changed (Compared with prior 2018) Management Discussion w/another healthcare provider: Hospitalist Discharge Plan Triage Chief Complaint: Shortness of Breath ED Provider: Lucio Travis Dx/Rx/DC Orders Clinical Impression: Acute CHF, Anginal equivalent, Acute respiratory insufficiency, Accelerated hypertension, Pleural effusion, right Prescriptions: No Action acetaminophen 650 mg tablet extended release 650 mg PO Q6H PRN (Reason: Pain Or Fever) aspirin [Adult Aspirin Regimen] 81 mg tablet,delayed release (DR/EC) 81 mg PO DAILY albuterol sulfate [Proventil HFA] 90 mcg/actuation HFA aerosol inhaler 2 puff inhalation Q6H PRN (Reason: shortness of breath or wheezing) Qty: 3 3RF Bioflex 517-22-12-40 mg tablet 1 tab PO BID losartan 25 mg tablet 25 mg PO DAILY Qty: 90 3RF loratadine 10 MG capsule 10 mg PO DAILY PRN PRN (Reason: Allergies) Eliquis 5 mg tablet 5 mg PO BID Qty: 60 1RF metoprolol tartrate 25 mg tablet 12.5 mg PO BID Qty: 90 3RF isosorbide mononitrate 30 mg tablet extended release 24 hr 30 mg PO DAILY Qty: 90 3RF ezetimibe 10 mg tablet 10 mg PO DAILY Qty: 90 3RF rosuvastatin 5 mg tablet 5 mg PO DAILY Qty: 90 3RF Primary Care Provider: Grant Frances Referrals: Grant Frances MD [Primary Care Provider] - Print Language: Maldivian Disposition Disposition: Acute Care Hospital [facility]
[2024-10-06 13:35] LABS: Absolute Lymphocyte Count 1.57 X10^3/uL (0.83-4.51); Absolute Neutrophil Count 4.2 X10^3/uL (2.0-7.7); Basophil# 0.04 X10^3/uL; Basophil% 0.6 % (0-1); Eosinophil# 0.18 X10^3/uL; Eosinophils% 2.7 % (0-5); Hematocrit 41.8 % (40-54); Hemoglobin 14.8 g/dL (13.0-16.5); Lymphocyte # 1.57 X10^3/ul (0.83-4.51); Lymphocyte % 23.5 % (19-41); Mean Corp Hgb Conc 35.4 g/dL (32-36); Mean Corpuscular Hgb 31.3 pg (27.0-32.0); Mean Corpuscular Volume 88.4 fL (80-94); Mean Platelet Vol. 12.2 fl (6.2-12.0); Monocyte# 0.65 X10^3/uL; Monocyte% 9.7 % (0-10); NRBC Flagged by Analyzer 0 % (0-5); Neutrophil # 4.23 X10^3/uL (2.7-7.7); Neutrophil % 63.2 % (47-70); POSITIVE COUNT YES; Platelet Count 89 K/mm3 (150-450); RBC Distribution Width CV 12.2 % (11.6-14.6); RBC Distribution Width SD 39.8 fl (35.1-43.9); Red Blood Count 4.73 M/mm3 (4.6-6.2); White Blood Count 6.7 K/mm3 (4.4-11.0)
--- NOTE | 2024-10-06 13:35 | RAD_ITS ---
STUDY: X-RAY CHEST REASON FOR EXAM: Male, 79 years old. Sob TECHNIQUE: PA and lateral views of the chest. COMPARISON: Comparison is made with prior study dated December 06, 2020. FINDINGS: EKG electrodes are seen. Vessel congestion and mild CHF with bibasilar atelectasis more prominent on the right side. There is elevation of the right hemidiaphragm. Blunting of the right cost phrenic angle. Sternal cerclage wires are present from a prior sternotomy. A left atrial clip is seen. Normal mediastinum and jeanne. Normal visualized pulmonary arteries. There is atherosclerotic tortuosity of the aortic arch and descending thoracic aorta. Normal visualized thoracic spine. Normal visualized ribs, clavicles, and shoulders. There is no demonstrated abnormality of the visualized soft tissue structures of the upper abdomen. RAD/Chest PA and Lateral IMPRESSION: Vascular congestion mild CHF with bibasilar atelectasis worse on the right side. Blunting of the right costophrenic angle. Electronically Signed: Shon Zafar MD at 13:53 EST ,
[2024-10-06 13:37] LABS: Differential Indicated SCAN CRITERIA MET
[2024-10-06 14:03] LABS: Anion Gap 4 (5-15); BUN 26 mg/dL (7-18); BUN/Creat Ratio 26.3 RATIO (10-20); Calcium,Total 9.2 mg/dL (8.5-10.1); Chloride 112 mmol/L (98-107); Creatinine, Serum 0.99 mg/dL (0.70-1.30); EST Glomerular Filtration Rate 78 mL/min (>60); Est Glom Filt Rate - Afr Amer 94 mL/min (>60); Glucose 108 mg/dL (74-106); Potassium 4.1 mmol/L (3.5-5.1); Sodium Level 141 mmol/L (136-145); Troponin-I HS 29 pg/mL (3.0-78.0)
[2024-10-06 14:07] LABS: Differential Comment SCANNED; Platelet Estimate MOD DEC (ADEQ); Red Cell Morphology NORM C+C NORMAL (NORM C&C)
--- NOTE | 2024-10-06 15:06 | ED.RN ---
unable to complete med list due to hospitalist in chart
--- NOTE | 2024-10-06 15:33 | ECHOCS_ITS ---
Reason For Study: CHF Procedure This was a 2D Doppler, Color Flow transthoracic echocardiogram. Contrast injection was performed. Exam performed portable in patient room. Left Ventricle Normal LV size. The estimated ejection fraction is 50 %. Diastolic function is indeterminate. Right Ventricle Normal RV size. Normal systolic function. Atria The left atrium is moderately enlarged. Normal right atrium. No doppler evidence for ASD. Mitral Valve There is no mitral valve stenosis. Moderately severe (3+) mitral valve insufficiency. Tricuspid Valve There is no tricuspid stenosis. Trivial tricuspid valve insufficiency. Pulmonary artery systolic pressure is 30 mmHg. Aortic Valve Trisinus/trileaflet aortic valve. There is no aortic stenosis. Mild (1+) aortic valve insufficiency. Pulmonic Valve There is no pulmonic valvular stenosis. No pulmonic valve insufficiency. Great Vessels Normal aortic root. Pericardium/Pleural No pericardial effusion. Medication Diluted definity 2ml given slow IV push to enhance endocardial definition. MMode/2D Measurements & Calculations LVIDd: 5.8 cm IVSd: 1.5 cm asc Aorta Diam: 3.5 cm LVIDs: 4.1 cm LVPWd: 1.5 cm RVDd: 4.2 cm FS: 29.3 % LAV(MOD-bp): 98.1 ml LVAd ap4: 40.9 cm2 SV(MOD-sp4): 80.8 ml LAV(MOD-bp) Indexed: 39.4 ml/m2 LVLd ap4: 8.6 cm SI(MOD-sp4): 32.5 ml/m2 LAV(MOD-sp2): 93.9 ml EDV(MOD-sp4): 158.3 ml LAV(MOD-sp4): 101.6 ml EDV(sp4-el): 165.4 ml LVAs ap4: 26.6 cm2 LVLs ap4: 7.5 cm ESV(MOD-sp4): 77.5 ml ESV(sp4-el): 79.6 ml EF(MOD-sp4): 51.0 % EF(sp4-el): 51.9 % SV(sp4-el): 85.8 ml LA A4 area: 27.8 cm2 LA dimension(2D): 6.0 cm RA A4 area: 14.6 cm2 TAPSE: 2.0 cm Time Measurements MV dec time: 0.21 sec Doppler Measurements & Calculations MV E max patrick: 72.9 cm/sec Lat Peak E' Patrick: 11.7 cm/sec Med Peak E' Patrick: 5.5 cm/sec MV A max patrick: 60.7 cm/sec E/E' lat: 6.2 E/E' med: 13.2 MV E/A: 1.2 MV dec slope: 348.8 cm/sec2 Ao V2 max: 109.8 cm/sec LV V1 max: 96.5 cm/sec Ao max P.8 mmHg LV V1 max P.7 mmHg Ao V2 mean: 76.2 cm/sec Ao mean P.7 mmHg Ao V2 VTI: 24.5 cm PA V2 max: 103.5 cm/sec TR max patrick: 282.7 cm/sec TR max P.0 mmHg ECHO/Echo Complete W/ Contrast Interpretation Summary The estimated ejection fraction is 50 %. There is a small sized posterior and lateral wall motion abnormality with hypok inesis of the segments. Diastolic function is indeterminate. The left atrium is moderately enlarged. Moderately severe (3+) mitral valve insufficiency. Mild (1+) aortic valve insufficiency. Ordering Physician: James Cunningham Referring Physician: Grant Frances Performed By: Erin Wilkerson, RDCS, RVT
[2024-10-06] MEDS: Potassium Chloride Oral Tablet 20 MEQ PO (16:59)
--- NOTE | 2024-10-06 18:36 | HP.PCM.HOS_ITS ---
HPI - General General Date of Admission: 10/06/24 Date of Service: 10/06/24 Chief Complaint: Weight gain, anasarca, shortness of breath HPI Narrative MONISHA VALERIO, is a 79 M who presents to the emergency room at [facility] with complaints of weight gain and generalized edema in the arms and legs which started several weeks ago and has worsened. Patient also complained of sinus symptomology with sinus pressure but no purulent drainage and no fever or chills. Patient patient also stated that he had elevated blood pressure at home today. Patient denied any chest pain. Workup in the emergency room revealed a normal CBC, chemistry panel was remarkable for BUN of 26, beta natruretic peptide was pending at the time of this dictation. Chest x-ray obtained showed vascular congestion and mild CHF with bibasilar atelectasis worse on the right side and blunting of the right costophrenic angle. Patient was not hypoxic on room air at rest and did not appear to be dyspneic. Patient had moderate pitting edema in the lower legs bilaterally. Patient will be placed in observation status for acute CHF, echocardiogram will be obtained, he will be placed on IV Lasix and labs will be obtained in the morning. Pulse ox will be monitored. [facility] Medical History Coronary artery disease WISE (dyspnea on exertion) Fatigue Dizziness [facility] current use of amiodarone Essential hypertension Pulmonary hypertension Atherosclerosis of coronary artery of [place] heart without angina pectoris Bradycardia Near syncope History of ST elevation myocardial infarction (STEMI) (04/10/19) Hyperlipidemia Allergic rhinitis Premature ventricular contraction Nonsustained ventricular tachycardia Ischemic cardiomyopathy Nephrolithiasis Chronic anticoagulation Obesity Right bundle branch block Paroxysmal atrial fibrillation Obstructive sleep apnea STEMI (ST elevation myocardial infarction) Atherosclerotic heart disease of [place] coronary artery with other forms of angina pectoris Home Medications ?Medication ?Instructions ?Recorded ?Last Taken ?Type loratadine 10 mg capsule 10 mg PO DAILY PRN PRN Allergies 04/10/19 04/09/19 08:00 History acetaminophen 650 mg 650 mg PO Q6H PRN Pain Or Fever 07/31/19 Unknown History tablet,extended release aspirin 81 mg tablet,delayed 81 mg PO DAILY 07/31/19 Unknown History release (Adult Aspirin Regimen) apixaban 5 mg tablet (Eliquis) 5 mg PO BID #60 tabs 05/03/20 10/06/24 Rx albuterol sulfate 90 mcg/actuation 2 puff inhalation Q6H PRN 02/04/22 Unknown Rx aerosol inhaler (Proventil HFA) shortness of breath or wheezing #3 ea metoprolol tartrate 25 mg tablet 12.5 mg (1/2 x 25 mg) PO BID #90 04/24/24 10/06/24 Rx tabs losartan 25 mg tablet 25 mg PO DAILY #90 tabs 06/13/24 10/05/24 Rx vit 1 tab PO BID 06/13/24 Unknown History [id number] 500 mg-50 mg-25 mg-40 mg tablet (Bioflex) isosorbide mononitrate 30 mg 30 mg PO DAILY #90 TABLETS 07/06/24 10/06/24 Rx tablet,extended release 24 hr ezetimibe 10 mg tablet 10 mg PO DAILY #90 TABLETS 09/12/24 10/05/24 Rx rosuvastatin 5 mg tablet 5 mg PO DAILY #90 TABLETS 09/12/24 10/06/24 Rx Allergy/AdvReac Type Severity Reaction Status Date / Time No Known Allergies Allergy Verified 10/06/24 12:58 Family History Father , of vascular complications CAD (coronary artery disease) Myocardial infarction, Onset Age: 60 Grandmother , in her 50's Myocardial infarction Sudden cardiac CAD (coronary artery disease) Surgical History History of coronary artery bypass surgery (~06/16/19) Status post ligation of left atrial appendage (06/16/19) S/P coronary artery bypass graft x 5 (06/16/19) Hx of knee surgery Stented coronary artery (04/10/19) Social History Smoking Status: Never smoker alcohol intake: never substance use type: does not use caffeine: Yes Type: carbonated beverages and tea ROS Constitutional Constitutional: Denies anorexia, change in weight, chills, fatigue, fever(s), night sweats or weakness Eyes Eyes: Denies blurry vision, change in vision, discharge from eye(s) or eye pain Cardiovascular Cardiovascular: Reports dyspnea on exertion and edema; Denies chest pain, claudication or palpitations Respiratory/Chest Respiratory/Chest: Reports dyspnea and shortness of breath with exertion; Denies cough, hemoptysis or shortness of breath at rest Gastrointestinal Gastrointestinal: Denies abdominal pain, constipation, diarrhea, hematemesis, hematochezia, melena, nausea or vomiting Genitourinary Genitourinary: Denies dysuria, hematuria, urinary frequency, urinary hesitancy, urinary incontinence or urinary urgency Musculoskeletal Musculoskeletal: Denies back pain, joint pain, joint stiffness, joint swelling, myalgias or neck pain Neurologic Neurologic: Denies abnormal gait, abnormal speech, confusion, dizziness, focal weakness, headache(s), loss of vision, numbness, other visual disturbances, paresthesias, syncope or tingling Psychiatric Psychiatric: Denies anxiety, cognitive impairment, depression, irritability, mood swings or suicidal ideation Endocrine Endocrinology: Denies change in body appearance, cold intolerance, excessive sweating, heat intolerance, polydipsia or polyuria Hematologic/Lymphatic Hematologic/Lymphatic: Denies none, anemia, easy bleeding, easy bruising or lymphadenopathy Allergic/Immunologic Allergic/Immunologic: Denies rhinitis, urticaria, eczemia or asthma Vital Signs Vital Signs Vital Signs: 10/06/24 12:58 10/06/24 13:35 10/06/24 13:35 Temperature 98.1 F Temperature Source Oral Pulse Rate 90 Respiratory Rate 22 H Respiratory Effort Short of Breath Respiratory Depth Shallow Respiratory Pattern Tachypnea Blood Pressure 200/97 H Blood Pressure Mean 131 Blood Pressure Source Blood Pressure Position Blood Pressure Location Pulse Ox 99 Oxygen Delivery Method Room Air Room Air Room Air 10/06/24 13:46 10/06/24 14:02 10/06/24 14:34 Temperature 98.1 F Temperature Source Pulse Rate 62 62 Respiratory Rate 13 12 Respiratory Effort Respiratory Depth Respiratory Pattern Blood Pressure 169/88 H 158/96 H 162/90 H Blood Pressure Mean 115 116 114 Blood Pressure Source Blood Pressure Position Blood Pressure Location Pulse Ox 97 96 Oxygen Delivery Method Room Air 10/06/24 15:36 Temperature 98.0 F Temperature Source Oral Pulse Rate 71 Respiratory Rate 16 Respiratory Effort Respiratory Depth Respiratory Pattern Blood Pressure 157/99 H Blood Pressure Mean 118 Blood Pressure Source Monitor Blood Pressure Position Semi-Fowlers Blood Pressure Location Right Arm Pulse Ox 99 Oxygen Delivery Method Room Air Weight Weight: 128.14 kg Body Mass Index (BMI) 37.3 Physical Exam Const alert, oriented x3, no apparent distress and healthy appearing General Appearance: cooperative, well kempt and well developed Orientation / Consciousness: awake, oriented to person, oriented to place and oriented to time HEENT normocephalic, head/scalp atraumatic and moist oral mucous membranes Eyes PERRL, EOMs intact bilaterally and conjunctivae normal Neck supple, no JVD, thyroid normal and no carotid bruits General: trachea midline Resp normal respiratory effort, no retractions, no use of accessory muscles and clear to auscultation bilaterally Auscultation: Negative for rales, rhonchi or wheezes Cardio regular rate, regular rhythm, S1 normal heart sound, S2 normal heart sound, no murmurs, no rub and no gallops GI normal to inspection, nondistended, normoactive bowel sounds, soft to palpation, non-tender and non-distended Extremity Extremity Narrative: Patient has pitting edema of the lower legs bilaterally which is not severe Skin no rashes or lesions noted General Skin Exam: no breakdown Neuro oriented x3, CN's II-XII intact bilaterally, no focal motor deficits and no sensory deficits noted Sensorium / Orientation: awake and alert Speech: speech normal Psych affect normal Results Lab / Micro Data 10/06/24 13:22 10/06/24 13:22 Labs: Laboratory Results - last 24 hr 10/06/24 13:22: WBC 6.7, RBC 4.73, Hgb 14.8, Hct 41.8, MCV 88.4, MCH 31.3, MCHC 35.4, RDW Std Deviation 39.8, RDW Coeff of Porsche 12.2, Plt Count 89 L, MPV 12.2 H, Immature Gran % (Auto) 0.300, Neut % (Auto) 63.2, Lymph % (Auto) 23.5, [place] % (Auto) 9.7, Eos % (Auto) 2.7, Baso % (Auto) 0.6, Absolute Neuts (auto) 4.2, Absolute Lymphs (auto) 1.57, Nucleated RBC % 0, Differential Comment SCANNED, Platelet Estimate MOD DEC, RBC Morphology NORM C+C, Sodium 141, Potassium 4.1, C hloride 112 H, Carbon Dioxide 24.0, Anion Gap 4 L, BUN 26 H, Creatinine 0.99, Est GFR (MDRD) Af Amer 94, Est GFR (MDRD) Non-Af 78, BUN/Creatinine Ratio 26.3 H , Glucose 108 H, Calcium 9.2, Troponin I High Sens 29 Rhythm Strip Rhythm Strip: Sinus Rhythm Rate: 90 Ectopy: None Imaging Radiology Impression Chest X-Ray 10/06/24 13:35 IMPRESSION: Vascular congestion mild CHF with bibasilar atelectasis worse on the right side. Blunting of the right costophrenic angle. Electronically Signed: Shon Zafar MD at 13:53 EST , Assessment & Plan Assessment/Plan (1) Acute CHF: PLAN: Plan 1. Acute CHF-type unclear at this time, patient will be placed in observation status on PCU, he will receive IV Lasix and echocardiogram will be obtained tomorrow, labs will be repeated in the morning. Patient is not hypoxic currently at rest. #2 paroxysmal atrial fibrillation-patient is currently on anticoagulation and rate control medication #3 coronary artery disease-this appears to be stable at this time #4 pulmonary hypertension-again patient will be given IV Lasix, echocardiogram will be obtained #5 hyperlipidemia-patient is on a statin currently #6 past history of ischemic cardiomyopathy-patient is currently on metoprolol and losartan #7 possible sinusitis-patient complains of sinus pressure but he has no purulent drainage, I am reluctant to start antibiotics on the patient at this time, I have placed the patient on Sudafed for nasal congestion #8 essential hypertension-patient will remain on his present medications, blood pressure will be monitored Total clinical time spent by myself addressing the patient's medical issues, reviewing all of his data, and collaborating with patient's care team: 55 minutes Charges/Coding Visit Charges Inpatient E&M: 07944 Init Hosp L2
[2024-10-06] MEDS: Furosemide 40 MG/4 ML Vial IV (20:17)
[2024-10-06] MEDS: 0.9% Saline Lock 10 ML Syringe IV (20:19)
[2024-10-06] MEDS: Atorvastatin Calcium 10 MG Tablet PO (23:06)
[2024-10-06] MEDS: Metoprolol Tartrate 25 MG Tablet 12.5 MG PO (23:07)
[2024-10-06] MEDS: APIXABAN 5 MG TABLET PO (23:07)
[2024-10-07] VITALS (8 sets, daily range): BP systolic 137–175; BP diastolic 66–83; PULSE 71–83; RESP 12–18; TEMP 35.8–36.8; O2SAT 93–96; BMI 37.0
[2024-10-07] MEDS: 0.9% Saline Lock 10 ML Syringe IV ×2 (05:18→21:16)
[2024-10-07] MEDS: Furosemide 40 MG/4 ML Vial IV ×3 (05:18→21:16)
[2024-10-07 07:38] LABS: Anion Gap 4 (5-15); BUN 27 mg/dL (7-18); BUN/Creat Ratio 27.4 RATIO (10-20); Calcium,Total 8.9 mg/dL (8.5-10.1); Chloride 109 mmol/L (98-107); Creatinine, Serum 0.99 mg/dL (0.70-1.30); EST Glomerular Filtration Rate 78 mL/min (>60); Est Glom Filt Rate - Afr Amer 94 mL/min (>60); Estimated Creatinine Clearance 86.06 ml/min; Glucose 99 mg/dL (74-106); Potassium 3.8 mmol/L (3.5-5.1); Sodium Level 142 mmol/L (136-145)
[2024-10-07] MEDS: Potassium Chloride Oral Tablet 20 MEQ PO ×2 (10:08→17:03)
[2024-10-07] MEDS: Metoprolol Tartrate 25 MG Tablet 12.5 MG PO ×2 (10:09→21:17)
[2024-10-07] MEDS: Isosorbide Mononitrate 30 MG Tablet PO (10:09)
[2024-10-07] MEDS: Losartan Potassium 25 MG Tablet PO (10:09)
[2024-10-07] MEDS: Ezetimibe 10 MG Tablet PO (10:09)
[2024-10-07] MEDS: APIXABAN 5 MG TABLET PO ×2 (10:09→21:16)
[2024-10-07] MEDS: Aspirin E.C. 81 MG Tablet PO (10:10)
--- NOTE | 2024-10-07 11:54 | PN_ITS ---
Subjective Subjective Patient seen and examined. He said he felt much better today and only complained of mild lower extremity edema. Review of systems is otherwise negative. Objective Data Objective Data Vital Signs: Vital Signs Temp Pulse Resp BP Pulse Ox O2 Del Method 97.4 F L 80 12 139/68 H 95 Room Air 10/07/24 10:00 10/07/24 10:09 10/07/24 10:00 10/07/24 10:00 10/07/24 10:00 10/07/24 10:00 Oxygen Delivery Method Room Air Weight: 281 lb 1.43 oz Body Mass Index (BMI) 37.0 Intake & Output: Intake and Output for Last 24 Hours 10/05/24 10/06/24 10/07/24 23:59 23:59 23:59 Intake Total 920 / 920 Output Total 1500 / 1500 Balance -580 / -580 Lab / Micro Data 10/06/24 13:22 10/07/24 05:31 Labs: Laboratory Results - last 24 hr 10/06/24 13:22: WBC 6.7, RBC 4.73, Hgb 14.8, Hct 41.8, MCV 88.4, MCH 31.3, MCHC 35.4, RDW Std Deviation 39.8, RDW Coeff of Porsche 12.2, Plt Count 89 L, MPV 12.2 H, Immature Gran % (Auto) 0.300, Neut % (Auto) 63.2, Lymph % (Auto) 23.5, [place] % (Auto) 9.7, Eos % (Auto) 2.7, Baso % (Auto) 0.6, Absolute Neuts (auto) 4.2, Absolute Lymphs (auto) 1.57, Nucleated RBC % 0, Differential Comment SCANNED, Platelet Estimate MOD DEC, RBC Morphology NORM C+C, Sodium 141, Potassium 4.1, C hloride 112 H, Carbon Dioxide 24.0, Anion Gap 4 L, BUN 26 H, Creatinine 0.99, Est GFR (MDRD) Af Amer 94, Est GFR (MDRD) Non-Af 78, BUN/Creatinine Ratio 26.3 H , Glucose 108 H, Calcium 9.2, Troponin I High Sens 29 10/07/24 05:31: Sodium 142, Potassium 3.8, Chloride 109 H, Carbon Dioxide 29.0, Anion Gap 4 L, BUN 27 H, Creatinine 0.99, Estim Creat Clear Calc 86.06, Est GFR (MDRD) Af Amer 94, Est GFR (MDRD) Non-Af 78, BUN/Creatinine Ratio 27.4 H, Glucose 99, Calcium 8.9 Radiography Diagnostic Testing: Radiology Impression Chest X-Ray 10/06/24 13:35 IMPRESSION: Vascular congestion mild CHF with bibasilar atelectasis worse on the right side. Blunting of the right costophrenic angle. Electronically Signed: Shon Zafar MD at 13:53 EST , Rhythm Strip Rhythm Strip: Sinus Rhythm Rate: 90 Ectopy: None Physical Exam Const alert, oriented x3, no apparent distress and well nourished General Appearance: cooperative and well developed HEENT normocephalic, head/scalp atraumatic and moist oral mucous membranes Eyes PERRL and EOMs intact bilaterally Neck no lymphadenopathy and supple Lymph Lymphatic: no lymphadenopathy noted and no lymphedema noted Resp normal respiratory effort, normal air movement and clear to auscultation bilaterally Cardio regular rate, regular rhythm, S1 normal heart sound, S2 normal heart sound and no murmurs GI normal to inspection, nondistended, normoactive bowel sounds, soft to palpation, non-tender and non-distended Extremity normal capillary refill and no calf tenderness Extremity Narrative: mild 1+ bipedal pitting edema General Extremity: no tenderness to palpation of joints or extremities Skin General Skin Exam: no breakdown Neuro CN's II-XII intact bilaterally, no focal motor deficits and no sensory deficits noted Motor Exam: strength 5/5 throughout and general weakness Psych thought process normal, cooperative and affect normal Appearance: appropriate Assessment & Plan Assessment/Plan (1) Acute CHF: PLAN: Plan #Acute exacerbation of heart failure with unknown EF * Patient feels much better. He is on room air. He does have some mild 1+ lower extremity edema though. On IV Lasix * Monitor intake and output. 2D echo ordered. * Last echo and the MRI from March 2020 showed mild concentric left ventricular hypertrophy with moderately dilated left ventricle and estimated EF of 45% with moderately dilated right ventricle and mild global right ventricular systolic dysfunction and RVSP of 64 mmHg. * #Severe pulmonary hypertension: 2D echo results as above from 2019. Repeat 2D echo pending. Likely due to heart failure. On lasix. # Paroxysmal A-fib: On metoprolol and Eliquis. # Hyperlipidemia: On statin and ezetimibe #History of CAD with ischemic cardiomyopathy: * Status post CABG * On metoprolol and losartan as well as aspirin and Imdur. * Also on rosuvastatin and ezetimibe #Benign essential hypertension: On losartan metoprolol DVT prophylaxis: Already on Eliquis Disposition: Anticipate DC over the next 24 to 48 hours. Charges/Coding Visit Charges Inpatient E&M: 32684 Subs Hosp L2
--- NOTE | 2024-10-07 13:57 | CASEMGMT ---
Met with pt to complete LEE form. LEE form explained to pt at this time who voiced understanding and signed form. Original form placed in pt?s chart and copy provided to the pt. Pt states that he lives with his and that he is independent and denies any concerns going home at time of DC. Pt denies further needs at this time. Rodri ZALDIVAR RN CM
--- NOTE | 2024-10-07 21:12 | CPS ---
Patient refused PAP therapy for night time use.
[2024-10-07] MEDS: Atorvastatin Calcium 10 MG Tablet PO (21:16)
--- NOTE | 2024-10-08 01:49 | CPS ---
Pt did not want to use hospital cpap tonight.
[2024-10-08 05:59] VITALS: BP 135/80; PULSE 70; RESP 20; TEMP 36.6; O2SAT 97
[2024-10-08 06:00] VITALS: BMI 36.6
[2024-10-08] MEDS: Furosemide 40 MG/4 ML Vial IV (06:01)
[2024-10-08] MEDS: 0.9% Saline Lock 10 ML Syringe IV (06:01)
[2024-10-08 06:39] LABS: Absolute Lymphocyte Count 1.87 X10^3/uL (0.83-4.51); Absolute Neutrophil Count 3.8 X10^3/uL (2.0-7.7); Basophil# 0.02 X10^3/uL; Basophil% 0.3 % (0-1); Eosinophil# 0.25 X10^3/uL; Eosinophils% 3.9 % (0-5); Hematocrit 38.7 % (40-54); Lymphocyte # 1.87 X10^3/ul (0.83-4.51); Mean Corpuscular Hgb 30.4 pg (27.0-32.0); Mean Corpuscular Volume 90.6 fL (80-94); Mean Platelet Vol. 12.7 fl (6.2-12.0); Monocyte# 0.52 X10^3/uL; Monocyte% 8.1 % (0-10); NRBC Flagged by Analyzer 0 % (0-5); Neutrophil # 3.77 X10^3/uL (2.7-7.7); Neutrophil % 58.4 % (47-70); POSITIVE COUNT YES; Platelet Count 93 K/mm3 (150-450); RBC Distribution Width CV 12.2 % (11.6-14.6); RBC Distribution Width SD 40.5 fl (35.1-43.9); Red Blood Count 4.27 M/mm3 (4.6-6.2); White Blood Count 6.5 K/mm3 (4.4-11.0)
[2024-10-08 07:01] LABS: Anion Gap 5 (5-15); BUN 27 mg/dL (7-18); BUN/Creat Ratio 28.8 RATIO (10-20); Calcium,Total 9.3 mg/dL (8.5-10.1); Chloride 108 mmol/L (98-107); Creatinine, Serum 0.94 mg/dL (0.70-1.30); EST Glomerular Filtration Rate 83 mL/min (>60); Est Glom Filt Rate - Afr Amer 100 mL/min (>60); Estimated Creatinine Clearance 90.01 ml/min; Glucose 100 mg/dL (74-106); Potassium 3.8 mmol/L (3.5-5.1); Sodium Level 141 mmol/L (136-145)
[2024-10-08 07:09] LABS: Mean Corp Hgb Conc 33.6 g/dL (32-36)
[2024-10-08 07:28] VITALS: PULSE 67
[2024-10-08 08:08] VITALS: O2SAT 94
[2024-10-08] MEDS: Potassium Chloride Oral Tablet 20 MEQ PO (09:10)
[2024-10-08] MEDS: Isosorbide Mononitrate 30 MG Tablet PO (09:11)
[2024-10-08] MEDS: Ezetimibe 10 MG Tablet PO (09:11)
[2024-10-08] MEDS: Losartan Potassium 25 MG Tablet PO (09:11)
[2024-10-08 09:12] VITALS: BP 121/88; PULSE 80
[2024-10-08] MEDS: Metoprolol Tartrate 25 MG Tablet 12.5 MG PO (09:12)
[2024-10-08] MEDS: Aspirin E.C. 81 MG Tablet PO (09:12)
[2024-10-08] MEDS: APIXABAN 5 MG TABLET PO (09:12)
[2024-10-08 09:15] VITALS: BP 121/88; PULSE 80; RESP 16; TEMP 36.9; O2SAT 97
--- NOTE | 2024-10-08 09:45 | DCINST_ITS ---
Discharge Instructions Diet Discharge Diet: Low fat / Low cholesterol DC O2, CPAP, BIPAP needs PSN CPAP & BiPAP: BiPAP & CPAP Settings per PSN Mode CPAP 10/08/24 01:49 Additional Home O2 Discharge instructions: No Dressing / Incision Discharge Activity: Return to Normal Activity Dressing / Incision Call your doctor if you observe: Fever of 101 or Higher, Shortness of breath, Dizziness, Swelling in the ankles and Chest pain Follow Up Care Test Results: Test results from this visit will be discussed in further detail at your follow- up appointment, if applicable. Discharge Plan Admission Admit Date/Time: 10/06/24 14:45 Primary Reason for Your Visit: acute exacerbation of heart failure Attending Provider: Gilma Julio Primary Care Provider: Grant Frances Consulting Providers: James Cunningham Instructions Patient Instructions: Coping with Heart Failure Discharge Orders/Prescriptions Prescriptions: New furosemide 40 mg tablet 40 mg PO BID Qty: 60 2RF potassium chloride [Klor-Con M20] 20 mEq tablet,ER particles/crystals 20 meq PO BID Qty: 60 2RF Continued acetaminophen 650 mg tablet extended release 650 mg PO Q6H PRN (Reason: Pain Or Fever) aspirin [Adult Aspirin Regimen] 81 mg tablet,delayed release (DR/EC) 81 mg PO DAILY albuterol sulfate [Proventil HFA] 90 mcg/actuation HFA aerosol inhaler 2 puff inhalation Q6H PRN (Reason: shortness of breath or wheezing) Qty: 3 3RF Bioflex 937-93-25-40 mg tablet 1 tab PO BID losartan 25 mg tablet 25 mg PO DAILY Qty: 90 3RF Patient Comments: per pt takes in evening loratadine 10 MG capsule 10 mg PO DAILY PRN PRN (Reason: Allergies) Eliquis 5 mg tablet 5 mg PO BID Qty: 60 1RF metoprolol tartrate 25 mg tablet 12.5 mg PO BID Qty: 90 3RF isosorbide mononitrate 30 mg tablet extended release 24 hr 30 mg PO DAILY Qty: 90 3RF ezetimibe 10 mg tablet 10 mg PO DAILY Qty: 90 3RF Patient Comments: per pt takes in evening rosuvastatin 5 mg tablet 5 mg PO DAILY Qty: 90 3RF Referrals / Follow Up: Kelly Gatica MD [Med Staff - Active Staff] - Within 2 Weeks Grant Frances MD [Primary Care Provider] - Within 1 Week Disposition Disposition (needs filled in before D/C Order can be placed): Home, Self Care
--- NOTE | 2024-10-08 09:45 | DS.PCM_ITS ---
Providers Date of Admission: 10/06/24 Date of Discharge: 10/08/24 Primary Care Physician: Dr. Grant Frances MD Reason For Visit: ACUTE CHF Diagnosis Discharge Diagnosis (1) Acute CHF: Status: Acute Code(s): I50.9 - Heart failure, unspecified Plan #Acute exacerbation of heart failure with unknown EF * Patient feels much better. He is on room air. He does have some mild 1+ lower extremity edema though. On IV Lasix * Monitor intake and output. 2D echo ordered. * Last echo and the MRI from March 2020 showed mild concentric left ventricular hypertrophy with moderately dilated left ventricle and estimated EF of 45% with moderately dilated right ventricle and mild global right ventricular systolic dysfunction and RVSP of 64 mmHg. * #Severe pulmonary hypertension: 2D echo results as above from 2019. Repeat 2D echo pending. Likely due to heart failure. On lasix. # Paroxysmal A-fib: On metoprolol and Eliquis. # Hyperlipidemia: On statin and ezetimibe #History of CAD with ischemic cardiomyopathy: * Status post CABG * On metoprolol and losartan as well as aspirin and Imdur. * Also on rosuvastatin and ezetimibe #Benign essential hypertension: On losartan metoprolol DVT prophylaxis: Already on Eliquis Disposition: Anticipate DC over the next 24 to 48 hours. Medications at Discharge Home Medications loratadine 10 mg capsule 10 mg PO DAILY PRN PRN Allergies 04/10/19 acetaminophen 650 mg tablet,extended release 650 mg PO Q6H PRN Pain Or Fever 07/31/19 aspirin 81 mg tablet,delayed release (Adult Aspirin Regimen) 81 mg PO DAILY 07/31/19 apixaban 5 mg tablet (Eliquis) 5 mg PO BID #60 tabs 05/03/20 albuterol sulfate 90 mcg/actuation aerosol inhaler (Proventil HFA) 2 puff inhalation Q6H PRN shortness of breath or wheezing #3 ea 02/04/22 metoprolol tartrate 25 mg tablet 12.5 mg (1/2 x 25 mg) PO BID #90 tabs 04/24/24 losartan 25 mg tablet 25 mg PO DAILY #90 tabs 06/13/24 vit [id number] 500 mg-50 mg-25 mg-40 mg tablet (Bioflex) 1 tab PO BID 06/13/24 isosorbide mononitrate 30 mg tablet,extended release 24 hr 30 mg PO DAILY #90 TABLETS 07/06/24 ezetimibe 10 mg tablet 10 mg PO DAILY #90 TABLETS 09/12/24 rosuvastatin 5 mg tablet 5 mg PO DAILY #90 TABLETS 09/12/24 furosemide 40 mg tablet 40 mg PO BID #60 tabs 10/08/24 potassium chloride 20 mEq tablet,extended release(part/cryst) (Klor-Con M) 20 meq PO BID #60 tabs 10/08/24 Hospital Course Operations None Procedures 2-D Echocardiogram Summary of Care Provided Minutes Spent on Discharge: 48 Hospital Course: Patient is a 79-year-old male with past medical history as outlined was admitted to the ED on 10/06/2024 with a complaint of generalized edema and weight gain which started several weeks ago and had gradually worsened. He denied any chest pain or palpitations, dizziness or any other symptoms. On admission chest x-ray showed vascular congestion and mild CHF with bibasilar atelectasis worse on the right side. Patient was on room air but had by lateral lower extremity pitting edema. He was admitted and managed for acute exacerbation of heart failure with preserved ejection fraction as he had known EF of around 50% from 2D echo done in 2020. He was diuresed with IV Lasix. He had a repeat 2D echo done which showed EF of 50% with small size posterior and lateral wall motion abnormalities with hypokinesis of the segments and diastolic function which was indeterminate, left atrium which was moderately enlarged and moderately severe mitral valve insufficiency. Of note his 2D echo from 2020 showed much more severe hypokinesis of the left ventricle and so this 2D echo seem to be much more improved from 2020. His shortness of breath improved and he felt much better. He was therefore discharged home on 10/08/2024. He was discharged on p.o. Lasix 40 mg twice daily as well as p.o. potassium chloride 20 mEq twice daily. He is follow-up with his primary care doctor and with cardiology within 1 to 2 weeks. Patient seen and examined prior to discharge. He had no active complaints. He felt much better and wanted to be discharged home. Review of systems otherwise negative. Labs and vitals reviewed. Home medication reviewed and reconciled. Physical Exam Const alert, oriented x3, no apparent distress, healthy appearing and well nourished General Appearance: cooperative, comfortable, well kempt and well developed Orientation / Consciousness: awake, oriented to person, oriented to place and oriented to time Exam Limitations: no limitations HEENT normocephalic, head/scalp atraumatic, hearing grossly normal bilaterally and moist oral mucous membranes Mouth: oral and palatal mucosa normal and dry mucous membranes Eyes PERRL, EOMs intact bilaterally and conjunctivae normal Neck no lymphadenopathy, supple, no JVD, thyroid normal and no carotid bruits General: trachea midline Lymph Lymphatic: no lymphadenopathy noted and no lymphedema noted Resp normal respiratory effort, normal air movement, no retractions, no use of accessory muscles and clear to auscultation bilaterally Auscultation: Negative for rales, rhonchi or wheezes Cardio regular rate, regular rhythm, S1 normal heart sound, S2 normal heart sound, no murmurs, no rub and no gallops GI normal to inspection, nondistended, normoactive bowel sounds, soft to palpation, non-tender and non-distended Extremity normal to inspection, full ROM, normal capillary refill and no calf tenderness Extremity Narrative: mild 1+ bipedal pitting edema General Extremity: no tenderness to palpation of joints or extremities Skin no rashes or lesions noted General Skin Exam: no breakdown Neuro oriented x3, CN's II-XII intact bilaterally, moves all extremities, no focal motor deficits and no sensory deficits noted Sensorium / Orientation: awake and alert Speech: speech normal Motor Exam: strength 5/5 throughout and general weakness Psych thought process normal, cooperative and affect normal Appearance: appropriate Weight / BMI Weight Weight: 277 lb 5.464 oz Body Mass Index (BMI) 36.6 ABG / Lab / Microbiology Data 10/08/24 04:25 10/08/24 04:25 Laboratory: Laboratory Results - last 24 hr 10/08/24 04:25: WBC 6.5, RBC 4.27 L, Hgb 13.0, Hct 38.7 L, MCV 90.6, MCH 30.4, M CHC 33.6 D, RDW Std Deviation 40.5, RDW Coeff of Porsche 12.2, Plt Count 93 L, MPV 12.7 H, Immature Gran % (Auto) 0.300, Neut % (Auto) 58.4, Lymph % (Auto) 29.0, Will % (Auto) 8.1, Eos % (Auto) 3.9, Baso % (Auto) 0.3, Absolute Neuts (auto) 3.8, Absolute Lymphs (auto) 1.87, Nucleated RBC % 0, Sodium 141, Potassium 3.8, Chloride 108 H, Carbon Dioxide 29.0, Anion Gap 5, BUN 27 H, Creatinine 0.94, Estim Creat Clear Calc 90.01, Est GFR (MDRD) Af Amer 100, Est GFR (MDRD) Non-Af 83, BUN/Creatinine Ratio 28.8 H, Glucose 100, Calcium 9.3 Radiography Diagnostic Testing: Radiology Impression Echocardiogram 10/06/24 15:33 Interpretation Summary The estimated ejection fraction is 50 %. There is a small sized posterior and lateral wall motion abnormality with hypokinesis of the segments. Diastolic function is indeterminate. The left atrium is moderately enlarged. Moderately severe (3+) mitral valve insufficiency. Mild (1+) aortic valve insufficiency. Ordering Physician: James Cunningham Referring Physician: Grant Frances Performed By: Erin Wilkerson RDCS, RVT D/C Instructions Discharge Diet: Low fat / Low cholesterol Discharge Activity: Return to Normal Activity Weight Bearing Status: Weight bearing as tolerated Call your doctor if you observe: Fever of 101 or Higher, Shortness of breath, Dizziness, Swelling in the ankles and Chest pain DC O2, CPAP, BIPAP Needs PSN CPAP & BiPAP: BiPAP & CPAP Settings per PSN Mode CPAP 10/08/24 01:49 Additional Home O2 Discharge instructions: No DC home with Oxygen: No Meaningful Use Info Meaningful Use Meaningful Use Diagnoses (Choose all that apply): CHF CHF JVOANY/ARB ordered at discharge?: Yes Documented LVEF (%): 50 Ischemic Stroke Statin Dosing Therapy Reference: STATIN DOSE THERAPY REFERENCE: * Patients > 75 years receive moderate or high dose statin therapy. * Patients 75 years or YOUNGER should receive HIGH intensity statin dose unless contraindicated. You will be required to document reason for non-treatment if statin daily dose does not meet guidelines. HIGH DOSE STATIN THERAPY DAILY Atorvastatin > than or = to 40 mg Rosuvastatin > than or = to 20 mg Amlodipine + Atorvastatin > than or = to 2.5/40 mg Ezetimibe + Simvastatin 10/80 mg Simvastatin 80mg Discharge Plan Admission Admit Date/Time: 10/06/24 14:45 Primary Reason for Your Visit: acute exacerbation of heart failure Attending Provider: Gilma Julio Primary Care Provider: Grant Frances Consulting Providers: James Cunningham Instructions Patient Instructions: Coping with Heart Failure Discharge Orders/Prescriptions Prescriptions: New furosemide 40 mg tablet 40 mg PO BID Qty: 60 2RF potassium chloride [Klor-Con M20] 20 mEq tablet,ER particles/crystals 20 meq PO BID Qty: 60 2RF Continued acetaminophen 650 mg tablet extended release 650 mg PO Q6H PRN (Reason: Pain Or Fever) aspirin [Adult Aspirin Regimen] 81 mg tablet,delayed release (DR/EC) 81 mg PO DAILY albuterol sulfate [Proventil HFA] 90 mcg/actuation HFA aerosol inhaler 2 puff inhalation Q6H PRN (Reason: shortness of breath or wheezing) Qty: 3 3RF Bioflex 846-47-42-40 mg tablet 1 tab PO BID losartan 25 mg tablet 25 mg PO DAILY Qty: 90 3RF Patient Comments: per pt takes in evening loratadine 10 MG capsule 10 mg PO DAILY PRN PRN (Reason: Allergies) Eliquis 5 mg tablet 5 mg PO BID Qty: 60 1RF metoprolol tartrate 25 mg tablet 12.5 mg PO BID Qty: 90 3RF isosorbide mononitrate 30 mg tablet extended release 24 hr 30 mg PO DAILY Qty: 90 3RF ezetimibe 10 mg tablet 10 mg PO DAILY Qty: 90 3RF Patient Comments: per pt takes in evening rosuvastatin 5 mg tablet 5 mg PO DAILY Qty: 90 3RF Referrals / Follow Up: Kelly Gatica MD [Med Staff - Active Staff] - Within 2 Weeks Grant Frances MD [Primary Care Provider] - Within 1 Week Disposition Disposition (needs filled in before D/C Order can be placed): Home, Self Care Charges/Coding Visit Charges Inpatient E&M: 13557 Disch Hosp >30min
[2024-10-09 18:04] LABS: BNP,B-Type NATRIURETIC PEPTIDE 212.2 pg/mL (0-100)
== END 2024-10-08 09:45 | disposition home or self-care (01) ==
LOC: ED 14:22 → PCU 14:42
PROVIDERS: Admitting Provider Internal Medicine; Emergency Provider Emergency Medicine; PCP Family Medicine; Referring Provider Emergency Medicine; Visit Provider Student in an Organized Health Care Education/Training Program
DX: I11.0 Hypertensive heart disease with heart failure (principal); I50.31 Acute diastolic (congestive) heart failure; I27.20 Pulmonary hypertension, unspecified; I48.0 Paroxysmal atrial fibrillation; I25.10 Atherosclerotic heart disease of native coronary artery without angina pectoris; Z79.01 Long term (current) use of anticoagulants; Z79.82 Long term (current) use of aspirin; I25.5 Ischemic cardiomyopathy; E78.5 Hyperlipidemia, unspecified; I08.3 Combined rheumatic disorders of mitral, aortic and tricuspid valves; Z79.899 Other long term (current) drug therapy
CPT/HCPCS: 36415; 71046; 80048; 83880; 84484; 85025; 93005; 93306; 96374; 96376; 97802; 99221; 99285; Q9957; A4216; C8929; G0378; J1940

== ENCOUNTER → 2024-11-17 | Outpatient (CLI) | payer MEDICARE, SELFPAY ==
[2019-04-12 15:03] VITALS: BMI 32.7
[2024-11-17 11:31] LABS: Anion Gap 4 (5-15); BUN 32 mg/dL (7-18); BUN/Creat Ratio 29.6 RATIO (10-20); Calcium,Total 9.5 mg/dL (8.5-10.1); Chloride 110 mmol/L (98-107); Creatinine, Serum 1.08 mg/dL (0.70-1.30); EST Glomerular Filtration Rate 70 mL/min (>60); Est Glom Filt Rate - Afr Amer 85 mL/min (>60); Glucose 88 mg/dL (74-106); Potassium 3.9 mmol/L (3.5-5.1); Sodium Level 142 mmol/L (136-145)
== END | disposition home or self-care (01) ==
LOC: LAB 09:37
PROVIDERS: PCP Family Medicine; Referring Provider Internal Medicine Cardiovascular Disease; Visit Provider Internal Medicine Cardiovascular Disease
DX: R42 Dizziness and giddiness (principal); R06.09 Other forms of dyspnea; R53.83 Other fatigue; I10 Essential (primary) hypertension
CPT/HCPCS: 36415; 80048

== ENCOUNTER → 2024-12-20 | Outpatient (CLI) | payer MEDICARE, SELFPAY ==
[2019-04-12 15:03] VITALS: BMI 32.7
--- NOTE | 2024-12-20 16:17 | STRESSREP ---
Stress Test Report Date: 12/20/2024 Procedure: Pharmacologic stress nuclear imaging study Indications: Dyspnea on exertion Consent: Per the patient Procedure: The patient underwent pharmacologic (Regadenoson) evaluation with a peak heart rate of 90 beats per minute (63%predicted maximal heart rate) and a peak blood pressure of 150/80 mmHg. The baseline ECG demonstrated normal sinus rhythm, right bundle branch block, occasional PVCs. EKG during lexiscan infusion revealed no significant ischemic changes. EKG post infusion revealed no significant ischemic changes [There were no cardiac dysrhythmias pretest, during pharmacologic infusion, or recovery]. [There was no complaint of chest discomfort during pharmacologic infusion or recovery]. The examination was discontinued secondary to completion of protocol. Impression: 1. Lexiscan stress test test is negative for Lexiscan infusion induced EKG changes of ischemia. 2. Lexiscan stress test test is negative for Lexiscan infusion induced chest pain. 3. Results of the nuclear portion of the test is as below Myocardial perfusion imaging study: Technique: The patient was injected with 15 millicuries of technetium 99m Cardiolite and subsequently rest SPECT Cardiolite nuclear imaging was obtained in the horizontal long, vertical long, and short axis views. The patient underwent pharmacologic [Regadenoson 0.4mg] evaluation. Please see above for details. The patient was injected with 45 millicuries of technetium 99m Cardiolite and subsequently stress SPECT Cardiolite nuclear imaging was obtained in the horizontal long, vertical long, and short axis views. A gated Cardiolite study at peak stress was obtained. Interpretation: Rest and stress SPECT Cardiolite nuclear imaging status post realignment, normalization, and attenuation correction demonstrate mild fixed defect involving the apex suggestive of prior infarction. There is decrease in the radioisotope uptake in the inferior wall prior to attenuation correction that improves with attenuation correction suggestive of diaphragmatic attenuation artifact. There is no evidence of significant ischemia. Gated images reveal severe hypokinesis of the apex and moderate hypokinesis of the other zapata. The reported LVEF is 36%. Impression: 1. There is no evidence of significant ischemia. Evidence of prior apical myocardial infarction. 2. Estimated ejection fraction is 36%. This note was generated with [employer] software. It may contain incorrect words, spelling, and punctuation that were not noted in checking the note before signing.
== END | disposition home or self-care (01) ==
LOC: CVS 06:41
PROVIDERS: PCP Family Medicine; Referring Provider Internal Medicine Cardiovascular Disease; Visit Provider Internal Medicine Cardiovascular Disease
DX: R06.09 Other forms of dyspnea (principal); I11.0 Hypertensive heart disease with heart failure; I50.22 Chronic systolic (congestive) heart failure; I25.10 Atherosclerotic heart disease of native coronary artery without angina pectoris; I25.5 Ischemic cardiomyopathy; I25.2 Old myocardial infarction; Z95.5 Presence of coronary angioplasty implant and graft; E78.5 Hyperlipidemia, unspecified; Z95.1 Presence of aortocoronary bypass graft; I34.0 Nonrheumatic mitral (valve) insufficiency
CPT/HCPCS: 78452; 93017; A9500; A4216; J2785

== ENCOUNTER → 2025-01-11 | Outpatient (CLI) | payer MEDICARE, SELFPAY ==
[2019-04-12 15:03] VITALS: BMI 32.7
[2025-01-11 21:10] LABS: ALB/GLOB Ratio 1.3 RATIO (0.9-2.4); AST(SGOT) 40 U/L (<=37); Alanine Aminotransfer ALT/SGPT 33 U/L (<=46); Albumin, Serum 4.2 g/dL (3.4-4.8); Alkaline Phosphatase 48 U/L (40-129); Anion Gap 12 (5-15); BUN 23 mg/dL (4-19); BUN/Creat Ratio 20.6 RATIO (10-20); Calcium,Total 10.1 mg/dL (7.6-11.0); Carbon Dioxide 25.7 mmol/L (21.0-32.0); Chloride 102 mmol/L (98-108); Cholesterol 99 mg/dL (<=200); Creatinine, Serum 1.11 mg/dL (0.70-1.20); EST Glomerular Filtration Rate 68 (>60); Globulin 3.3 g/dL (2.2-4.2); Glucose 89 mg/dL (70-99); High Density Lipoprotein 37 mg/dL; Low Density Lipoprotein Calc. 40 mg/dL; PSA,Total- Diagnostic 0.75 ng/mL (0.00-4.00); Potassium 4.2 mmol/L (3.3-5.1); Protein, Total 7.5 g/dL (5.9-8.4); Sodium Level 139 mmol/L (133-145); Total Bilirubin 1.86 mg/dL (0.00-1.30); Triglycerides 113 mg/dL; Very Low Density Lipoprotein 23 mg/dL (5-40)
== END | disposition home or self-care (01) ==
LOC: MFPLAB 14:08
PROVIDERS: PCP Family Medicine; Referring Provider Family Medicine; Visit Provider Family Medicine
DX: I10 Essential (primary) hypertension (principal); C61 Malignant neoplasm of prostate
CPT/HCPCS: 36415; 80053; 80061; 84153

== ENCOUNTER → 2025-06-08 | Outpatient (CLI) | payer MEDICARE, SELFPAY ==
[2019-04-12 15:03] VITALS: BMI 32.7
[2025-06-08 14:51] LABS: AST(SGOT) 33 U/L (<=37); Alanine Aminotransfer ALT/SGPT 30 U/L (<=46); Albumin, Serum 4.1 g/dL (3.4-4.8); Alkaline Phosphatase 43 U/L (40-129); Anion Gap 12 (5-15); BUN 23 mg/dL (4-19); BUN/Creat Ratio 22.2 RATIO (10-20); Bilirubin, Direct 0.45 mg/dL (0.00-0.30); Calcium,Total 9.7 mg/dL (7.6-11.0); Carbon Dioxide 22.8 mmol/L (21.0-32.0); Chloride 104 mmol/L (98-108); Cholesterol 100 mg/dL (<=200); Globulin 3.1 g/dL (2.2-4.2); Glucose 102 mg/dL (70-99); Low Density Lipoprotein Calc. 44 mg/dL; Potassium 4.2 mmol/L (3.3-5.1); Triglycerides 92 mg/dL; Very Low Density Lipoprotein 18 mg/dL (5-40); cholesterol:hdl ratio screen 2.66
== END | disposition home or self-care (01) ==
PROVIDERS: PCP Family Medicine; Referring Provider Internal Medicine Cardiovascular Disease; Visit Provider Internal Medicine Cardiovascular Disease
DX: E78.00 Pure hypercholesterolemia, unspecified (principal); I10 Essential (primary) hypertension
CPT/HCPCS: 36415; 80048; 80061; 80076

== ENCOUNTER → 2025-07-23 | Outpatient (CLI) | payer MEDICARE, SELFPAY ==
[2019-04-12 15:03] VITALS: BMI 32.7
[2025-07-23 15:13] LABS: AST(SGOT) 32 U/L (<=37); Alanine Aminotransfer ALT/SGPT 28 U/L (<=46); Albumin, Serum 4.0 g/dL (3.4-4.8); Alkaline Phosphatase 41 U/L (40-129); Anion Gap 11 (5-15); BUN 22 mg/dL (4-19); BUN/Creat Ratio 21.4 RATIO (10-20); CPK Total, Creatine Kinase 243 U/L (24-195); Calcium,Total 9.5 mg/dL (7.6-11.0); Carbon Dioxide 22.6 mmol/L (21.0-32.0); Chloride 106 mmol/L (98-108); Cholesterol 96 mg/dL (<=200); Globulin 2.9 g/dL (2.2-4.2); Glucose 100 mg/dL (70-99); Low Density Lipoprotein Calc. 39 mg/dL; Potassium 4.2 mmol/L (3.3-5.1); Triglycerides 95 mg/dL; Very Low Density Lipoprotein 19 mg/dL (5-40); cholesterol:hdl ratio screen 2.52
== END | disposition home or self-care (01) ==
LOC: LAB 14:05
PROVIDERS: PCP Family Medicine; Referring Provider Internal Medicine Cardiovascular Disease; Visit Provider Internal Medicine Cardiovascular Disease
DX: I25.10 Atherosclerotic heart disease of native coronary artery without angina pectoris (principal); I10 Essential (primary) hypertension; R42 Dizziness and giddiness; R53.83 Other fatigue; R06.09 Other forms of dyspnea; E78.5 Hyperlipidemia, unspecified
CPT/HCPCS: 36415; 80053; 80061; 82550

== ENCOUNTER → 2025-07-27 | Outpatient (CLI) | payer MEDICARE, SELFPAY ==
[2019-04-12 15:03] VITALS: BMI 32.7
[2025-07-27 13:10] LABS: CPK Total, Creatine Kinase 204 U/L (24-195)
== END | disposition home or self-care (01) ==
PROVIDERS: PCP Family Medicine; Referring Provider Internal Medicine Cardiovascular Disease; Visit Provider Internal Medicine Cardiovascular Disease
DX: R53.83 Other fatigue (principal)
CPT/HCPCS: 36415; 81001; 82550

== ENCOUNTER → 2025-08-16 | Outpatient (CLI) | payer MEDICARE, SELFPAY ==
[2019-04-12 15:03] VITALS: BMI 32.7
--- NOTE | 2025-08-16 09:56 | ECHOCS_ITS ---
Reason For Study Reason For Study: ABN EKG Procedure This was a 2D Doppler, Color Flow transthoracic echocardiogram. The study was technically difficult. Contrast injection was performed. Exam performed in department. Left Ventricle Mild concentric left ventricular hypertrophy. Mildly dilated left ventricle. Mild generalized hypokinesis. Severe posterior and inferior hypokinesis. Estimated LVEF 35-40%. Stage 1 diastolic dysfunction. Right Ventricle Normal right ventricle. Atria The left atrium is mildly enlarged. Normal right atrium. Mitral Valve Moderate to severe posteriorly directed eccentric mitral valve regurgitation. Tricuspid Valve Trivial tricuspid valve insufficiency. Unable to estimate RV systolic pressure due to insufficient tricuspid regurgitant envelope. Aortic Valve Trisinus/trileaflet aortic valve. Pulmonic Valve The pulmonic valve is not well visualized. Great Vessels Normal sized aortic root. Medication 22 gauge I.V. with prn adaptor inserted into right arm. Diluted definity 3ml given slow IV push to enhance endocardial definition. MMode/2D Measurements & Calculations LVIDd: 5.7 cm IVSd: 1.4 cm Ao root diam: 3.4 cm LVIDs: 3.9 cm LVPWd: 1.3 cm FS: 31.2 % LAV(MOD-bp): 86.5 ml LVAd ap4: 40.4 cm2 SV(MOD-sp4): 57.1 ml LAV(MOD-bp) Indexed: 35.4 ml/m2 LVLd ap4: 8.5 cm SI(MOD-sp4): 23.3 ml/m2 LAV(MOD-sp2): 75.5 ml EDV(MOD-sp4): 158.2 ml LAV(MOD-sp4): 89.6 ml EDV(sp4-el): 163.4 ml LVAs ap4: 31.3 cm2 LVLs ap4: 8.2 cm ESV(MOD-sp4): 101.1 ml ESV(sp4-el): 102.2 ml EF(MOD-sp4): 36.1 % EF(sp4-el): 37.5 % SV(sp4-el): 61.2 ml LA A4 area: 27.5 cm2 LA dimension(2D): 4.2 cm RA A4 area: 12.0 cm2 Time Measurements MV dec time: 0.48 sec Doppler Measurements & Calculations MV E max patrick: 46.7 cm/sec Lat Peak E' Patrick: 14.0 cm/sec Med Peak E' Patrick: 6.5 cm/sec MV A max patrick: 54.9 cm/sec E/E' lat: 3.3 E/E' med: 7.2 MV E/A: 0.85 MV V2 max: 63.9 cm/sec Ao V2 max: 98.3 cm/sec MV max P.6 mmHg MV dec slope: 97.6 cm/sec2 Ao max P.9 mmHg MV V2 mean: 32.6 cm/sec Ao V2 mean: 64.7 cm/sec MV mean P.51 mmHg Ao mean P.0 mmHg MV V2 VTI: 27.4 cm Ao V2 VTI: 20.2 cm AV (velocity ratio): 0.72 LV V1 max: 77.3 cm/sec PA V2 max: 89.8 cm/sec LV V1 max P.4 mmHg PA V2 mean: 76.4 cm/sec LV V1 mean P.5 mmHg LV V1 mean: 58.6 cm/sec LV V1 VTI: 14.5 cm ECHO/Echo Complete W/ Contrast Interpretation Summary Mild concentric left ventricular hypertrophy. Mildly dilated left ventricle. Mild generalized hypokinesis. Severe posterior and inferior hypokinesis. Estima sawyer LVEF 35-40%. Stage 1 diastolic dysfunction. The left atrium is mildly enlarged. Moderate to severe posteriorly directed eccentric mitral valve regurgitation. Ordering Physician: En^Kelly^^^ Referring Physician: Kelly Gatica Performed By: Mesha Griffin RCS
[2025-08-16 10:49] LABS: Mucous, Urine 0 SEEN /hpf (<or=2+)
[2025-08-16 11:05] LABS: Color, Urine Yellow (Yellow); Glucose, Dipstick Normal (Normal); Ketone-Dipstick Negative (Negative); Leukocyte Esterase-Dipstick 25 /ul (Negative); Nitrite-Dipstick Negative (Negative); Occult Blood-Urine 10 /ul (Negative); Protein-Dipstick 15 mg/dl (Negative); Specific Gravity, Urine 1.015 (1.002-1.030); Urine Bilirubin Dipstick Negative (Negative)
[2025-08-16 11:12] LABS: Red Blood Cells-Urine 0-5 SEEN /hpf (0-5); Squamous Epithelial Cells - UA 0-5 SEEN /hpf (0-5)
== END | disposition home or self-care (01) ==
PROVIDERS: PCP Family Medicine; Referring Provider Internal Medicine Cardiovascular Disease; Visit Provider Internal Medicine Cardiovascular Disease
DX: I49.3 Ventricular premature depolarization (principal); R53.83 Other fatigue; I10 Essential (primary) hypertension
CPT/HCPCS: 81001; 93306; Q9957; A4216; C8929